=== PATIENT | male | born 1970 ===

== ENCOUNTER 2022-04-30 15:31 | Emergency (ER) | payer BC, SELFPAY ==
[2022-04-30 16:00] VITALS: BP 155/92; PULSE 56; RESP 18; TEMP 36.8; O2SAT 97; BMI 43.5
--- NOTE | 2022-04-30 17:45 | ED_ITS ---
HPI - Back Pain/Injury General Time Seen by Provider: 17:45 Date Seen: 04/30/22 Chief Complaint: Back Injury/Pain Stated Complaint: Muscle spasms lower back Time Seen by Provider: 04/30/22 17:45 Source: patient, RN notes reviewed and old records reviewed Mode of arrival: ambulatory Limitations: no limitations History of Present Illness HPI Narrative: Patient is a very pleasant 51-year-old gentleman with history of back injury who notes worsening low back and left gluteal pain for approximately 1 month. Patient states this seemed to come on approximately month month ago when he was in the gym. This involved lower back tightness that would wrap around the abdomen. He was seen and given cyclobenzaprine but he did not feel that it helped greatly. His never been on steroids. He states that the pain seems to be getting worse. He notes that he has discomfort extending into both gluteal areas left greater than right. He does not have pain into his legs. He feels like his glutes and quads are very tight and does cm for him have improvement when he uses the foam rolling ball and stretches out. He notes that occasionally both of his small toes are numb but not at this time. He has not had fever chills. He denies any other trauma. No loss of bowel or bladder control or numbness in the genital area. Related Data Home Medications Medication Instructions Recorded Confirmed albuterol 04/30/22 Previous Rx's Medication Instructions Recorded methylprednisolone 4 mg tablets in See Rx Instructions PO .COMPLEX 04/30/22 a dose pack (Medrol (Rajat)) #21 ea Allergies Allergy/AdvReac Type Severity Reaction Status Date / Time iodine Allergy Intermediate Verified 04/30/22 16:06 Review of Systems Status of ROS: Reports: 6 or more systems reviewed and unremarkable except as noted in History and below Const: Denies: fever or chills ENMT: Denies: neck pain Cardio: Denies: shortness of breath with exertion Resp: Denies: shortness of breath GI: Reports: abdominal pain (Pain wraps around to the lower abdominal area.) : Denies: painful urination or urinary frequency Musculo: Reports: back pain; Denies: neck pain Neuro: Denies: headache Psych: Denies: anxiety Exam Narrative: Exam Narrative: Patient is alert and oriented. No acute distress. He does stand up from sitting position and does take a moment to stretch. He has no palpable tenderness down lumbar spine. Denies pain with palpation into the buttocks. He is hesitant to do straight forward bend. Lower extremity strength and motor is fully intact. 1+ DTRs at the knees and the ankles. He is able to stand on his toes stand on his ankles. No evidence of weakness in the feet. Hip flexors are intact bilaterally. Sensation is fully intact Const: Vital Signs, click to edit/add: Vital Signs - 24 hr 04/30/22 16:00 Temperature 98.3 F Pulse Rate [Pulse Oximeter] 56 L Respiratory Rate 18 Blood Pressure [Ri ght Upper Arm] 155/92 H Pulse Oximetry 97 Oxygen Delivery Me thod Room Air Documenting provider has reviewed patient's vital signs: yes Course Course Hospital Course: Given the fact that this has been ongoing for a month we did elect to do x-rays which by my read show no evidence of acute findings. Vital Signs Vital signs: Initial Vital Signs Temperature 98.3 F 04/30/22 16:00 Temperature Source Temporal Artery Scan 04/30/22 16:00 Pulse Rate 56 L 04/30/22 16:00 Respiratory Rate 18 04/30/22 16:00 Blood Pressure 155/92 H 04/30/22 16:00 Blood Pressure Mean 113 04/30/22 16:00 Blood Pressure Position Supine 04/30/22 16:00 Pulse Oximetry 97 04/30/22 16:00 Oxygen Delivery Method 04/30/22 16:00 Vital Signs Temperature 98.3 F 04/30/22 16:00 Pulse Rate 56 L 04/30/22 16:00 Respiratory Rate 18 04/30/22 16:00 Blood Pressure 155/92 H 04/30/22 16:00 Pulse Oximetry 97 04/30/22 16:00 Oxygen Delivery Method 04/30/22 16:00 Temperature 98.3 F 04/30/22 16:00 Pulse Rate 56 L 04/30/22 16:00 Respiratory Rate 18 04/30/22 16:00 Blood Pressure 155/92 H 04/30/22 16:00 Pulse Oximetry 97 04/30/22 16:00 Oxygen Delivery Method 04/30/22 16:00 MDM - Back Pain/Injury MDM Narrative Medical decision making narrative: 1. Low back pain-patient is noted to have reassuring x-rays and no red flag symptoms upon exam. At this time I would suggest the use of steroids Medrol Dosepak starting tomorrow morning. Patient is advised of the side effects of this medication. He should take it with food. Would also suggest physical therapy as I think this will definitely help him. If he is not noting improvement he may in need of an MRI. 2. Disposition-patient is discharged home. Return to the ER for worsening symptoms. 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 Imaging Data Lumbar spine: Attestation: I have reviewed the pertinent imaging results. My impression: No acute findings Radiologist's impression: None Findings/Impression: Limited evaluation secondary to body habitus, and large amount of overlying fecal matter and bowel gas in the colon. No acute displaced fracture or evidence of traumatic malalignment identified. Mild multilevel facet arthropathy. Discharge Plan Discharge Clinical Impression: Low back pain Patient Disposition: Home, Self-Care Condition: Unchanged Additional Instructions: Suggest use of steroid over the next 5 days to see if back pain improves. Please take it with food. Gentle stretching. Physical therapy consult as well. Follow-up with Lupis in the clinic. Return to the emergency room for worsening symptoms. Prescriptions: New methylprednisolone [Medrol (Rajat)] 4 mg tablets,dose pack See Rx Instructions .ROUTE .COMPLEX Qty: 21 0RF Rx Instructions: orally per package directions No Action albuterol Follow Up/Referrals: Bryan Mendoza MD [Primary Care Provider] - Stand Alone Forms: [employer] Info Instructions
--- NOTE | 2022-04-30 18:11 | CRLHL7_ITS ---
For Patients: As a result of the Cures Act, medical imaging exams and procedure reports are released immediately into your electronic medical record. You may view this report before your referring provider. If you have questions, please contact your health care provider. Indication: Low-back pain. Technique: Two views of the lumbar spine, AP, lateral. Comparison: None Findings/Impression: Limited evaluation secondary to body habitus, and large amount of overlying fecal matter and bowel gas in the colon. No acute displaced fracture or evidence of traumatic malalignment identified. Mild multilevel facet arthropathy. Dictated by Jie Acuña MD @ 04/30/2022 7:04:33 PM (Electronically Signed)
--- NOTE | 2022-04-30 19:20 | ED.NURSE ---
pt given note for work and PT referral
== END 2022-04-30 19:21 | disposition home or self-care (01) ==
PROVIDERS: Emergency Provider Family Medicine; PCP Family Medicine
DX: M54.50 Low back pain, unspecified (principal)
CPT/HCPCS: 72100; 99283

== ENCOUNTER 2022-09-18 11:15 | Outpatient (RCR) | payer BC, SELFPAY | END 2023-01-16 23:59 | disposition home or self-care (01) | PROVIDERS: PCP Family Medicine; Visit Provider Family Medicine | DX: M54.50 Low back pain, unspecified (principal); M25.60 Stiffness of unspecified joint, not elsewhere classified; R53.1 Weakness; Z51.89 Encounter for other specified aftercare | CPT/HCPCS: 97110; 97161 ==

== ENCOUNTER 2022-10-16 11:15 | Outpatient (RCR) | payer BC, SELFPAY | END 2023-02-13 23:59 | disposition home or self-care (01) | PROVIDERS: PCP Family Medicine; Visit Provider Family Medicine | DX: M25.562 Pain in left knee (principal); Z51.89 Encounter for other specified aftercare | CPT/HCPCS: 97110; 97161 ==

== ENCOUNTER 2023-04-16 15:03 | Emergency (ER) | payer BC, SELFPAY ==
[2023-04-16] VITALS (28 sets, daily range): BP systolic 115–159; BP diastolic 86–121; PULSE 67–88; RESP 16–18; TEMP 35.9; O2SAT 93–97; BMI 45.4
--- NOTE | 2023-04-16 15:14 | ED.GENADULT ---
HPI - General Adult General Time Seen by Provider: 15:14 <Florence Ward - Last Filed: 04/16/23 16:55> Date Seen: 04/16/23 <Florence Ward - Last Filed: 04/16/23 16:55> Chief complaint: Arrhythmia/Palpitations <Florencemarlys Wadr - Last Filed: 04/16/23 16:55> Stated complaint: L side chest pain, sweating intermittently <Florencemarlys Ward Last Filed: 04/16/23 16:55> Time Seen by Provider: 04/16/23 15:09 <Florence Ward - Last Filed: 04/16/23 16:55> Source: patient <Florence Ward Last Filed: 04/16/23 16:55> Mode of arrival: ambulatory <Florencemarlys Ward Filed: 04/16/23 16:55> Limitations: no limitations <Florencemarlys Ward Filed: 04/16/23 16:55> History of Present Illness HPI narrative: Pt presents with 20 minutes of L sided chest pressure and tightness with diaphoresis. He was cooking when the tightness started and he reports no radiation into his arms or nausea. He denies shortness of breath and reports that the pain did not increase on his walk into the building. He reports that he was sick last week with a fever, sore throat, cough, and congestion and has been feeling better the past few days. He denies palpitations, dizziness, vomiting, diarrhea, or abdominal pain but does note a tightness around his lower abdomen along his belt line. He was diagnosed with atrial fibrillation approximately 1 month ago and was started on amiodarone and Xarelto. His dad had a hx of unspecified heart disease at the age of 70. No personal hx of diagnoses heart disease. <Florence Ward Last Filed: 04/16/23 16:55> Related Data Home medications: Home Medications Medication Instructions Recorded Confirmed albuterol 04/30/22 amiodarone 200 mg tablet mg PO 04/16/23 cyclobenzaprine 10 mg tablet 10 mg PO QPM 04/16/23 04/16/23 rivaroxaban 20 mg tablet (Xarelto) 20 mg PO DAILY 04/16/23 04/16/23 <Florence Ward - Last Filed: 04/16/23 16:55> Allergies/adverse reactions: Allergies Allergy/AdvReac Type Severity Reaction Status Date / Time iodine Allergy Intermediate Verified 04/30/22 16:06 < Last Filed: 04/16/23 16:55> Review of Systems Status of ROS: Reports: 10 or more systems reviewed and unremarkable except as noted in History and below < Last Filed: 04/16/23 16:55> PFSH PFSH Social History: Social History Smoking Status: Never smoker Do you use any of these nicotine containing products: None How often do you have a drink containing alcohol: never How often do you have six or more drinks on one occasion: Never AUDIT-C Alcohol total score: 0 Non-prescribed substance use: denies use < Last Filed: 04/16/23 16:55> Exam Narrative: Exam Narrative: General: Pt is seated upright in bed and is A&Ox3 HEENT: Normocephalic, atraumatic, PEERL Cardiac: Irregularly irregular, pain not reproducible to palpation Resp: CTAB Abdomen: Soft, nontender, no rebound or guarding. +BS. MSK: No LE edema or erythema or warmth < Last Filed: 04/16/23 16:55> Const: Vital Signs, click to edit/add: Vital Signs - 24 hr 04/16/23 15:09 04/16/23 15:53 04/16/23 15:54 Temperature 96.7 F L Pulse Rate 88 82 Pulse Rate [Pulse Oximeter] 84 Respiratory Rate 16 Blood Pressure 129/93 H Blood Pressure [Ri ght Forearm] 159/110 H Pulse Oximetry 96 95 93 Oxygen Delivery Me thod Room Air 04/16/23 16:00 04/16/23 16:02 04/16/23 16:15 Temperature Pulse Rate 79 87 Pulse Rate [Pulse Oximeter] Respiratory Rate Blood Pressure 120/91 H Blood Pressure [Ri ght Forearm] Pulse Oximetry 96 97 Oxygen Delivery Me thod 04/16/23 16:30 04/16/23 16:32 04/16/23 16:33 Temperature Pulse Rate 76 75 71 Pulse Rate [Pulse Oximeter] Respiratory Rate Blood Pressure 125/95 H Blood Pressure [Ri ght Forearm] Pulse Oximetry 96 95 93 Oxygen Delivery Me thod 04/16/23 16:45 04/16/23 17:00 04/16/23 17:02 Temperature Pulse Rate 76 82 82 Pulse Rate [Pulse Oximeter] Respiratory Rate Blood Pressure 133/91 H Blood Pressure [Ri ght Forearm] Pulse Oximetry 96 95 94 Oxygen Delivery Me thod 04/16/23 17:15 04/16/23 17:30 04/16/23 17:32 Temperature Pulse Rate 75 76 77 Pulse Rate [Pulse Oximeter] Respiratory Rate Blood Pressure 141/103 H Blood Pressure [Ri ght Forearm] Pulse Oximetry 94 97 96 Oxygen Delivery Me thod 04/16/23 17:45 04/16/23 18:00 04/16/23 18:02 Temperature Pulse Rate 75 79 79 Pulse Rate [Pulse Oximeter] Respiratory Rate Blood Pressure 159/121 H Blood Pressure [Ri ght Forearm] Pulse Oximetry 95 96 96 Oxygen Delivery Me thod 04/16/23 18:15 04/16/23 18:30 04/16/23 18:32 Temperature Pulse Rate 77 69 72 Pulse Rate [Pulse Oximeter] Respiratory Rate Blood Pressure 115/90 H Blood Pressure [Ri ght Forearm] Pulse Oximetry 96 97 97 Oxygen Delivery Me thod 04/16/23 18:45 04/16/23 19:00 04/16/23 19:00 Temperature Pulse Rate 68 67 Pulse Rate [Pulse Oximeter] Respiratory Rate 18 Blood Pressure Blood Pressure [Ri ght Forearm] Pulse Oximetry 95 95 Oxygen Delivery Me thod 04/16/23 19:02 04/16/23 19:15 Temperature Pulse Rate 69 78 Pulse Rate [Pulse Oximeter] Respiratory Rate Blood Pressure 120/86 Blood Pressure [Ri ght Forearm] Pulse Oximetry 95 96 Oxygen Delivery Me thod <Florence Ed - Last Filed: 04/16/23 16:55> Vital Signs, click to edit/add: Vital Signs - 24 hr 04/16/23 15:09 04/16/23 15:53 04/16/23 15:54 Temperature 96.7 F L Pulse Rate 88 82 Pulse Rate [Pulse Oximeter] 84 Respiratory Rate 16 Blood Pressure 129/93 H Blood Pressure [Ri ght Forearm] 159/110 H Pulse Oximetry 96 95 93 Oxygen Delivery Me thod Room Air 04/16/23 16:00 04/16/23 16:02 04/16/23 16:15 Temperature Pulse Rate 79 87 Pulse Rate [Pulse Oximeter] Respiratory Rate Blood Pressure 120/91 H Blood Pressure [Ri ght Forearm] Pulse Oximetry 96 97 Oxygen Delivery Me thod 04/16/23 16:30 04/16/23 16:32 04/16/23 16:33 Temperature Pulse Rate 76 75 71 Pulse Rate [Pulse Oximeter] Respiratory Rate Blood Pressure 125/95 H Blood Pressure [Ri ght Forearm] Pulse Oximetry 96 95 93 Oxygen Delivery Me thod 04/16/23 16:45 04/16/23 17:00 04/16/23 17:02 Temperature Pulse Rate 76 82 82 Pulse Rate [Pulse Oximeter] Respiratory Rate Blood Pressure 133/91 H Blood Pressure [Ri ght Forearm] Pulse Oximetry 96 95 94 Oxygen Delivery Me thod 04/16/23 17:15 04/16/23 17:30 04/16/23 17:32 Temperature Pulse Rate 75 76 77 Pulse Rate [Pulse Oximeter] Respiratory Rate Blood Pressure 141/103 H Blood Pressure [Ri ght Forearm] Pulse Oximetry 94 97 96 Oxygen Delivery Me thod 04/16/23 17:45 04/16/23 18:00 04/16/23 18:02 Temperature Pulse Rate 75 79 79 Pulse Rate [Pulse Oximeter] Respiratory Rate Blood Pressure 159/121 H Blood Pressure [Ri ght Forearm] Pulse Oximetry 95 96 96 Oxygen Delivery Me thod 04/16/23 18:15 04/16/23 18:30 04/16/23 18:32 Temperature Pulse Rate 77 69 72 Pulse Rate [Pulse Oximeter] Respiratory Rate Blood Pressure 115/90 H Blood Pressure [Ri ght Forearm] Pulse Oximetry 96 97 97 Oxygen Delivery Me thod 04/16/23 18:45 04/16/23 19:00 04/16/23 19:00 Temperature Pulse Rate 68 67 Pulse Rate [Pulse Oximeter] Respiratory Rate 18 Blood Pressure Blood Pressure [Ri ght Forearm] Pulse Oximetry 95 95 Oxygen Delivery Me thod 04/16/23 19:02 04/16/23 19:15 Temperature Pulse Rate 69 78 Pulse Rate [Pulse Oximeter] Respiratory Rate Blood Pressure 120/86 Blood Pressure [Ri ght Forearm] Pulse Oximetry 95 96 Oxygen Delivery Me thod <Mikal Louis, DO - Last Filed: 04/16/23 21:04> Course Vital Signs Vital signs: Initial Vital Signs Temperature 96.7 F L 04/16/23 15:09 Temperature Source Temporal Artery Scan 04/16/23 15:09 Pulse Rate 84 04/16/23 15:09 Pulse Rhythm Irregular 04/16/23 15:09 Pulse Strength 3+ Normal 04/16/23 15:09 Respiratory Rate 16 04/16/23 15:09 Blood Pressure 159/110 H 04/16/23 15:09 Blood Pressure Mean 126 H 04/16/23 15:09 Blood Pressure Position Semi-Fowlers 04/16/23 15:09 Pulse Oximetry 96 04/16/23 15:09 Oxygen Delivery Method Room Air 04/16/23 15:09 Vital Signs Temperature 96.7 F L 04/16/23 15:09 Pulse Rate 84 04/16/23 15:09 Respiratory Rate 16 04/16/23 15:09 Blood Pressure 159/110 H 04/16/23 15:09 Pulse Oximetry 96 04/16/23 15:09 Oxygen Delivery Method Room Air 04/16/23 15:09 Temperature 96.7 F L 04/16/23 15:09 Pulse Rate 78 04/16/23 19:15 Respiratory Rate 18 04/16/23 19:00 Blood Pressure 120/86 04/16/23 19:02 Pulse Oximetry 96 04/16/23 19:15 Oxygen Delivery Method Room Air 04/16/23 15:09 <Florence Ward - Last Filed: 04/16/23 16:55> Initial Vital Signs Temperature 96.7 F L 04/16/23 15:09 Temperature Source Temporal Artery Scan 04/16/23 15:09 Pulse Rate 84 04/16/23 15:09 Pulse Rhythm Irregular 04/16/23 15:09 Pulse Strength 3+ Normal 04/16/23 15:09 Respiratory Rate 16 04/16/23 15:09 Blood Pressure 159/110 H 04/16/23 15:09 Blood Pressure Mean 126 H 04/16/23 15:09 Blood Pressure Position Semi-Fowlers 04/16/23 15:09 Pulse Oximetry 96 04/16/23 15:09 Oxygen Delivery Method Room Air 04/16/23 15:09 Vital Signs Temperature 96.7 F L 04/16/23 15:09 Pulse Rate 84 04/16/23 15:09 Respiratory Rate 16 04/16/23 15:09 Blood Pressure 159/110 H 04/16/23 15:09 Pulse Oximetry 96 04/16/23 15:09 Oxygen Delivery Method Room Air 04/16/23 15:09 Temperature 96.7 F L 04/16/23 15:09 Pulse Rate 78 04/16/23 19:15 Respiratory Rate 18 04/16/23 19:00 Blood Pressure 120/86 04/16/23 19:02 Pulse Oximetry 96 04/16/23 19:15 Oxygen Delivery Method Room Air 04/16/23 15:09 <Mikal Louis DO - Last Filed: 04/16/23 21:04> Medications Administered Medications: Discontinued Medications Generic Name Dose Route Start Last Admin Trade Name Freq PRN Reason Stop Dose Admin Aspirin 324 mg 04/16/23 15:34 04/16/23 15:41 Aspirin 81 Mg Tab.Chew PO 04/16/23 15:35 324 mg ONCE ONE Administration Nitroglycerin 0.4 mg 04/16/23 15:34 04/16/23 15:42 Nitroglycerin 0.4 Mg Tab.Subl SUBLINGUAL 04/16/23 15:35 0.4 mg ONCE ONE Administration <Florence Looan - Last Filed: 04/16/23 16:55> Discontinued Medications Generic Name Dose Route Start Last Admin Trade Name Freq PRN Reason Stop Dose Admin Aspirin 324 mg 04/16/23 15:34 04/16/23 15:41 Aspirin 81 Mg Tab.Chew PO 04/16/23 15:35 324 mg ONCE ONE Administration Nitroglycerin 0.4 mg 04/16/23 15:34 04/16/23 15:42 Nitroglycerin 0.4 Mg Tab.Subl SUBLINGUAL 04/16/23 15:35 0.4 mg ONCE ONE Administration <Mikal Louis DO - Last Filed: 04/16/23 21:04> Medical Decision Making MDM Narrative Medical decision making narrative: Pt presented with ~20 minutes of new onset L sided chest tightness and diaphoresis. Pain not reproducible on palpation. BP elevated at 159/110 and EKG showed afib with a HR of 84. We treated him with nitro and aspirin with improvement of sx and proceeded with a cardiac workup. Initial troponin negative. CXR showed . Recommend outpatient follow up with cardiology . Please return to the ED if you experience a return of chest pain or pressure or shortness of breath. <Florence Looan - Last Filed: 04/16/23 16:55> Pt presented with ~20 minutes of new onset L sided chest tightness and diaphoresis. Pain not reproducible on palpation. Patient does have a history of AFib but does states he was cardioverted 1 month ago while in the hospital for it. It was 1st diagnosed 1 month ago. He is currently on amiodarone and Xarelto. Differential includes viral infection, pneumothorax, pneumonia, ACS. Seems unlikely to be a pulmonary embolism at this time. He is not having any shortness of breath, not tachypneic, and not tachycardic. This is troponin came back negative. CBC and CMP showed no concerning abnormalities. His white blood cell count slightly low any did test positive a peer for COVID. The low white blood cell count is likely from the COVID. Did got nitro his pain is gone now but he does state the pain started going away before he ever even got the nitro does not know if it did anything. We did repeat his troponin and went from less than 0.01 to 0.02. This is still within normal body did have a notable increase the chance of that we will do a 3rd troponin. This 3rd troponin was back down to less than 0.01. At this point I believe it is safe to discharge her home I unlikely to be myocarditis or ACS. 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 He is otherwise feeling well at this time. He does states he started with some viral symptoms this past Friday and this likely the start of his symptoms. He is now on day 6 and can be out of quarantine. He will be discharged home. <Mikal Louis DO - Last Filed: 04/16/23 21:04> Lab Data Labs: Lab Results 04/16/23 04/16/23 04/16/23 Range/Units 15:44 15:55 15:56 WBC 3.64 L (4.50-11.00) K/uL RBC 5.09 (4.30-5.90) m/uL Hgb 15.5 (13.5-17.5) gm/dL Hct 47.0 (37.0-53.0) % MCV 92 (80-100) fL MCH 31 (26-34) pg MCHC 33 (32-36) gm/dL RDW Coeff of Daljit 12.9 (11.5-15.5) % Plt Count 229 (140-440) K/uL Neut % (Auto) 44.6 (42.0-72.0) % Lymph % (Auto) 39.8 (20-44) % Faulkner % (Auto) 9.9 (0.0-11.0) % Eos % (Auto) 5.2 (0.0-7.0) % Baso % (Auto) 0.5 (0.0-3.0) % Neut # (Auto) 1.60 L (1.7-7.0) K/uL Lymph # (Auto) 1.40 (0.90-2.90) K/uL Faulkner # (Auto) 0.40 (0.00-0.90) K/UL Eos # (Auto) 0.20 (0.00-0.50) K/uL Baso # (Auto) 0.00 (0.00-0.30) K/uL Abs Immat Gran (auto) 0.00 (0.00-0.30) K/uL Imm/Tot Granulo (auto) 0.0 % Sodium 139 (135-149) mmol/L Potassium 4.1 (3.6-5.1) mmol/L Chloride 104 (96-114) mmol/L Carbon Dioxide 24 (20-32) mmol/L Anion Gap 11 (7-15) mEq/L BUN 16 (7-30) mg/dL Creatinine 1.0 (0.5-1.5) mg/dL Estimated Creat Clear 79.87 Estimated GFR 90 ml/min Glucose 112 (60-115) mg/dL Calcium 8.6 (8.4-10.6) mg/dL Total Bilirubin 0.4 (0.1-1.5) mg/dL AST 38 H (12-35) U/L ALT 46 (4-50) U/L Alkaline Phosphatase 62 (40-150) U/L Troponin I < 0.01 L (0.01-0.04) ng/mL Total Protein 7.3 (6.0-8.3) g/dL Albumin 4.2 (3.3-5.0) g/dL SARS-CoV-2 (PCR) POSITIVE SARS-CoV-2 A (Negative) Influenza Type A (PCR) Negative PCR FLU A (Negative) Influenza Type B (PCR) Negative PCR FLU B (Negative) POC Troponin I 0.00 L (0.01-0.04) ng/ml 04/16/23 04/16/23 Range/Units 18:21 20:26 WBC (4.50-11.00) K/uL RBC (4.30-5.90) m/uL Hgb (13.5-17.5) gm/dL Hct (37.0-53.0) % MCV (80-100) fL MCH (26-34) pg MCHC (32-36) gm/dL RDW Coeff of Daljit (11.5-15.5) % Plt Count (140-440) K/uL Neut % (Auto) (42.0-72.0) % Lymph % (Auto) (20-44) % Faulkner % (Auto) (0.0-11.0) % Eos % (Auto) (0.0-7.0) % Baso % (Auto) (0.0-3.0) % Neut # (Auto) (1.7-7.0) K/uL Lymph # (Auto) (0.90-2.90) K/uL Faulkner # (Auto) (0.00-0.90) K/UL Eos # (Auto) (0.00-0.50) K/uL Baso # (Auto) (0.00-0.30) K/uL Abs Immat Gran (auto) (0.00-0.30) K/uL Imm/Tot Granulo (auto) % Sodium (135-149) mmol/L Potassium (3.6-5.1) mmol/L Chloride (96-114) mmol/L Carbon Dioxide (20-32) mmol/L Anion Gap (7-15) mEq/L BUN (7-30) mg/dL Creatinine (0.5-1.5) mg/dL Estimated Creat Clear Estimated GFR ml/min Glucose (60-115) mg/dL Calcium (8.4-10.6) mg/dL Total Bilirubin (0.1-1.5) mg/dL AST (12-35) U/L ALT (4-50) U/L Alkaline Phosphatase (40-150) U/L Troponin I 0.02 < 0.01 L (0.01-0.04) ng/mL Total Protein (6.0-8.3) g/dL Albumin (3.3-5.0) g/dL SARS-CoV-2 (PCR) (Negative) Influenza Type A (PCR) (Negative) Influenza Type B (PCR) (Negative) POC Troponin I (0.01-0.04) ng/ml <Florence London - Last Filed: 04/16/23 16:55> Lab Results 04/16/23 04/16/23 04/16/23 Range/Units 15:44 15:55 15:56 WBC 3.64 L (4.50-11.00) K/uL RBC 5.09 (4.30-5.90) m/uL Hgb 15.5 (13.5-17.5) gm/dL Hct 47.0 (37.0-53.0) % MCV 92 (80-100) fL MCH 31 (26-34) pg MCHC 33 (32-36) gm/dL RDW Coeff of Daljit 12.9 (11.5-15.5) % Plt Count 229 (140-440) K/uL Neut % (Auto) 44.6 (42.0-72.0) % Lymph % (Auto) 39.8 (20-44) % Faulkner % (Auto) 9.9 (0.0-11.0) % Eos % (Auto) 5.2 (0.0-7.0) % Baso % (Auto) 0.5 (0.0-3.0) % Neut # (Auto) 1.60 L (1.7-7.0) K/uL Lymph # (Auto) 1.40 (0.90-2.90) K/uL Faulkner # (Auto) 0.40 (0.00-0.90) K/UL Eos # (Auto) 0.20 (0.00-0.50) K/uL Baso # (Auto) 0.00 (0.00-0.30) K/uL Abs Immat Gran (auto) 0.00 (0.00-0.30) K/uL Imm/Tot Granulo (auto) 0.0 % Sodium 139 (135-149) mmol/L Potassium 4.1 (3.6-5.1) mmol/L Chloride 104 (96-114) mmol/L Carbon Dioxide 24 (20-32) mmol/L Anion Gap 11 (7-15) mEq/L BUN 16 (7-30) mg/dL Creatinine 1.0 (0.5-1.5) mg/dL Estimated Creat Clear 79.87 Estimated GFR 90 ml/min Glucose 112 (60-115) mg/dL Calcium 8.6 (8.4-10.6) mg/dL Total Bilirubin 0.4 (0.1-1.5) mg/dL AST 38 H (12-35) U/L ALT 46 (4-50) U/L Alkaline Phosphatase 62 (40-150) U/L Troponin I < 0.01 L (0.01-0.04) ng/mL Total Protein 7.3 (6.0-8.3) g/dL Albumin 4.2 (3.3-5.0) g/dL SARS-CoV-2 (PCR) POSITIVE SARS-CoV-2 A (Negative) Influenza Type A (PCR) Negative PCR FLU A (Negative) Influenza Type B (PCR) Negative PCR FLU B (Negative) POC Troponin I 0.00 L (0.01-0.04) ng/ml 04/16/23 04/16/23 Range/Units 18:21 20:26 WBC (4.50-11.00) K/uL RBC (4.30-5.90) m/uL Hgb (13.5-17.5) gm/dL Hct (37.0-53.0) % MCV (80-100) fL MCH (26-34) pg MCHC (32-36) gm/dL RDW Coeff of Daljit (11.5-15.5) % Plt Count (140-440) K/uL Neut % (Auto) (42.0-72.0) % Lymph % (Auto) (20-44) % Faulkner % (Auto) (0.0-11.0) % Eos % (Auto) (0.0-7.0) % Baso % (Auto) (0.0-3.0) % Neut # (Auto) (1.7-7.0) K/uL Lymph # (Auto) (0.90-2.90) K/uL Faulkner # (Auto) (0.00-0.90) K/UL Eos # (Auto) (0.00-0.50) K/uL Baso # (Auto) (0.00-0.30) K/uL Abs Immat Gran (auto) (0.00-0.30) K/uL Imm/Tot Granulo (auto) % Sodium (135-149) mmol/L Potassium (3.6-5.1) mmol/L Chloride (96-114) mmol/L Carbon Dioxide (20-32) mmol/L Anion Gap (7-15) mEq/L BUN (7-30) mg/dL Creatinine (0.5-1.5) mg/dL Estimated Creat Clear Estimated GFR ml/min Glucose (60-115) mg/dL Calcium (8.4-10.6) mg/dL Total Bilirubin (0.1-1.5) mg/dL AST (12-35) U/L ALT (4-50) U/L Alkaline Phosphatase (40-150) U/L Troponin I 0.02 < 0.01 L (0.01-0.04) ng/mL Total Protein (6.0-8.3) g/dL Albumin (3.3-5.0) g/dL SARS-CoV-2 (PCR) (Negative) Influenza Type A (PCR) (Negative) Influenza Type B (PCR) (Negative) POC Troponin I (0.01-0.04) ng/ml <Mikal Louis DO - Last Filed: 04/16/23 21:04> ECG Data Attestation: I personally reviewed and interpreted this ECG as follows: <Mikal Louis DO - Last Filed: 04/16/23 21:04> Interpretation: EKG shows AFib with a rate of 85 beats per minute, left axis deviation, QRS QTC are normal, no ST or T-wave abnormalities <Mikal Louis DO - Last Filed: 04/16/23 21:04> Discharge Plan Discharge Clinical Impression: COVID <Florence Ward - Last Filed: 04/16/23 16:55> Patient Disposition: Home, Self-Care <Florence Ward - Last Filed: 04/16/23 16:55> Condition: Improved <Florence Ward Last Filed: 04/16/23 16:55> Instructions: COVID-19 (Coronavirus Disease 2019) (ED) <Florence Ward Last Filed: 04/16/23 16:55> Additional Instructions: 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 Return to the emergency department for new or worsening symptoms. <Florence Ward Last Filed: 04/16/23 16:55> Prescriptions: No Action cyclobenzaprine 10 mg tablet 10 mg PO QPM amiodarone 200 mg tablet PO Xarelto 20 mg tablet 20 mg PO DAILY albuterol <Florence Ward Last Filed: 04/16/23 16:55> Follow Up/Referrals: Bryan Mendoza MD [Primary Care Provider] - <Florence Ward Last Filed: 04/16/23 16:55> Stand Alone Forms: [facility] Info Instructions <Florence Ward Last Filed: 04/16/23 16:55>
--- NOTE | 2023-04-16 15:34 | CRLHL7_ITS ---
For Patients: As a result of the Century Cures Act, medical imaging exams and procedure reports are released immediately into your electronic medical record. You may view this report before your referring provider. If you have questions, please contact your health care provider. INDICATION: Chest pain. TECHNIQUE: Chest 2 view. Permanently recorded images are archived. COMPARISON: 11/17/2013 FINDINGS: Cardiovascular and mediastinum: Heart size and vasculature are normal in caliber and appearance. Lungs and pleural spaces: Unchanged right apex calcified granuloma. No focal consolidation. No pleural effusion or pneumothorax. Routine slight elevation of the right hemidiaphragm. Bones and soft tissues: Unremarkable for age. IMPRESSION: No evidence of an acute pulmonary process. Dictated by Judson Enriquez MD @ 04/16/2023 6:03:33 PM (Electronically Signed)
[2023-04-16] MEDS: ASPIRIN 81 MG TAB.CHEW 324 MG PO (15:41)
[2023-04-16] MEDS: NITROGLYCERIN 0.4 MG TAB.SUBL SUBLINGUAL (15:42)
--- NOTE | 2023-04-16 15:45 | ED.NURSE ---
Pt reports improved chest pressure after nitro given.
[2023-04-16 16:17] LABS: Basophils Percent Auto 0.5 % (0.0-3.0); Eosinophils Percent Auto 5.2 % (0.0-7.0); Hemoglobin* 15.5 gm/dL (13.5-17.5); Lymphocytes Percent Auto 39.8 % (20-44); Mean Corpuscular HGB Conc 33 gm/dL (32-36); Mean Corpuscular Hemoglobin 31 pg (26-34); Mean Corpuscular Volume 92 fL (80-100); Monocytes Percent Auto 9.9 % (0.0-11.0); Neutrophils Percent Auto 44.6 % (42.0-72.0); Platelet Count* 229 K/uL (140-440); RDW Coefficient of Variation % 12.9 % (11.5-15.5); Red Blood Count 5.09 m/uL (4.30-5.90); Slide Review Reflex No; White Blood Count* 3.64 K/uL (4.50-11.00)
[2023-04-16 16:18] LABS: Albumin* 4.2 g/dL (3.3-5.0); Chloride* 104 mmol/L (96-114); Sodium* 139 mmol/L (135-149)
[2023-04-16 16:19] LABS: Potassium* 4.1 mmol/L (3.6-5.1)
[2023-04-16 16:21] LABS: Alkaline Phosphatase* 62 U/L (40-150); Anion Gap 11 mEq/L (7-15); Aspartate Amino Transferase* 38 U/L (12-35); Bilirubin Total* 0.4 mg/dL (0.1-1.5); Blood Urea Nitrogen* 16 mg/dL (7-30); Carbon Dioxide* 24 mmol/L (20-32); Est. Creatinine Clearance* 79.87; Estimated Glomerular Filt Rate 90 ml/min; Total Protein* 7.3 g/dL (6.0-8.3)
[2023-04-16 16:22] LABS: Alanine Aminotransferase* 46 U/L (4-50); Calcium* 8.6 mg/dL (8.4-10.6); Glucose* 112 mg/dL (60-115)
[2023-04-16 16:36] LABS: Troponin I* < 0.01 ng/mL (0.01-0.04)
[2023-04-16 16:58] LABS: PCR FLU A Negative PCR FLU A (Negative); PCR FLU B Negative PCR FLU B (Negative)
[2023-04-16 17:06] LABS: SARS PCR* POSITIVE SARS-CoV-2 (Negative)
[2023-04-16 18:56] LABS: Troponin I* 0.02 ng/mL (0.01-0.04)
--- NOTE | 2023-04-16 20:12 | ED.NURSE ---
pt report given to oncsilvestre RN
[2023-04-16 21:00] LABS: Troponin I* < 0.01 ng/mL (0.01-0.04)
== END 2023-04-16 21:12 | disposition home or self-care (01) ==
PROVIDERS: Emergency Provider Student in an Organized Health Care Education/Training Program; PCP Family Medicine
DX: R07.9 Chest pain, unspecified (principal); U07.1 COVID-19
CPT/HCPCS: 36415; 71046; 80048; 80053; 84484; 85025; 87631; 93005; 99283; 99284; 99285; A9270

== ENCOUNTER 2023-04-28 08:08 | Emergency (ER) | payer BC, SELFPAY ==
[2023-04-28] VITALS (7 sets, daily range): BP systolic 110–131; BP diastolic 64–87; PULSE 56–73; RESP 16–17; TEMP 36.3; O2SAT 95–98; BMI 45.7
--- NOTE | 2023-04-28 09:00 | CRLHL7_ITS ---
For Patients: As a result of the 21st Century Cures Act, medical imaging exams and procedure reports are released immediately into your electronic medical record. You may view this report before your referring provider. If you have questions, please contact your health care provider. INDICATION: short of breath,left sided chest pain, hx of covid COMPARISON: Chest radiograph 04/16/2023. TECHNIQUE: CT angiogram chest with contrast, pulmonary embolism protocol. Multiplanar axial, coronal, and sagittal reformats are included. MIP images to improve detection of pulmonary emboli are included. Intravenous contrast: 95 mL Isovue 370 FINDINGS: PE: Suboptimal contrast bolus. The pulmonary arteries beyond the segmental level are not well opacified with contrast due to bolus timing. Within that limitation, no pulmonary emboli. Normal main pulmonary artery. Normal sized right heart chambers. No reflux of contrast below the diaphragm. Heart and great vessels: No pericardial effusion. Normal cardiac chamber size. No atherosclerotic plaques. No aortic aneurysm. Lungs: Expiratory phase imaging. Calcified granulomas in the right upper lobe. No worrisome pulmonary nodules or mass. Bibasilar atelectasis.. Normal appearance of the pulmonary interstitium. Pleura: No pleural effusion. No pneumothorax. Airway: Normal tracheobronchial tree. Lymph nodes: No thoracic adenopathy. Mediastinum: No pneumomediastinum. Bones: No fractures. No focal bone lesions. Normal for age. Chest wall: Normal. No masses. Upper abdomen: Normal. IMPRESSION: Suboptimal contrast bolus timing. No pulmonary embolus seen. No secondary findings of right heart failure or pulmonary infarct. Please note that all CT scans at this facility use dose modulation, iterative reconstruction, and/or weight-based dosing when appropriate to reduce radiation dose to as low as reasonably achievable. Dictated by Rachel Ramey MD @ 04/28/2023 10:50:28 AM (Electronically Signed)
[2023-04-28] MEDS: 0.9 % SODIUM CHLORIDE 1000 ml 1,000 ML IV (09:24)
[2023-04-28 09:25] LABS: Basophils Absolute Auto 0.03 K/uL (0.00-0.30); Basophils Percent Auto 0.4 % (0.0-3.0); Eosinophils Absolute Auto 0.24 K/uL (0.00-0.50); Eosinophils Percent Auto 3.5 % (0.0-7.0); Hematocrit 47.7 % (37.0-53.0); Hemoglobin* 15.5 gm/dL (13.5-17.5); Immature Granulocytes Abs Auto 0.01 K/uL (0.00-0.30); Immature Granulocytes Pct Auto 0.1 %; Lymphocytes Absolute Auto 2.21 K/uL (0.90-2.90); Lymphocytes Percent Auto 31.9 % (20-44); Mean Corpuscular HGB Conc 33 gm/dL (32-36); Mean Corpuscular Hemoglobin 30 pg (26-34); Mean Corpuscular Volume 93 fL (80-100); Monocytes Percent Auto 6.6 % (0.0-11.0); Neutrophils Absolute Auto 3.98 K/uL (1.7-7.0); Neutrophils Percent Auto 57.5 % (42.0-72.0); Platelet Count* 278 K/uL (140-440); Red Blood Count 5.14 m/uL (4.30-5.90); White Blood Count* 6.93 K/uL (4.50-11.00)
[2023-04-28 09:27] LABS: Slide Review Reflex No
[2023-04-28 09:40] LABS: Chloride* 107 mmol/L (96-114); Potassium* 3.8 mmol/L (3.6-5.1); Sodium* 138 mmol/L (135-149)
[2023-04-28 09:42] LABS: Creatinine* 0.9 mg/dL (0.5-1.5); Est. Creatinine Clearance* 88.75; Estimated Glomerular Filt Rate 102 ml/min
[2023-04-28 09:43] LABS: Anion Gap 8 mEq/L (7-15); Blood Urea Nitrogen* 18 mg/dL (7-30); Carbon Dioxide* 23 mmol/L (20-32); Glucose* 115 mg/dL (60-115)
[2023-04-28 09:45] LABS: INR 1.03 (0.91-1.10); Prothrombin Time 14.2 Seconds
[2023-04-28 09:46] LABS: Partial Thromboplastin Time* 34 Seconds (23-33)
[2023-04-28 09:49] LABS: D Dimer Quantitative* < 0.27 ug/ml (0.00-0.50)
[2023-04-28 09:55] LABS: NT Pro B Type NatriureticPept* 89 pg/mL
[2023-04-28 10:22] LABS: Amphetamine Screen Urine Negative (Negative); Barbiturate Screen Urine Negative (Negative); Benzodiazepines Screen Urine Negative (Negative); Cannabinoid Screen Urine Negative (Negative); Cocaine Screen Urine Negative (Negative); Methadone Screen Urine Negative (Negative); Methamphetamines Screen Urine Negative (Negative); Opiate Screen Urine Negative (Negative); Oxycodone Screen Urine Negative (Negative); Phencyclidine Screen Urine Negative (Negative); Tricyclic Antidepressant Urine Negative (Negative)
--- NOTE | 2023-04-28 13:05 | ED_ITS ---
HPI - Chest Pain General Date Seen: 04/28/23 Chief Complaint: Chest Pain Stated Complaint: chest tightness,cough Time Seen by Provider: 04/28/23 09:00 Source: patient Mode of arrival: ambulatory Limitations: no limitations History of Present Illness HPI narrative: Patient is a 52-year-old gentleman who presents here with chest pain he has had this on off since he tested COVID positive 2 weeks ago, he describes left upper chest region with no radiation to his arm shoulder, worse when he takes a deep breath in, but there all the time. His not seem to be no associated shortness of breath, he has had no nausea vomiting any diaphoresis associated with this he has no past history of any cardiac or lung issues. Is a nonsmoker, no family history of pulmonary emboli blood clots. No history of premature coronary artery disease either. Does have a history of occasional atrial fibrillation. And is on Xarelto and amiodarone for this. MD complaint: chest pain Onset: during rest Pain location: left chest Pain radiation: none Severity: mild Quality: tightness Relieving factors: nothing Exacerbating factors: nothing Treatment prior to arrival: none Risk Factors Coronary artery disease risk factors: none Thoracic aortic dissection risk factors: none Related Data Home Medications Medication Instructions Recorded Confirmed albuterol 04/30/22 amiodarone 200 mg tablet 200 mg PO 04/16/23 cyclobenzaprine 10 mg tablet 10 mg PO QPM 04/16/23 04/16/23 rivaroxaban 20 mg tablet (Xarelto) 20 mg PO DAILY 04/16/23 04/28/23 Allergies Allergy/AdvReac Type Severity Reaction Status Date / Time iodine Allergy Intermediate Verified 04/28/23 08:37 Review of Systems Status of ROS Reports: 10 or more systems reviewed and unremarkable except as noted in History and below [facility] Social History Smoking Status: Never smoker Do you use any of these nicotine containing products: None How often do you have a drink containing alcohol: never How often do you have six or more drinks on one occasion: Never AUDIT-C Alcohol total score: 0 Non-prescribed substance use: denies use Exam Narrative Exam Narrative: Patient is speaking normally, noproblem with slurring words, oriented x3. Head eyes ears nose and throat exam show equal pupils, no scleral icterus, extraocular muscles are normal, no facial droop, speech is normal, trachea normal and midline. Thyroid normal midline palpable not enlarged. Chest shows symmetrical rise bilaterally, normal auscultation with no wheezes, no increased work of breathing, no overt bruising or lesions seen, no tenderness is noted on auscultation. No palpable chest pain over the left side of the chest . Heart sounds normal with no S3-S4 no murmurs clicks or gallops. Abdomen shows no obvious masses or hepatosplenomegaly, no organomegaly, bowel sounds are normal in all quadrants. No tenderness is noted also in all quadrants. Upper and lower extremities show normal power, normal range of motion, pulses are normal, sensations normal, fine motor movements are normal, pelvis is stable to rocking. Cervical spine shows normal range of motion, and palpably not tender. Thoracic spine shows normal range of motion, and palpably not tender, lumbar spine shows no tenderness to palpation percussion and is otherwise normal range of motion. Skin shows no rashes, petechiae or eccymosis. Const Vital Signs, click to edit/add: Vital Signs - 24 hr 04/28/23 08:30 04/28/23 08:33 04/28/23 09:00 Temperature 97.4 F L Pulse Rate [Left Pulse Oximeter] 73 71 Respiratory Rate 16 16 Blood Pressure [Left Upper Arm] 112/70 125/84 Pulse Oximetry 95 96 95 Oxygen Delivery Method Room Air Room Air 04/28/23 09:00 04/28/23 09:30 04/28/23 10:00 Temperature Pulse Rate [Left Pulse Oximeter] 66 58 L 63 Respiratory Rate 16 16 16 Blood Pressure [Left Upper Arm] 114/65 110/64 131/80 Pulse Oximetry 95 96 97 Oxygen Delivery Method Room Air Room Air Room Air 04/28/23 10:31 04/28/23 11:00 Temperature Pulse Rate [Left Pulse Oximeter] 57 L 56 L Respiratory Rate 17 16 Blood Pressure [Left Upper Arm] 120/87 113/74 Pulse Oximetry 96 98 Oxygen Delivery Method Room Air Room Air Documenting provider has reviewed patient's vital signs: yes Course Vital Signs Vital signs: Initial Vital Signs Pulse Rate 73 04/28/23 08:30 Pulse Rhythm Irregular 04/28/23 08:30 Respiratory Rate 16 04/28/23 08:30 Respiratory Effort Normal, Spontaneous, Non-Labored 04/28/23 08:30 Respiratory Depth Normal 04/28/23 08:30 Respiratory Pattern Normal 04/28/23 08:30 Blood Pressure 112/70 04/28/23 08:30 Blood Pressure Mean 84 04/28/23 08:30 Blood Pressure Position Sitting 04/28/23 08:30 Pulse Oximetry 95 04/28/23 08:30 Oxygen Delivery Method Room Air 04/28/23 08:30 Vital Signs Pulse Rate 73 04/28/23 08:30 Respiratory Rate 16 04/28/23 08:30 Blood Pressure 112/70 04/28/23 08:30 Pulse Oximetry 95 04/28/23 08:30 Oxygen Delivery Method Room Air 04/28/23 08:30 Temperature 97.4 F L 04/28/23 08:33 Pulse Rate 56 L 04/28/23 11:00 Respiratory Rate 16 04/28/23 11:00 Blood Pressure 113/74 04/28/23 11:00 Pulse Oximetry 98 04/28/23 11:00 Oxygen Delivery Method Room Air 04/28/23 11:00 Medications Administered Medications: Discontinued Medications Generic Name Dose Route Start Last Admin Trade Name Freq PRN Reason Stop Dose Admin Sodium Chloride 1,000 mls @ 1,000 mls/hr 04/28/23 09:00 04/28/23 10:19 0.9 % Sodium Chloride 1000 Ml IV 04/28/23 09:59 Infused .Q1H CAM Infusion MDM - Chest Pain MDM Narrative Medical decision making narrative: During the evaluation of this patient I considered multiple differential diagnosis is. The life-threatening differential diagnosis include coronary disease/[place], pulmonary embolism, pneumothorax, pneumonia, and aortic dissection. Other differential diagnosis included but were not limited to pericarditis, myocarditis, chest wall pain, GERD, esophageal rupture, rib fracture contusion, pleurisy, as well as other etiologies. Medical Records Data Attestation: I reviewed the patient's medical records. Lab Data Attestation: I reviewed the patient's lab results. Labs: Lab Results 04/28/23 04/28/23 04/28/23 Range/Units 08:30 08:30 08:30 WBC 6.93 (4.50-11.00) K/uL RBC 5.14 (4.30-5.90) m/uL Hgb 15.5 (13.5-17.5) gm/dL Hct 47.7 (37.0-53.0) % MCV 93 (80-100) fL MCH 30 (26-34) pg MCHC 33 (32-36) gm/dL RDW Coeff of Daljit 13.0 (11.5-15.5) % Plt Count 278 (140-440) K/uL Neut % (Auto) 57.5 (42.0-72.0) % Lymph % (Auto) 31.9 (20-44) % [place] % (Auto) 6.6 (0.0-11.0) % Eos % (Auto) 3.5 (0.0-7.0) % Baso % (Auto) 0.4 (0.0-3.0) % Neut # (Auto) 3.98 (1.7-7.0) K/uL Lymph # (Auto) 2.21 (0.90-2.90) K/uL [place] # (Auto) 0.50 (0.00-0.90) K/UL Eos # (Auto) 0.24 (0.00-0.50) K/uL Baso # (Auto) 0.03 (0.00-0.30) K/uL Abs Immat Gran (auto) 0.01 (0.00-0.30) K/uL Imm/Tot Granulo (auto) 0.1 % INR 1.03 Cancelled (0.91-1.10) APTT 34 H Cancelled (23-33) Seconds D-Dimer Quant (PE/DVT) < 0.27 (0.00-0.50) ug/ml Sodium 138 (135-149) mmol/L Potassium 3.8 (3.6-5.1) mmol/L Chloride 107 (96-114) mmol/L Carbon Dioxide 23 (20-32) mmol/L Anion Gap 8 (7-15) mEq/L BUN 18 (7-30) mg/dL Creatinine 0.9 (0.5-1.5) mg/dL Estimated Creat Clear 88.75 Estimated GFR 102 ml/min Glucose 115 (60-115) mg/dL Calcium 9.0 (8.4-10.6) mg/dL C-Reactive Protein 1.0 (0.5-1.0) mg/dL NT-Pro-B Natriuret Pep 89 pg/mL Urine Opiates Screen (Negative) Ur Oxycodone Screen (Negative) Urine Methadone Screen (Negative) Ur Propoxyphene Screen Ur Barbiturates Screen (Negative) U Tricyclic Antidepress (Negative) Ur Phencyclidine Scrn (Negative) Ur Amphetamines Screen (Negative) U Methamphetamines Scrn (Negative) U Benzodiazepines Scrn (Negative) Urine Cocaine Screen (Negative) U Marijuana (THC) Screen (Negative) Ur Drug Screen Comment POC Troponin I 0.00 L (0.01-0.04) ng/ml 04/28/23 Range/Units 10:00 WBC (4.50-11.00) K/uL RBC (4.30-5.90) m/uL Hgb (13.5-17.5) gm/dL Hct (37.0-53.0) % MCV (80-100) fL MCH (26-34) pg MCHC (32-36) gm/dL RDW Coeff of Daljit (11.5-15.5) % Plt Count (140-440) K/uL Neut % (Auto) (42.0-72.0) % Lymph % (Auto) (20-44) % [place] % (Auto) (0.0-11.0) % Eos % (Auto) (0.0-7.0) % Baso % (Auto) (0.0-3.0) % Neut # (Auto) (1.7-7.0) K/uL Lymph # (Auto) (0.90-2.90) K/uL [place] # (Auto) (0.00-0.90) K/UL Eos # (Auto) (0.00-0.50) K/uL Baso # (Auto) (0.00-0.30) K/uL Abs Immat Gran (auto) (0.00-0.30) K/uL Imm/Tot Granulo (auto) % INR (0.91-1.10) APTT (23-33) Seconds D-Dimer Quant (PE/DVT) (0.00-0.50) ug/ml Sodium (135-149) mmol/L Potassium (3.6-5.1) mmol/L Chloride (96-114) mmol/L Carbon Dioxide (20-32) mmol/L Anion Gap (7-15) mEq/L BUN (7-30) mg/dL Creatinine (0.5-1.5) mg/dL Estimated Creat Clear Estimated GFR ml/min Glucose (60-115) mg/dL Calcium (8.4-10.6) mg/dL C-Reactive Protein (0.5-1.0) mg/dL NT-Pro-B Natriuret Pep pg/mL Urine Opiates Screen Negative (Negative) Ur Oxycodone Screen Negative (Negative) Urine Methadone Screen Negative (Negative) Ur Propoxyphene Screen Not Reportable Ur Barbiturates Screen Negative (Negative) U Tricyclic Antidepress Negative (Negative) Ur Phencyclidine Scrn Negative (Negative) Ur Amphetamines Screen Negative (Negative) U Methamphetamines Scrn Negative (Negative) U Benzodiazepines Scrn Negative (Negative) Urine Cocaine Screen Negative (Negative) U Marijuana (THC) Screen Negative (Negative) Ur Drug Screen Comment See Note POC Troponin I (0.01-0.04) ng/ml ECG Data Attestation: I personally reviewed and interpreted this ECG as follows: ECG interpretation date: 04/28/23 Interpretation: EKG shows normal sinus rhythm normal EKG with no acute change Discharge Plan Discharge Clinical Impression: History of COVID-19, Chest pain Patient Disposition: Home w/ Parent or Adult Condition: Stable Instructions: Chest Pain (DC), COVID-19 and Chronic Health Conditions (ED) Additional Instructions: Home rest use of ibuprofen for chest pain, no evidence of blood clots, or heart issues. Would continue to watch this, return if increasing chest pain shortness of breath or other issues. Activity Level: Light activity Prescriptions: No Action cyclobenzaprine 10 mg tablet 10 mg PO QPM amiodarone 200 mg tablet 200 mg PO Xarelto 20 mg tablet 20 mg PO DAILY albuterol Follow Up/Referrals: Lupis Juan PA-C [Primary Care Provider] - Stand Alone Forms: [employer] Info Instructions
== END 2023-04-28 12:05 | disposition home or self-care (01) ==
PROVIDERS: Emergency Provider Family Medicine; PCP Physician Assistant Medical
DX: Z86.16 Personal history of COVID-19 (principal); R07.9 Chest pain, unspecified
CPT/HCPCS: 36415; 71275; 80048; 80306; 83880; 84484; 85025; 85379; 85610; 85730; 86140; 93005; 94761; 99284; 99285; J7030; Q9967

== ENCOUNTER 2023-05-22 19:59 | Emergency (ER) | payer BC, SELFPAY ==
[2023-05-22 20:06] VITALS: BP 154/92; PULSE 83; RESP 18; TEMP 36.6; O2SAT 96; BMI 45.7
--- NOTE | 2023-05-22 20:15 | CRLHL7_ITS ---
For Patients: As a result of the Cures Act, medical imaging exams and procedure reports are released immediately into your electronic medical record. You may view this report before your referring provider. If you have questions, please contact your health care provider. INDICATION: Chest pain TECHNIQUE: Chest radiograph 2 views COMPARISON: 04/16/2023 FINDINGS: The sensitivity and specificity of the exam are moderately limited by the patient`s body habitus. Mediastinum: The mediastinum is normal in appearance. The heart silhouette is normal in size and morphology. Lung: There is a stable 9 mm calcified granuloma in the right apex. No sign of pleural effusion seen. No pneumothorax is identified. Bone and Soft tissue: Unremarkable for age. IMPRESSION: 1. No acute cardiopulmonary disease is seen. Dictated by Mohan Nelson MD @ 05/22/2023 9:12:27 PM Dictated by: Mohan Nelsno MD @ 05/22/2023 21:12:33 (Electronically Signed)
[2023-05-22 20:27] LABS: Basophils Absolute Auto 0.03 K/uL (0.00-0.30); Basophils Percent Auto 0.4 % (0.0-3.0); Eosinophils Absolute Auto 0.15 K/uL (0.00-0.50); Eosinophils Percent Auto 2.1 % (0.0-7.0); Hematocrit 45.9 % (37.0-53.0); Hemoglobin* 15.3 gm/dL (13.5-17.5); Immature Granulocytes Abs Auto 0.01 K/uL (0.00-0.30); Immature Granulocytes Pct Auto 0.1 %; Lymphocytes Percent Auto 15.7 % (20-44); Mean Corpuscular HGB Conc 33 gm/dL (32-36); Mean Corpuscular Hemoglobin 31 pg (26-34); Mean Corpuscular Volume 93 fL (80-100); Monocytes Percent Auto 4.5 % (0.0-11.0); Neutrophils Percent Auto 77.2 % (42.0-72.0); Platelet Count* 237 K/uL (140-440); RDW Coefficient of Variation % 13.1 % (11.5-15.5); Red Blood Count 4.96 m/uL (4.30-5.90); White Blood Count* 7.12 K/uL (4.50-11.00)
[2023-05-22 20:49] LABS: Slide Review Reflex No
[2023-05-22 20:51] LABS: Albumin* 4.6 g/dL (3.3-5.0); Chloride* 106 mmol/L (96-114)
[2023-05-22 20:52] LABS: Potassium* 4.3 mmol/L (3.6-5.1); Sodium* 140 mmol/L (135-149)
[2023-05-22 20:54] LABS: Anion Gap 10 mEq/L (7-15); Aspartate Amino Transferase* 47 U/L (12-35); Bilirubin Total* 0.3 mg/dL (0.1-1.5); Carbon Dioxide* 24 mmol/L (20-32); Creatinine* 0.9 mg/dL (0.5-1.5); Est. Creatinine Clearance* 88.75; Estimated Glomerular Filt Rate 102 ml/min; Total Protein* 7.7 g/dL (6.0-8.3)
[2023-05-22 20:55] LABS: Alanine Aminotransferase* 86 U/L (4-50); Alkaline Phosphatase* 74 U/L (40-150); Blood Urea Nitrogen* 21 mg/dL (7-30); Glucose* 125 mg/dL (60-115)
[2023-05-22 21:06] LABS: NT Pro B Type NatriureticPept* 34 pg/mL
[2023-05-22 21:08] LABS: Troponin I* < 0.01 ng/mL (0.01-0.04)
[2023-05-22 21:10] LABS: D Dimer Quantitative* < 0.27 ug/ml (0.00-0.50)
--- NOTE | 2023-05-22 22:03 | ED_ITS ---
HPI - Chest Pain General Date Seen: 05/22/23 Chief Complaint: Chest Pain Stated Complaint: tightness in chest, sweating Time Seen by Provider: 05/22/23 20:08 Source: patient Mode of arrival: ambulatory Limitations: no limitations History of Present Illness HPI narrative: Patient is a 52-year-old male who is diagnosed with COVID 1 month ago presenting to the emergency department for chest pain and diaphoresis. States the symptoms started about an hour prior to arrival. The diaphoresis has since. They still having the chest tightness on the left side of chest. States he has had these exact same symptoms a couple weeks ago and they resolved after a few days. He was seen in the emergency department at that time. States they came on suddenly any is not sure what what caused it. He does state he does not know if he took an extra dose of his amiodarone or Xarelto by accident today. Denies fevers, chills, shortness of breath, weakness, numbness, lightheadedness, dizziness, abdominal pain. No other concerns noted at this time Related Data Home Medications Medication Instructions Recorded Confirmed albuterol 04/30/22 amiodarone 200 mg tablet 200 mg PO 04/16/23 cyclobenzaprine 10 mg tablet 10 mg PO QPM 04/16/23 04/16/23 rivaroxaban 20 mg tablet (Xarelto) 20 mg PO DAILY 04/16/23 04/28/23 Allergies Allergy/AdvReac Type Severity Reaction Status Date / Time iodine Allergy Intermediate Verified 04/28/23 08:37 Review of Systems Status of ROS Reports: 10 or more systems reviewed and unremarkable except as noted in History and below [facility] Social History Smoking Status: Never smoker Do you use any of these nicotine containing products: None How often do you have a drink containing alcohol: never How often do you have six or more drinks on one occasion: Never AUDIT-C Alcohol total score: 0 Non-prescribed substance use: denies use Exam Narrative Exam Narrative: Const: Well-nourished, Well-developed, in mild distress Eyes: PERRL, no conjunctival injection, and symmetrical lids HENT: Atraumatic external nose and ears. Moist mucous membranes. Neck: Symmetric, trachea midline, No thyromegaly. CVS: RRR, No murmurs or gallops. Peripheral pulses 2+ and equal in all extremities RESP: Unlabored respiratory effort. Clear to auscultation bilaterally. GI: Nontender/Nondistended, No rebound or guarding. MSK:Extremities w/o deformity, Normal Active ROM Skin: Warm, Dry. No rashes or lesions. Neuro: Normal Muscle tone, No focal neurological deficits. Psych: Awake, Alert, & Oriented x3. Appropriate mood and affect. Const Vital Signs, click to edit/add: Vital Signs - 24 hr 05/22/23 20:06 Temperature 97.9 F Pulse Rate [Pulse Oximeter] 83 Respiratory Rate 18 Blood Pressure [Right Upper Arm] 154/92 H Pulse Oximetry 96 Oxygen Delivery Method Room Air Course Vital Signs Vital signs: Initial Vital Signs Temperature 97.9 F 05/22/23 20:06 Temperature Source Temporal Artery Scan 05/22/23 20:06 Pulse Rate 83 05/22/23 20:06 Respiratory Rate 18 05/22/23 20:06 Blood Pressure 154/92 H 05/22/23 20:06 Blood Pressure Mean 112 H 05/22/23 20:06 Blood Pressure Position Sitting 05/22/23 20:06 Pulse Oximetry 96 05/22/23 20:06 Oxygen Delivery Method Room Air 05/22/23 20:06 Vital Signs Temperature 97.9 F 05/22/23 20:06 Pulse Rate 83 05/22/23 20:06 Respiratory Rate 18 05/22/23 20:06 Blood Pressure 154/92 H 05/22/23 20:06 Pulse Oximetry 96 05/22/23 20:06 Oxygen Delivery Method Room Air 05/22/23 20:06 Temperature 97.9 F 05/22/23 20:06 Pulse Rate 83 05/22/23 20:06 Respiratory Rate 18 05/22/23 20:06 Blood Pressure 154/92 H 05/22/23 20:06 Pulse Oximetry 96 05/22/23 20:06 Oxygen Delivery Method Room Air 05/22/23 20:06 MDM - Chest Pain MDM Narrative Medical decision making narrative: Patient is a 52-year-old male presenting to the emergency department for chest pain. At this time differential includes ACS, PE, pneumonia, pneumothorax. Seems very unlikely to be aortic dissection. Will order a CBC, CMP, D-dimer, BNP, chest x-ray, EKG. Chest x-ray showed no acute abnormalities. Lab work returned showing no acute abnormalities. Will repeat troponin. D-dimer is less than 0.27 and PE is unlikely. Repeat troponin was within normal limits. At this time I am unsure what is causing his chest pain but is not appear to be cardiac or pulmonary in nature. At speaking to him again he does states he has recently started lifting and working out and wonders if he is over working himself. This could be causing some soreness in the area of his chest that he described but unable to say for certain. Patient be discharged home informed to follow-up with his primary care provider. Lab Data Labs: Lab Results 05/22/23 05/22/23 Range/Units 20:12 22:02 WBC 7.12 (4.50-11.00) K/uL RBC 4.96 (4.30-5.90) m/uL Hgb 15.3 (13.5-17.5) gm/dL Hct 45.9 (37.0-53.0) % MCV 93 (80-100) fL MCH 31 (26-34) pg MCHC 33 (32-36) gm/dL RDW Coeff of Daljit 13.1 (11.5-15.5) % Plt Count 237 (140-440) K/uL Neut % (Auto) 77.2 H (42.0-72.0) % Lymph % (Auto) 15.7 L (20-44) % [place] % (Auto) 4.5 (0.0-11.0) % Eos % (Auto) 2.1 (0.0-7.0) % Baso % (Auto) 0.4 (0.0-3.0) % Neut # (Auto) 5.50 (1.7-7.0) K/uL Lymph # (Auto) 1.10 (0.90-2.90) K/uL [place] # (Auto) 0.30 (0.00-0.90) K/UL Eos # (Auto) 0.15 (0.00-0.50) K/uL Baso # (Auto) 0.03 (0.00-0.30) K/uL Abs Immat Gran (auto) 0.01 (0.00-0.30) K/uL Imm/Tot Granulo (auto) 0.1 % D-Dimer Quant (PE/DVT) < 0.27 (0.00-0.50) ug/ml Sodium 140 (135-149) mmol/L Potassium 4.3 (3.6-5.1) mmol/L Chloride 106 (96-114) mmol/L Carbon Dioxide 24 (20-32) mmol/L Anion Gap 10 (7-15) mEq/L BUN 21 (7-30) mg/dL Creatinine 0.9 (0.5-1.5) mg/dL Estimated Creat Clear 88.75 Estimated GFR 102 ml/min Glucose 125 H (60-115) mg/dL Calcium 9.0 (8.4-10.6) mg/dL Total Bilirubin 0.3 (0.1-1.5) mg/dL AST 47 H (12-35) U/L ALT 86 H (4-50) U/L Alkaline Phosphatase 74 (40-150) U/L Troponin I < 0.01 L (0.01-0.04) ng/mL NT-Pro-B Natriuret Pep 34 pg/mL Total Protein 7.7 (6.0-8.3) g/dL Albumin 4.6 (3.3-5.0) g/dL POC Troponin I 0.00 L (0.01-0.04) ng/ml Imaging Data Chest x-ray: Radiologist's impression: 1. No acute cardiopulmonary disease is seen. Dictated by Mohan Nelson MD @ 05/22/2023 9:12:27 PM ECG Data Prior ECG tracings: available for review Interpretation: Normal sinus rhythm with a rate of 78 beats per minute, normal intervals, left axis, no ST or T-wave abnormalities. Appears similar to previous EKG on file Discharge Plan Discharge Clinical Impression: Atypical chest pain Patient Disposition: Home, Self-Care Condition: Stable Instructions: Noncardiac Chest Pain (ED) Additional Instructions: While your chest pain is not appear to be heart or lung related at this time it is not unreasonable to follow up with the primary care provider about possibly being set up with a stress test outpatient to better evaluate this. Return to the emergency department for new worsening symptoms Prescriptions: No Action cyclobenzaprine 10 mg tablet 10 mg PO QPM amiodarone 200 mg tablet 200 mg PO Xarelto 20 mg tablet 20 mg PO DAILY albuterol Follow Up/Referrals: Lupis Juan PA-C [Primary Care Provider] - Stand Alone Forms: [email or web address] Info Instructions
[2023-05-22 22:36] LABS: Troponin, Point-of-Care* 0.01 ng/ml (0.01-0.04)
[2023-05-23 00:12] LABS: NT Pro B Type NatriureticPept* 34 pg/mL; Troponin I* < 0.01 ng/mL (0.01-0.04)
== END 2023-05-22 22:46 | disposition home or self-care (01) ==
PROVIDERS: Emergency Provider Student in an Organized Health Care Education/Training Program; PCP Physician Assistant Medical
DX: R07.89 Other chest pain (principal)
CPT/HCPCS: 36415; 71046; 80053; 83880; 84484; 85025; 85379; 93005; 99283; 99284; 99285

== ENCOUNTER 2023-07-28 19:17 | Emergency (ER) | payer BC, SELFPAY ==
[2023-07-28] VITALS (19 sets, daily range): BP systolic 111–143; BP diastolic 72–84; PULSE 67–95; RESP 22; TEMP 36.7; O2SAT 90–97; BMI 45.4
--- NOTE | 2023-07-28 19:40 | XR_ITS ---
Patient: RUBY ALEMAN JR Facility:?[facility] Patient ID:?[id number] Site Patient ID:?[id number]. Site :?[id number] Study:?XRay-Chest 2 view-07/28/2023 7:52:54 PM Ordering Physician:Gigi Louis Final Report: INDICATION: Chest pain. TECHNIQUE: Two view chest. COMPARISON: May 22, 2023. FINDINGS: Clear lungs. Normal heart size and pulmonary vascularity. Normal included skeleton. IMPRESSION: Negative chest. No change. Dictated by Glenn Cai MD @ 07/28/2023 8:09:37 PM Signed by:?Glenn Cai MD @07/28/2023 8:09:37 PM (Electronic Signature)
--- NOTE | 2023-07-28 19:44 | ED.ARRPALP ---
HPI - Arrhythmia/Palpitations General Date Seen: 07/28/23 Chief Complaint: Arrhythmia/Palpitations Stated Complaint: Thinks afib again Time Seen by Provider: 07/28/23 19:20 Source: patient Mode of arrival: ambulatory Limitations: no limitations History of Present Illness HPI narrative: Patient is a 52-year-old male with a history of AFib currently on Xarelto and amiodarone presenting to emergency department for palpitations. He states he feels like his AFib is acting up again. States he has been feeling more tired in short of breath today. Last time he was in AFib he states was in March. He was cardioverted at that time. Denies having the shortness of breath associated with it before. Is not aware of any sick contacts. Also states he has been having chest pain with this is the same chest pain he has been having now for 2 months. Denies fevers, chills, abdominal pain, diarrhea, constipation, headache, vision changes, lightheadedness, dizziness. States he was at work when he noticed the symptoms started. Eight shortly prior to arrival and has had no issues with p.o. intake. No history of blood clots her tetanus any recent surgeries. Related Data Home Medications Medication Instructions Recorded Confirmed albuterol 04/30/22 amiodarone 200 mg tablet 200 mg PO 04/16/23 cyclobenzaprine 10 mg tablet 10 mg PO QPM 04/16/23 04/16/23 rivaroxaban 20 mg tablet (Xarelto) 20 mg PO DAILY 04/16/23 04/28/23 Allergies Allergy/AdvReac Type Severity Reaction Status Date / Time iodine Allergy Intermediate Verified 04/28/23 08:37 Review of Systems Status of ROS: Reports: 10 or more systems reviewed and unremarkable except as noted in History and below [facility] Social History Smoking Status: Never smoker Do you use any of these nicotine containing products: None How often do you have a drink containing alcohol: never How often do you have six or more drinks on one occasion: Never AUDIT-C Alcohol total score: 0 Non-prescribed substance use: denies use Exam Narrative: Exam Narrative: Const: Well-nourished, Well-developed, in mild distress Eyes: PERRL, no conjunctival injection, and symmetrical lids HENT: Atraumatic external nose and ears. Moist mucous membranes. Neck: Symmetric, trachea midline, No thyromegaly. CVS: Irregular rhythm with a normal rate, No murmurs or gallops. Peripheral pulses 2+ and equal in all extremities RESP: Unlabored respiratory effort. Clear to auscultation bilaterally. GI: Nontender/Nondistended, No rebound or guarding. MSK:Extremities w/o deformity, Normal Active ROM Skin: Warm, Dry. No rashes or lesions. Neuro: Normal Muscle tone, No focal neurological deficits. Psych: Awake, Alert, & Oriented x3. Appropriate mood and affect. Const: Vital Signs, click to edit/add: Vital Signs - 24 hr 07/28/23 19:25 Temperature 98.1 F Pulse Rate [Pulse Oximeter] 95 Respiratory Rate 22 Blood Pressure [Ri ght Upper Arm] 143/84 H Pulse Oximetry 97 Oxygen Delivery Me thod Room Air Course Vital Signs Vital signs: Initial Vital Signs Temperature 98.1 F 07/28/23 19:25 Temperature Source Temporal Artery Scan 07/28/23 19:25 Pulse Rate 95 07/28/23 19:25 Respiratory Rate 22 07/28/23 19:25 Blood Pressure 143/84 H 07/28/23 19:25 Blood Pressure Mean 103 07/28/23 19:25 Blood Pressure Position Sitting 07/28/23 19:25 Pulse Oximetry 97 07/28/23 19:25 Oxygen Delivery Method Room Air 07/28/23 19:25 Vital Signs Temperature 98.1 F 07/28/23 19:25 Pulse Rate 95 07/28/23 19:25 Respiratory Rate 22 07/28/23 19:25 Blood Pressure 143/84 H 07/28/23 19:25 Pulse Oximetry 97 07/28/23 19:25 Oxygen Delivery Method Room Air 07/28/23 19:25 Temperature 98.1 F 07/28/23 19:25 Pulse Rate 95 07/28/23 19:25 Respiratory Rate 22 07/28/23 19:25 Blood Pressure 143/84 H 07/28/23 19:25 Pulse Oximetry 97 07/28/23 19:25 Oxygen Delivery Method Room Air 07/28/23 19:25 MDM - Arrhythmia/Palpitations MDM Narrative Medical decision making narrative: Patient is a 52-year-old male presenting for chest pain and shortness of breath. He is concerned he is back in AFib. Chest pain has been consistent now for a month he says it is not any new. The shortness of breath is new though. He is on a blood thinner but I will check a D-dimer to make sure there is not a PE. Will also order chest x-ray, CBC, COVID/flu/RSV, BMP and troponin. EKG shows he is now in AFib again. Lab work all returned showing no concerning. Since pain has last several months I do not believe it is necessary to repeat the troponin. COVID/flu/RSV is negative. He is now asymptomatic and chest x-ray showed no concerning abnormalities as reviewed by myself and the radiologist. I spoke to Dr. Land of [facility]. He recommends sting on his current medication following up with Cardiology as previously they talked about doing an ablation on him. He continues to be asymptomatic and his heart rate has been below 100 almost his entire time here. Is now in the 60s. Patient will be discharged home to follow-up with cardiology. He is agreeable to this plan. Lab Data Labs: Lab Results 07/28/23 Range/Units 19:38 WBC 7.24 (4.50-11.00) K/uL RBC 5.06 (4.30-5.90) m/uL Hgb 15.6 (13.5-17.5) gm/dL Hct 47.5 (37.0-53.0) % MCV 94 (80-100) fL MCH 31 (26-34) pg MCHC 33 (32-36) gm/dL RDW Coeff of Daljit 13.3 (11.5-15.5) % Plt Count 233 (140-440) K/uL Neut % (Auto) 66.7 (42.0-72.0) % Lymph % (Auto) 25.3 (20-44) % Wharton % (Auto) 5.7 (0.0-11.0) % Eos % (Auto) 1.9 (0.0-7.0) % Baso % (Auto) 0.3 (0.0-3.0) % Neut # (Auto) 4.83 (1.7-7.0) K/uL Lymph # (Auto) 1.83 (0.90-2.90) K/uL Wharton # (Auto) 0.40 (0.00-0.90) K/UL Eos # (Auto) 0.14 (0.00-0.50) K/uL Baso # (Auto) 0.02 (0.00-0.30) K/uL Abs Immat Gran (auto) 0.01 (0.00-0.30) K/uL Imm/Tot Granulo (auto) 0.1 % D-Dimer Quant (PE/DVT) < 0.27 (0.00-0.50) ug/ml Sodium 138 (135-149) mmol/L Potassium 3.7 (3.6-5.1) mmol/L Chloride 105 (96-114) mmol/L Carbon Dioxide 27 (20-32) mmol/L Anion Gap 6 L (7-15) mEq/L BUN 21 (7-30) mg/dL Creatinine 1.1 (0.5-1.5) mg/dL Estimated Creat Clear 72.61 Estimated GFR 80 ml/min Glucose 143 H (60-115) mg/dL Calcium 9.0 (8.4-10.6) mg/dL SARS-CoV-2 (PCR) Negative SARS-CoV-2 (Negative) Influenza Type A (PCR) Negative PCR FLU A (Negative) Influenza Type B (PCR) Negative PCR FLU B (Negative) RSV (PCR) Negative PCR RSV (Negative) POC Troponin I 0.00 L (0.01-0.04) ng/ml Imaging Data Chest x-ray: Radiologist's impression: Negative chest. No change. Dictated by Glenn Cai MD @ 07/28/2023 8:09:37 PM ECG Data Attestation: I personally reviewed and interpreted this ECG as follows: Prior ECG tracings: available for review Interpretation: AFib with a rate of 103 beats per minute, left axis deviation, left fascicular block, now ST T wave abnormalities. Appears similar previous EKG on file other than the new AFib Discharge Plan Discharge Clinical Impression: Atrial fibrillation Qualifiers: Atrial fibrillation type: paroxysmal Qualified Code(s): I48.0 - Paroxysmal atrial fibrillation Patient Disposition: Home, Self-Care Condition: Improved Instructions: A-fib (Atrial Fibrillation) (ED) Additional Instructions: Follow-up with the patrol conductor about a possible ablation. Make sure to continue taking medication. Return for new or worsening symptoms. Prescriptions: No Action cyclobenzaprine 10 mg tablet 10 mg PO QPM amiodarone 200 mg tablet 200 mg PO Xarelto 20 mg tablet 20 mg PO DAILY albuterol Follow Up/Referrals: Lupis Juan PA-C [Primary Care Provider] - Stand Alone Forms: [employer] Info Instructions
[2023-07-28 20:02] LABS: Basophils Absolute Auto 0.02 K/uL (0.00-0.30); Basophils Percent Auto 0.3 % (0.0-3.0); Eosinophils Absolute Auto 0.14 K/uL (0.00-0.50); Eosinophils Percent Auto 1.9 % (0.0-7.0); Hematocrit 47.5 % (37.0-53.0); Hemoglobin* 15.6 gm/dL (13.5-17.5); Immature Granulocytes Abs Auto 0.01 K/uL (0.00-0.30); Immature Granulocytes Pct Auto 0.1 %; Lymphocytes Absolute Auto 1.83 K/uL (0.90-2.90); Lymphocytes Percent Auto 25.3 % (20-44); Mean Corpuscular HGB Conc 33 gm/dL (32-36); Mean Corpuscular Hemoglobin 31 pg (26-34); Mean Corpuscular Volume 94 fL (80-100); Monocytes Percent Auto 5.7 % (0.0-11.0); Neutrophils Absolute Auto 4.83 K/uL (1.7-7.0); Neutrophils Percent Auto 66.7 % (42.0-72.0); Platelet Count* 233 K/uL (140-440); RDW Coefficient of Variation % 13.3 % (11.5-15.5); Red Blood Count 5.06 m/uL (4.30-5.90); White Blood Count* 7.24 K/uL (4.50-11.00)
[2023-07-28 20:05] LABS: Slide Review Reflex No
[2023-07-28 20:26] LABS: Chloride* 105 mmol/L (96-114); Sodium* 138 mmol/L (135-149)
[2023-07-28 20:27] LABS: Potassium* 3.7 mmol/L (3.6-5.1)
[2023-07-28 20:29] LABS: Anion Gap 6 mEq/L (7-15); Carbon Dioxide* 27 mmol/L (20-32); Creatinine* 1.1 mg/dL (0.5-1.5); Est. Creatinine Clearance* 72.61; Estimated Glomerular Filt Rate 80 ml/min
[2023-07-28 20:30] LABS: Blood Urea Nitrogen* 21 mg/dL (7-30); Glucose* 143 mg/dL (60-115)
[2023-07-28 20:38] LABS: PCR FLU A Negative PCR FLU A (Negative); PCR FLU B Negative PCR FLU B (Negative); PCR RSV Negative PCR RSV (Negative); SARS PCR* Negative SARS-CoV-2 (Negative)
[2023-07-28 21:23] LABS: D Dimer Quantitative* < 0.27 ug/ml (0.00-0.50)
== END 2023-07-28 22:00 | disposition home or self-care (01) ==
PROVIDERS: Emergency Provider Student in an Organized Health Care Education/Training Program; PCP Physician Assistant Medical
DX: I48.0 Paroxysmal atrial fibrillation (principal)
CPT/HCPCS: 36415; 71046; 80048; 84484; 85025; 85379; 87631; 93005; 99283; 99284

== ENCOUNTER 2024-07-12 16:01 | Emergency (ER) | payer BC, SELFPAY ==
--- OUTSIDE RECORDS SUMMARY | 2024-07-12 16:02 | XMS_ITS | Encounter Summary ---
Author Organization [place] Address [address] [place] [address] Care Team Providers Care Audit Lead Name Role Phone Jaycee Patino APRN TUTORING ASSISTANT Primary Care Provide r Jaycee Patino APRN, CNP Unavailable [phone] Modesta Guillen MD Unavailable [phone] Reji Max MD Unavailable saharaJaycee vides MD Unavailable [phone] [facility] Unavailable [phone] Modesta Guillen MD Unavailable [phone] Julissa Alvarenga MD Primary Care Provider [phone] Julissa Alvarenga MD Unavailable [phone] Encounter Details Date Type Department Care Team (Late st Contact Info) Description 07/25/2022 [facility] [place] [address] [facility] [address] [place] [address] Modesta Guillen MD ORTHOPAEDIC SURGERY [address] [address] Social History Tobacco Use Types Packs/Day Years Used Date Smoking Tobacco: Never Smokeless Tobacco: Never Alcohol Use Standard Drinks/Week Comments Yes 0 (1 standard drink = 0.6 oz pur e alcohol) maybe 1 a month PHQ-2 Answer Date Recorded PHQ-2 Score 2 06/03/2022 Sex and Gender Information Value Date Recorded Sex Assigned at Not on file Legal Sex Male 11:54 AM CDT Gender Identity Not on file Sexual Orientation Not on file COVID-19 Exposure Response Date Recorded In the last 10 days, have yo u been in contact with someone who was confirmed or suspected to have Coronavirus/COVID-19? No / Unsure 07/08/2022 1:12 PM POST CLOSER documented as of this encounter Plan of Treatment Not on file documented as of this encounter Visit Diagnoses Not on filedocumented in this encounter Additional Health Concerns Assessment Noted Time PHQ-9 Depression Total Score: 5 06/04/19 8:18 AM POST CLOSER documented as of this encounter Care Teams Audit Lead Relationship Specialty Start Date End Date Jaycee Patino APRN TUTORING ASSISTANT [address] [place] [address] PCP - General Family Medicine 05/31/22 12/08/23 Julissa Alvarenga MD [address] [place] [address] PCP - General Family Medicine 12/09/23 Jaycee Patino APRN TUTORING ASSISTANT [address] [place] [address] Assigned PCP 06/15/22 09/20/22 Modesta Guillen MD ORTHOPAEDIC SURGERY [facility][note 3][address] [address] Assigned Musculoskeletal Provider 07/13/22 06/11/23 Reji Max MD [address] [place] [address] Assigned Surgical Provider 07/13/22 Jaycee Ken MD [address] [place] [address] Assigned PCP 09/21/22 06/11/23 [facility] [address] [place] [address] Assigned PCP 06/12/23 01/08/24 Modesta Guillen MD ORTHOPAEDIC SURGERY [facility][note 3][address] [address] Assigned Musculoskeletal Provider 06/20/23 01/08/24 Julissa Alvarenga MD [address] [place] [address] Assigned PCP 01/09/24 documented as of this encounter
--- OUTSIDE RECORDS SUMMARY | 2024-07-12 16:02 | XMS_ITS | Encounter Summary ---
Author Organization [place] Address [address] [place] [address] Care Team Providers Care Word Processing Specialist Name Role Phone Jaycee Patino APRN [facility] Primary Care Provide r Modesta Guillen MD Unavailable [phone] Reji Max MD Unavailable [facility] Unavailable [phone] [facility] Unavailable [phone] Modesta Guillen MD Unavailable [phone] Julissa Alvarenga MD Primary Care Provider [phone] Julissa Alvarenga MD Unavailable [phone] Encounter Details Date Type Department Care Team (Late st Contact Info) Description 02/25/2023 [facility] [place] [facility] [facility] [address] [place] [address] Dayami Calloway, NIKOLAS Social History Tobacco Use Types Packs/Day Years Used Date Smoking Tobacco: Never Smokeless Tobacco: Never Alcohol Use Standard Drinks/Week Comments Yes 0 (1 standard drink = 0.6 oz pur e alcohol) maybe 1 a month PHQ-2 Answer Date Recorded PHQ-2 Score 2 06/03/2022 Adolescent Education Answer Date Record ed Getting School Help Needed Not on file 02/08 Sex and Gender Information Value Date Recorded Sex Assigned at Not on file Legal Sex Male 11:54 AM CDT Gender Identity Not on file Sexual Orientation Not on file documented as of this encounter Plan of Treatment Not on file documented as of this encounter Visit Diagnoses Not on filedocumented in this encounter Additional Health Concerns Assessment Noted Time PHQ-9 Depression Total Score: 5 06/04/19 23 8:18 AM BENCH INSPECTOR documented as of this encounter Care Teams Word Processing Specialist Relationship Specialty Start Date End Date Jaycee Patino APRN CNP [address] [place] [address] PCP - General Family Medicine 05/31/22 12/08/23 Julissa Alvarenga MD [address] [place] [address] PCP - General Family Medicine 12/09/23 Modesta Guillen MD ORTHOPAEDIC SURGERY [address] [place] [address] Assigned Musculoskeletal Provider 07/13/22 06/11/23 [place] [address] [place] [address] Assigned Surgical Provider 07/13/22 Jaycee Ken MD [address] [place] [address] Assigned PCP 09/21/22 06/11/23 [facility] [address] [place] [address] Assigned PCP 06/12/23 01/08/24 Modesta Guillen MD ORTHOPAEDIC SURGERY [address] [place] [address] Assigned Musculoskeletal Provider 06/20/23 01/08/24 Julissa Alvarenga MD [address] [address] Assigned PCP 01/09/24 documented as of this encounter
--- OUTSIDE RECORDS SUMMARY | 2024-07-12 16:02 | XMS_ITS | Encounter Summary ---
Author Organization [place] Address [address] [place] [address] Care Team Providers Care Edge Bander Operator Name Role Phone Jaycee Patino APRN CREDIT SUPPORT COUNSELOR Primary Care Provide r Jaycee Patino APRN, CNP Unavailable [phone] Modesta Guillen MD Unavailable [phone] Reji Max MD Unavailable Jaycee Ken MD Unavailable [phone] [facility] Unavailable [phone] Modesta Guillen MD Unavailable [phone] Julissa Alvarenga MD Primary Care Provider [phone] Julissa Alvarenga MD Unavailable [phone] Encounter Details Date Type Department Care Team (Late st Contact Info) Description 07/25/2022 [facility] [place] [facility] [address] [place] [address] Jaycee Ken MD [address] [place] [address] Social History Tobacco Use Types Packs/Day Years [...] Coronavirus/COVID-19? No / Unsure 07/08/2022 1:12 PM SECURITIES TELLER documented as of this encounter Plan of Treatment Not on file documented as of this encounter Visit Diagnoses Not on filedocumented in this encounter Additional Health Concerns Assessment Noted Time PHQ-9 Depression Total Score: 5 06/04/19 8:18 AM SECURITIES TELLER documented as of this encounter Care Teams Edge Bander Operator Relationship Specialty Start Date End Date Jaycee Patino APRN CREDIT SUPPORT COUNSELOR [address] [place] [address] PCP - General Family Medicine 05/31/22 12/08/23 Julissa Alvarenga MD [address] [place] [address] PCP - General Family Medicine 12/09/23 Jaycee Patino APRN CREDIT SUPPORT COUNSELOR [address] [place] [address] Assigned PCP 06/15/22 09/20/22 Modesta Guillen MD ORTHOPAEDIC SURGERY [facility] [address] Assigned Musculoskeletal Provider 07/13/22 06/11/23 Reji Max MD [address] [address] Assigned Surgical Provider 07/13/22 Jaycee Ken MD [address] [place] [address] Assigned PCP 09/21/22 06/11/23 [facility] [address] [place] [address] Assigned PCP 06/12/23 01/08/24 Modesta Guillen MD ORTHOPAEDIC SURGERY [facility] [address] Assigned Musculoskeletal Provider 06/20/23 01/08/24 Julissa Alvarenga MD [address] [place] [address] Assigned PCP 01/09/24 documented as of this encounter
--- OUTSIDE RECORDS SUMMARY | 2024-07-12 16:02 | XMS_ITS | Encounter Summary ---
Author Organization [place] Address [address] [place] [address] Care Team Providers Care Ship Captain Name Role Phone Jaycee Patino APRN HOUSE NURSE Primary Care Provide r Jaycee Patino APRN, CNP Unavailable [phone] Modesta Guillen MD Unavailable [phone] Reji Max MD Unavailable [facility] Unavailable [phone] [facility] Unavailable [phone] Modesta Guillen MD Unavailable [phone] Julissa Alvarenga MD Primary Care Provider [phone] Julissa Alvarenga MD Unavailable [phone] Encounter Details Date Type Department Care Team (Late st Contact Info) Description 07/04/2022 [facility] [place] [facility] [place] [address] [place] [address] Flor Verma Social History Tobacco Use Types Packs/Day Years [...] suspected to have Coronavirus/COVID-19? No / Unsure 07/04/2022 10:58 AM HVAC SERVICE TECHNICIAN documented as of this encounter Plan of Treatment Not on file documented as of this encounter Visit Diagnoses Not on filedocumented in this encounter Additional Health Concerns Assessment Noted Time PHQ-9 Depression Total Score: 5 06/04/19 8:18 AM HVAC SERVICE TECHNICIAN documented as of this encounter Care Teams Ship Captain Relationship Specialty Start Date End Date Jaycee Patino APRN HOUSE NURSE [address] [place] [address] PCP - General Family Medicine 05/31/22 12/08/23 Julissa Alvarenga MD [address] [place] [address] PCP - General Family Medicine 12/09/23 Jaycee Patino APRN HOUSE NURSE [address] [facility] [address] Assigned PCP 06/15/22 09/20/22 Modesta Guillen MD ORTHOPAEDIC SURGERY Formerly named [facility] [address] [address] Assigned Musculoskeletal Provider 07/13/22 06/11/23 Reji Max MD [address] [place], [place] [address] Assigned Surgical Provider 07/13/22 Jaycee Ken MD [address] [place] [address] Assigned PCP 09/21/22 06/11/23 [facility] [address] [id number] Assigned PCP 06/12/23 01/08/24 Modesta Guillen MD ORTHOPAEDIC SURGERY [address] [place] [address] Assigned Musculoskeletal Provider 06/20/23 01/08/24 Julissa Alvarenga MD [address] [address] Assigned PCP 01/09/24 documented as of this encounter
--- OUTSIDE RECORDS SUMMARY | 2024-07-12 16:03 | XMS_ITS | Clinical Summary ---
Author Organization [facility] Address [address] [place] [address] Care Team Providers Care Librarian Specialist Name Role Phone Julissa Alvarenga MD Primary Care Provider Julissa Alvarenga MD Unavailable [phone] Allergies Active Allergy Reactions Criticality Noted Date Comments Iodine Hives High 06/30/2007 while in surgery as a child got hives from this doesn't remember the exact name for IODINE Medications albuterol (PROAIR HFA/PROVENTIL HFA/VENTOLIN HFA) 108 (90 Base) MCG/ACT inhalerIndications :SOB (shortness of breath) Inhale 2 puffs into the lungs as needed for shortness of breath or wheezing 18 g 3 Active amiodarone (PACERONE) 200 MG tablet Take 200 mg by mouth daily Active XARELTO ANTICOAGULANT 20 MG TABS tablet take 1 tablet by mouth every day with evening meal Active Active Problems Problem Noted Date Diagnosed Date Prediabetes 03/12/2024 Paroxysmal atrial fibrillation 05/22/2023 Bilateral lower abdominal pain 06/06/2022 Chronic bilateral low back pain without sciatica 06/06/2022 Sleep difficulties 06/06/2022 Morbid obesity 06/03/2022 Resolved Problems Problem Noted Date Diagnosed Date Resolved Date Benign prostatic hyperplasia 03/22/2013 06/03/2022 Degenerative arthritis of left knee 08/12/2008 06/03/2022 Encounters Date Type Department Care Team Description 06/16/2024 MyC Refill [address] [address] Julissa Alvarenga MD Refill Request (REFILLS THRU CARDIOLOGY - ... from Last 3 Months Immunizations Name Administration Dates Next Due COVID-19 MONOVALENT 12+ (Pfizer) 05/17/2021 Flu, Unspecified 06/03/2022 Influenza Vaccine, 6+MO IM ( QUADRIVALENT W/PRESERVATIVES) 02/29/2020 Influenza,INJ,MDCK,PF,Quad >6mo(Flucelvax) 06/03 MMR 01/02/2016 TD,PF 7+ (Tenivac) 12/19/2004 TDAP Vaccine (Adacel) 01/02/2016 Family History Medical History Relation Comments No Known Problems Brother Cerebrovascular Disease Father Diabetes Father Heart Disease Father Morbid Obesity Father No Known Problems Maternal Grandfather No Known Problems Maternal Grandmother Heart Disease Mother Hypertension Mother Diabetes Paternal Grandfather Heart Disease Sister Relation Status Comments Brother Alive Father Maternal Grandfather Maternal Grandmother Mother Alive Paternal Grandfather Paternal Grandmother Sister Alive Social History Tobacco Use Types Packs/Day Years Used Date Smoking Tobacco: Never Smokeless Tobacco: Never Tobacco Cessation:Counseling Given: Yes Alcohol Use Standard Drinks/Week Comments Yes 0 (1 standard drink = 0.6 oz pur e alcohol) maybe 1 a month Social Connection and Isolation Panel [NHANES] A nswer Date Recorded Frequency of Communication with Friends and Fami ly Not on file 03/11/2024 How often do you get together with friends or re latives? Once a week 03/11/2024 Attends Gnosticism Services Not on file 03/11 Active Member of Clubs or Organizations Not on f ile 03/11/2024 Attends Club or Organization Meetings Not on andrew e 03/11/2024 Marital Status Not on file 03/11/2024 PHQ-2 Answer Date Recorded PHQ-2 Score 0 03/11/2024 [facility] [place] of Occupat ional Health - Occupational Stress Questionnaire Answer Date Recorded Do you feel stress - tense, restless, nervous, or anxious, or unable to sleep at night because your mind is troubled all the time - these days? Not at all 03/11/2024 Exercise Vital Sign Answer Date Recorde d On average, how many days pe r week do you engage in moderate to strenuous exercise (like a brisk walk)? 3 days 03/11/2024 On average, how many minutes do you engage in exercise at this level? 30 min 03/11/2024 Adolescent Education Answer Date Record ed Getting School Help Needed Not on file 02/08 Food Insecurity Answer Date Recorded Within the past 12 months, d id you worry that your food would run out before you got money to buy more? No 03/11/2024 Within the past 12 months, d id the food you bought just not last and you didn t have money to get more? No 03/11/2024 Housing Stability Answer Date Recorded Do you have housing? (Tj waller is defined as stable permanent housing and does not include staying ouside in a car, in a tent, in an abandoned building, in an overnight group home, or couch-surfing.) Yes 03/11/2024 Are you worried about losing your housing? No 03/11/2024 Financial Resource Strain Answer Date R ecorded Within the past 12 months, h ave you or your family members you live with been unable to get utilities (heat, electricity) when it was really needed? No 03/11/2024 Transportation Needs Answer Date Record ed Within the past 12 months, h as lack of transportation kept you from medical appointments, getting your medicines, non-medical meetings or appointments, work, or from getting things that you need? No 03/11/2024 Sex and Gender Information Value Date Recorded Sex Assigned at Not on file Legal Sex Male 11:54 AM CDT Gender Identity Not on file Sexual Orientation Not on file Last Filed Vital Signs Vital Sign Reading Time Taken Comments Blood Pressure 142/80 03/11/2024 11:33 AM CDT Pulse 65 03/11/2024 11:15 AM CDT Temperature 36.4 C (97.5 F) 05/09/2022 11:43 AM HEALTH ANALYST Respiratory Rate 16 07/09/2022 12:20 PM HEALTH ANALYST Oxygen Saturation 96% 03/11/2024 11:15 AM CDT Inhaled Oxygen Concentration - - Weight 133.8 kg (295 lb) 03/11/2024 11:15 AM CDT Height 173 cm (5' 8.11) 03/11/2024 11:15 AM CDT Body Mass Index 44.71 03/11/2024 11:15 AM CDT Plan of Treatment Health Maintenance Due Date Last Done Comments ADVANCE CARE PLANNING 1969 ANNUAL REVIEW OF HM ORDERS 1969 CT COLONOGRAPHY 1969 FIT 1969 FLEX SIG 1969 HIV SCREENING 1984 HEPATITIS B IMMUNIZATION (1 of 3 - 19+ 3-dose series) 1988 Pneumococcal Vaccine: 50+ Years (1 of 2 - PCV) 1988 ZOSTER IMMUNIZATION (1 of 2) 08/15/2019 COVID-19 Vaccine ( - season) 2024 02/15/2022, 05/17/2021, 10/20/2020, Additional history exists INFLUENZA VACCINE (#1) 2024 , 06/03/2022, 02/29/2020 PHQ-2 (once per calendar year) 2024 03/11/2024, 06/03/2022, 06/03/2022, Additional history exists YEARLY PREVENTIVE VISIT 03/11/2025 03/11/2024 sDNA (Cologuard) 06/17/2025 06/17/2022, 06/17/2022 DTAP/TDAP/TD IMMUNIZATION (2 - Td or Tdap) 01/01/2026 01/02/2016, 12/19/2004 GLUCOSE 03/11/2027 03/11/2024, 05/20, 03/07/2020 LIPID 03/11/2029 03/11/2024, 09/26/2020 COLONOSCOPY 08/31/2033 09/01/2023 COLORECTAL CANCER SCREENING 08/31/2033 HEPATITIS C SCREENING Completed 02/15/2022, 022 HPV IMMUNIZATION Aged Out No longer e ligible based on patient's age to complete this topic MENINGITIS IMMUNIZATION Aged Out No l onger eligible based on patient's age to complete this topic Procedures Procedure Name Priority Date/Time Associated Diagnosis Comments LIPID PROFILE (RMG) Routine 03/11/2024 1 1:45 AM CDT Routine general medical examination at a health care facility BASIC METABOLIC PANEL Routine 03/11/2024 11:41 AM CDT Routine general medical examination at a health care facility COLOGUARD(EXACT SCIENCES) Routine 06/17/2022 12:00 PM HEALTH ANALYST Special screening for malignant neoplasms, colon HEPATITIS C (HIM EXTERNAL RESULT) Routine 02/15/2022 2:40 PM CDT from Last 3 Months or Most Recently Relevant to Health Maintenance Results * (ABNORMAL) Lipid Profile (RMG) (03/11/2024 11:45 AM CDT) Pathologist [facility] [place] Cholesterol 229(A) 100 - 199 mg/dL [facility] HDL 42 >=40 mg/dL [facility] Triglycerides 121 0 - 149 mg/dL [facility] LDL CALCULATED (RMG) 163(A) 0 - 130 mg/dL [facility] Patient Fasting? Yes [facility] Blood 03/11/2024 11:4 5 AM CDT Julissa Alvarenga MD LAB - NON-[facility] BLOOD LABS F inal Result [facility] [address] [id number] * (ABNORMAL) Basic metabolic panel (03/11/2024 11:41 AM CDT) Pathologist [facility] [place] Sodium 141 135 - 145 mmol/L 03/11/2024 1:58 PM CDT LABORATORY Potassium 4.1 3.4 - 5.3 mmol/L 03/11/2024 1:58 PM CDT LABORATORY Chloride 104 98 - 107 mmol/L 03/11/2024 1:58 PM CDT LABORATORY Carbon Dioxide (CO2) 27 22 - 29 mmol/L 03/11/2024 1:58 PM CDT LABORATORY Anion Gap 10 7 - 15 mmol/L 03/11/2024 1:58 PM CDT LABORATORY Urea Nitrogen 14.5 6.0 - 20.0 mg/dL 03/11/2024 1:58 PM CDT LABORATORY Creatinine 1.10 0.67 - 1.17 mg/dL 03/11/2024 1:58 PM CDT LABORATORY GFR Estimate 80 >60 mL/min/1.7 3m2 03/11/2024 1:58 PM CDT LABORATORY Comment:eGFR calculated usin 2020 CKD-EPI equation. Calcium 9.1 8.8 - 10.4 mg/dL 03/11/2024 1:58 PM CDT LABORATORY Comment:Reference intervals for this test were updated on 12/02/2023 to reflect our healthy population more accurately. There may be differences in the flagging of prior results with similar values performed with this method. Those prior results can be interpreted in the context of the updated reference intervals. Glucose 109(H) 70 - 99 mg/dL 03/11/2024 1:58 PM CDT LABORATORY Patient Fasting > 8hrs? Yes 03/11/2024 1:58 PM CDT LABORATORY Blood BLOOD SPECIMEN / Unknown Venipuncture / Unknown 03/11/2024 11:41 AM CDT 03/11/2024 11:41 AM CDT Julissa Alvarenga MD LAB - BLOOD ORDERABLES Final Result LABORATORY [facility] [address], [address] [place] [address], [facility] [phone] * COLOGUARD([employer]) (06/17/2022 12:00 PM HEALTH ANALYST) COLOGUARD-ABSTRACT Negative Negative 2022 3:03 AM HEALTH ANALYST [facility] (CLIA #:[id number]) Comment: NEGATIVE TEST RESULT. A negative Cologuard result indicates a low likelihood that a colorectal cancer (CRC) or advanced adenoma (adenomatous polyps with more advanced pre-malignant features) is present. The chance that a person with a negative Cologuard test has a colorectal cancer is less than 1 in 1500 (negative predictive value >99.9%) or has an advanced adenoma is less than 5.3% (negative predictive value 94.7%). These data are based on a prospective cross-sectional study of 10,000 individuals at average risk for colorectal cancer who were screened with both Cologuard and colonoscopy. (Beka Moreno, N Engl J Med 2014;370(14):8669-7648) The normal value (reference range) for this assay is negative. COLOGUARD RE-SCREENING RECOMMENDATION: Periodic colorectal cancer screening is an important part of preventive healthcare for asymptomatic individuals at average risk for colorectal cancer. Following a negative Cologuard result, the [place] [employer] Society and U.S. Multi-Society Task Force screening guidelines recommend a Cologuard re-screening interval of 3 years. References: [place] [employer] Guideline for Colorectal Cancer Screening: https://www.cancer.org/cancer/wiarj-oxjdeq-jsbgjr/augtfjqgf-eyksmilis-fvreftt/ac s-rec ommendations.html.; Bert DK, Yasmine CR, Marley RuizK, Colorectal Cancer Screening: Recommendations for Physicians and Patients from the U.S. Multi-Society Task Force on Colorectal Cancer Screening , Am J Gastroenterology 2017; 112:6687-8549. TEST DESCRIPTION: Composite algorithmic analysis of stool DNA-biomarkers with hemoglobin immunoassay. Quantitative values of individual biomarkers are not reportable and are not associated with individual biomarker result reference ranges. Cologuard is intended for colorectal cancer screening of adults of either sex, 45 years or older, who are at average-risk for colorectal cancer (CRC). Cologuard has been approved for use by the U.S. FDA. The performance of Cologuard was established in a cross sectional study of average-risk adults aged 50-84. Cologuard performance in patients ages 45 to 49 years was estimated by sub-group analysis of near-age groups. Colonoscopies performed for a positive result may find as the most clinically significant lesion: colorectal cancer [4.0%], advanced adenoma (including sessile serrated polyps greater than or equal to 1cm diameter) [20%] or non- advanced adenoma [31%]; or no colorectal neoplasia [45%]. These estimates are derived from a prospective cross-sectional screening study of 10,000 individuals at average risk for colorectal cancer who were screened with both Cologuard and colonoscopy. (Beka Moreno, N Engl J Med 2014;370(14):5194-5600.) Cologuard may produce a false negative or false positive result (no colorectal cancer or precancerous polyp present at colonoscopy follow up). A negative Cologuard test result does not guarantee the absence of CRC or advanced adenoma (pre-cancer). The current Cologuard screening interval is every 3 years. ([place] [employer] Society and U.S. Multi-Society Task Force). Cologuard performance data in a 10,000 patient pivotal study using colonoscopy as the reference method can be accessed at the following location: www.[employer]Couple/results. Additional description of the Cologuard test process, warnings and precautions can be found at www.cologuard.com. Stool specimen (specimen) 06/17/2022 12:00 PM HEALTH ANALYST 06/19/2022 10:25 AM HEALTH ANALYST Jaycee Patino APRN CATHETERIZATION LABORATORY TECHNICIAN LABORATORY Final Result Performing Organization Address [facility] Co de Phone Number [facility] [address] [phone] [facility] (CLIA #:[id number]) [address] [place] [address] * Hepatitis C (HIM External Result) (02/15/2022 2:40 PM CDT) Hep C HIM See Scanned Document [facility] Comment:non reactive 02/15/2022 2:40 PM CDT Patient Reported LAB - HIM EXTERNAL RESULT Final Result Performing Organization Address [facility] Co de Phone Number [facility] [address] [address], [facility] [phone] from Last 3 Months or Most Recently Relevant to Health Maintenance Insurance BCBS OUT OF STATE BC OUT OF STATE Care Teams Librarian Specialist Relationship Specialty Start Date End Date Julissa Alvarenga MD [address] [place] [address] PCP - General Family Medicine 12/09/23 Julissa Alvarenga MD [address] [place] [address] Assigned PCP 01/09/24
--- OUTSIDE RECORDS SUMMARY | 2024-07-12 16:03 | XMS_ITS | Encounter Summary ---
Author Organization [facility] Address [address] [place] [address] Care Team Providers Care Change House Attendant Name Role Phone Jaycee Patino APRN, CNP Primary Care Provide r Jaycee Patino APRN, CNP Unavailable [phone] Modesta Guillen MD Unavailable [phone] Reji Max MD Unavailable Jaycee Ken MD Unavailable [phone] [facility] Unavailable Modesta Guillen MD Unavailable [phone] Julissa Alvarenga MD Primary Care Provider [phone] Julissa Alvarenga MD Unavailable [phone] Reason for Visit * Reason Onset Date Comments Refill Request 07/01/2022 Encounter Details Date Type Department Care Team (Late st Contact Info) Description 07/01/2022 MyC Refill [facility] [address] [place] [phone] Jaycee Patino APRN SENIOR INTEGRATION DEVELOPER [address] [place] [address] Refill Request Social History Tobacco Use Types Packs/Day Years [...] Coronavirus/COVID-19? No / Unsure 07/04/2022 10:58 AM SHUTTLE BUS DRIVER documented as of this encounter Plan of Treatment Not on file documented as of this encounter Visit Diagnoses Diagnosis Muscle spasm- Primary Spasm of muscle SOB (shortness of breath) Shortness of breath documented in this encounter Additional Health Concerns Assessment Noted Time PHQ-9 Depression Total Score: 5 06/04/19 8:18 AM SHUTTLE BUS DRIVER documented as of this encounter Care Teams Change House Attendant Relationship Specialty Start Date End Date Jaycee Patino APRN SENIOR INTEGRATION DEVELOPER [address] [place] [address] PCP - General Family Medicine 05/31/22 12/08/23 Julissa Alvarenga MD [address] [facility] [place] [address] PCP - General Family Medicine 12/09/23 Jaycee Patino APRN SENIOR INTEGRATION DEVELOPER [address] [place] [address] Assigned PCP 06/15/22 09/20/22 Modesta Guillen MD ORTHOPAEDIC SURGERY [facility] [address] Assigned Musculoskeletal Provider 07/13/22 06/11/23 Reji Max MD [address] [place] [address] Assigned Surgical Provider 07/13/22 Jaycee Ken MD [address] [place] [address] Assigned PCP 09/21/22 06/11/23 [facility] [address] [place] [address] Assigned PCP 06/12/23 01/08/24 Modesta Guillen MD ORTHOPAEDIC SURGERY [facility] [address] [address] Assigned Musculoskeletal Provider 06/20/23 01/08/24 Julissa Alvarenga MD [address] [place] [address] Assigned PCP 01/09/24 documented as of this encounter
--- OUTSIDE RECORDS SUMMARY | 2024-07-12 16:03 | XMS_ITS | Encounter Summary ---
Author Organization [facility] Address [address] [place] [address] Care Team Providers Care Director Of Patient Safety Name Role Phone Jaycee Patino APRN COMPUTER PROGRAMMING PROFESSOR Primary Care Provide r Jaycee Patino APRN, CNP Unavailable [phone] Modesta Guillen MD Unavailable [phone] Reji Max MD Unavailable saharaJaycee vides MD Unavailable [phone] [facility] Unavailable [phone] Modesta Guillen MD Unavailable [phone] Julissa Alvarenga MD Primary Care Provider [phone] Julissa Alvarenga MD Unavailable [phone] Encounter Details Date Type Department Care Team (Late st Contact Info) Description 07/22/2022 [facility] [place] [facility] [place] [address] [facility] [address]th [place] [address] Modesta Guillen MD ORTHOPAEDIC SURGERY [address] [address] Social History Tobacco Use Types [...] Coronavirus/COVID-19? No / Unsure 07/08/2022 1:12 PM HOME OFFICE CLAIMS EXAMINER documented as of this encounter Miscellaneous Notes * Telephone Encounter - Minoo Taylor ATC - 07/26/2022 7:35 AM HOME OFFICE CLAIMS EXAMINER Patient sent additional telephone encounter regarding this information on 07/25/22. Please see most recent encounter for most up to date information. Minoo Taylor MBA, ATC OFFICE CLAIMS EXAMINER documented in this encounter Plan of Treatment Not on file documented as of this encounter Visit Diagnoses Not on filedocumented in this encounter Additional Health Concerns Assessment Noted Time PHQ-9 Depression Total Score: 5 06/04/19 8:18 AM HOME OFFICE CLAIMS EXAMINER documented as of this encounter Care Teams Director Of Patient Safety Relationship Specialty Start Date End Date Jaycee Patino APRN COMPUTER PROGRAMMING PROFESSOR [address] [place] [address] PCP - General Family Medicine 05/31/22 12/08/23 Julissa Alvarenga MD [address] [place] [address] PCP - General Family Medicine 12/09/23 Jaycee Patino APRN COMPUTER PROGRAMMING PROFESSOR [address] [place] [address] Assigned PCP 06/15/22 09/20/22 Modesta Guillen MD ORTHOPAEDIC SURGERY [address] [place] [address] Assigned Musculoskeletal Provider 07/13/22 06/11/23 Reji Max MD [address] [place] [address] Assigned Surgical Provider 07/13/22 Jaycee Ken MD [address] [place] [address] Assigned PCP 09/21/22 06/11/23 [facility] [address] [place] [address] Assigned PCP 06/12/23 01/08/24 Modesta Guillen MD ORTHOPAEDIC SURGERY [address] [place] [address] Assigned Musculoskeletal Provider 06/20/23 01/08/24 Julissa Alvarenga MD [address] [place] [address] Assigned PCP 01/09/24 documented as of this encounter
--- OUTSIDE RECORDS SUMMARY | 2024-07-12 16:03 | XMS_ITS | Encounter Summary ---
Author Organization [facility] Address [address] [place] [address] Care Team Providers Care Business Resiliency Manager Name Role Phone No Ref-Primary, Physician Primary Care Provider Dionne Mayorga MD Unavailable [phone] [facility] Primary Care Provider Jaycee Patino APRN SUPERVISOR OF RESEARCH Primary Care Provide r Jaycee Patino APRN SUPERVISOR OF RESEARCH Unavailable [phone] Modesta Guillen MD Unavailable Reji Max MD Unavailable Jaycee Ken MD Unavailable [phone] [facility] Unavailable [phone] Modesta Guillen MD Unavailable [phone] Julissa Alvarenga MD Primary Care Provider [phone] Julissa Alvarenga MD Unavailable [phone] Encounter Details Date Type Department Care Team (Late st Contact Info) Description 10/05/2020 MyC Medical Advice [address], [address] [place] [address] Orville Toth CMA Social History Tobacco Use Types Packs/Day Years Used Date Smoking Tobacco: Never Smokeless Tobacco: Never Alcohol Use Standard Drinks/Week Comments Yes 0 (1 standard drink = 0.6 oz pur e alcohol) maybe 1 a month PHQ-2 Answer Date Recorded PHQ-2 Score 0 03/07/2020 Sex and Gender Information Value Date Recorded Sex Assigned at Not on file Legal Sex Male 11:54 AM CDT Gender Identity Not on file Sexual Orientation Not on file documented as of this encounter Plan of Treatment Not on file documented as of this encounter Visit Diagnoses Not on filedocumented in this encounter Care Teams Business Resiliency Manager Relationship Specialty Start Date End Date No Ref-Primary, Physician PCP - General 03/07/20 05/08/[address] [address] PCP - General 05/09/22 05/30/22 Jaycee Patino APRN SUPERVISOR OF RESEARCH [address] [place] [address] PCP - General Family Medicine 05/31/22 12/08/23 Julissa Alvarenga MD [address] [place] [address] PCP - General Family Medicine 12/09/23 Dionne Mayorga MD [address] [address] Assigned PCP 02/11/20 05/03/22 Jaycee Patino APRN SUPERVISOR OF RESEARCH [address] [place] [address] Assigned PCP 06/15/22 09/20/22 Modesta Guillen MD ORTHOPAEDIC SURGERY [address] [place] [address] Assigned Musculoskeletal Provider 07/13/22 06/11/23 Reji Max MD [address] [place] [address] Assigned Surgical Provider 07/13/22 Jaycee Ken MD [address] [place] [address] Assigned PCP 09/21/22 06/11/23 [facility] [address] [place] [phone] Assigned PCP 06/12/23 01/08/24 Modesta Guillen MD ORTHOPAEDIC SURGERY [facility] [address] [address] Assigned Musculoskeletal Provider 06/20/23 01/08/24 Julissa Alvarenga MD [address] [place] [address] Assigned PCP 01/09/24 documented as of this encounter
--- OUTSIDE RECORDS SUMMARY | 2024-07-12 16:03 | XMS_ITS | Encounter Summary ---
Author Organization [facility] Address [address] [place] [address] Care Team Providers Care Tool And Die Maker/Designer Name Role Phone Jaycee Patino APRN GARAGE DOOR HANGER Primary Care Provide r Jaycee Patino APRN, CNP Unavailable [phone] Modesta Guillen MD Unavailable [phone] Reji Max MD Unavailable Jaycee Ken MD Unavailable [phone] [facility] Unavailable [phone] Modesta Guillen MD Unavailable [phone] Julissa Alvarenga MD Primary Care Provider [phone] Julissa Alvarenga MD Unavailable [phone] Reason for Visit * Reason Onset Date Comments Patient Request 07/12/2022 request Call Back 07/12/2022 Encounter Details Date Type Department Care Team (Late st Contact Info) Description 07/12/2022 Telephone [facility] [place] [address] [facility] [address] [place] [address] Modesta Guillen MD ORTHOPAEDIC SURGERY [address] [address] Patient Request (request); Call Back Social History Tobacco Use Types Packs/Day Years [...] Coronavirus/COVID-19? No / Unsure 07/08/2022 1:12 PM MECHANICAL DRAFTER documented as of this encounter Miscellaneous Notes * Telephone Encounter - Minoo Taylor - 07/15/2022 5:40 PM CST Patient also sent bead Button message regarding this information. Responded to patient via bead Button to clarify the requested information. Minoo Taylor MBA, ATC ANICAL DRAFTER * Telephone Encounter - Lucinda Carpenter - 07/15/2022 4:14 PM CST [facility] Phone Message May a detailed message be left on voicemail: yes Reason for Call: Other: Pt Ordered the hinged brace for knee, had to go back on crutches because ofsome pain, also employer needs to know how long he will be out, please call patient regarding this Action Taken: Other: [employer] Travel Screening: Not Applicable ANICAL DRAFTER * Telephone Encounter - Lili Leonardo - 07/12/2022 1:56 PM CST [facility] Phone Message May a detailed message be left on voicemail: no Reason for Call: Patient was requesting RTW paperwork, but called later in the same day to disregard this message. He will be doing PT and will let us know if he needs anything from the care team. ANICAL DRAFTER ANICAL DRAFTER documented in this encounter Plan of Treatment Not on file documented as of this encounter Visit Diagnoses Not on filedocumented in this encounter Additional Health Concerns Assessment Noted Time PHQ-9 Depression Total Score: 5 06/04/19 8:18 AM MECHANICAL DRAFTER documented as of this encounter Care Teams Tool And Die Maker/Designer Relationship Specialty Start Date End Date Jaycee Patino APRN GARAGE DOOR HANGER [address] [place] [address] PCP - General Family Medicine 05/31/22 12/08/23 Julissa Alvarenga MD [address] [place] [address] PCP - General Family [facility] 12/09/23 Jaycee Patino APRN GARAGE DOOR HANGER [address] [place] [address] Assigned PCP 06/15/22 09/20/22 Modesta Guillen MD ORTHOPAEDIC SURGERY [facility] [address] [address] Assigned Musculoskeletal Provider 07/13/22 06/11/23 [place] [address] [place] [address] Assigned Surgical Provider 07/13/22 Jaycee Ken MD [address] [place] [address] Assigned PCP 09/21/22 06/11/23 [facility] [address] [place] [id number] Assigned PCP 06/12/23 01/08/24 Modesta Guillen MD ORTHOPAEDIC SURGERY [address] [place] [address] Assigned Musculoskeletal Provider 06/20/23 01/08/24 Julissa Alvarenga MD [address] [place] [address] Assigned PCP 01/09/24 documented as of this encounter
--- OUTSIDE RECORDS SUMMARY | 2024-07-12 16:03 | XMS_ITS | Encounter Summary ---
Author Organization [facility] Address [address] [place] [address] Care Team Providers Care Tour Leader Name Role Phone Julissa Alvarenga MD Primary Care Provider [phone] Julissa Alvarenga MD Unavailable [phone] Reason for Visit * Reason Onset Date Comments Refill Request 06/16/2024 REFILLS THRU CAR DIOLOGY - NOT PCP Encounter Details Date Type Department Care Team (Late st Contact Info) Description 06/16/2024 MyC Refill [facility] [address] [place] [address] Julissa Alvarenga MD [address] [place] [address] Refill Request (REFILLS THRU CARDIOLOGY - ... Social History Tobacco Use Types Packs/Day Years [...] re latives? Once a week 03/11/2024 Attends [employer] Services Not on file 03/11 Active Member of Clubs or Organizations Not on f ile 03/11/2024 Attends Club or Organization Meetings Not on andrew e 03/11/2024 Marital Status Not on file 03/11/2024 PHQ-2 Answer Date Recorded PHQ-2 Score 0 03/11/2024 [facility] of Occupat ional Health - Occupational Stress [...] Answer Date Recorded Do you have housing? (Housin g is defined as stable permanent housing and does not include staying ouside in a car, in a tent, in an abandoned building, in an overnight fdc, or couch-surfing.) Yes 03/11/2024 Are you worried [...] Total Score: 5 06/04/19 23 8:18 AM STOVE BOTTOM WORKER documented as of this encounter Care Teams Tour Leader Relationship Specialty Start Date End Date Julissa Alvarenga MD [address] [address] PCP - General Family Medicine 12/09/23 Julissa Alvarenga MD [address] [address] Assigned PCP 01/09/24 documented as of this encounter
--- OUTSIDE RECORDS SUMMARY | 2024-07-12 16:03 | XMS_ITS | Encounter Summary ---
Author Organization [facility] Address [address] [place] [address] Care Team Providers Care Chair Post Machine Operator Name Role Phone [facility] Primary Care Provider aJycee Patino APRN MARKETING COMMUNICATIONS MANAGER Primary Care Provide r Jaycee Patino APRN, CNP Unavailable [phone] Modesta Guillen MD Unavailable [phone] Reji Max MD Unavailable Jaycee hernandez MD Unavailable [phone] [facility] Unavailable [phone] Modesta Guillen MD Unavailable [phone] Julissa Alvarenga MD Primary Care Provider [phone] Julissa Alvarenga MD Unavailable [phone] Encounter Details Date Type Department Care Team (Late st Contact Info) Description 05/28/2022 Telephone [facility] [address] [facility] 4th [place] [address] [facility] [address] [place] [address] Social History Tobacco Use Types Packs/Day Years [...] suspected to have Coronavirus/COVID-19? No / Unsure 05/09/2022 11:31 AM AUTOMOBILE LOCATOR documented as of this encounter Miscellaneous Notes * Telephone Encounter - Natalia Winters ATC - 05/30/2022 4:45 PM CST Orthopedic/Sports Medicine Fracture Triage Incoming call/or message from call center member. Fracture type: Femur. The patient is in a n/a. Date of injury 05/27/22. Triaged by: DESTINEE Amor . Determined to be managed: should see someone who sees osteoporosis Needs to be seen within 1 week. Additional Comments/information: Encounter forwarded to clinical data analyst to schedule with Dr. Cano or [facility]. Michele Winters ATC MOBILE LOCATOR * Telephone Encounter - Natalia Winters ATC - 05/28/2022 4:42 PM CST Note sent to systems specialist to request imaging for triaging. -NIKOLAS Bautista- Orthopedics MOBILE LOCATOR * Telephone Encounter - Young August - 05/28/2022 2:02 PM CST Patient Returning Call Reason for call: Patient went to [facility] for Left femur fracture needing to be seen this week Information relayed to patient: TE sent to clinic Patient has additional questions: Yes What are your questions/concerns: Requesting callback Could we send this information to you in [facility] or would you prefer to receive a phone call?: Patient would prefer a phone call Okay to leave a detailed message?: Yes at Other phone number: [phone] MOBILE LOCATOR documented in this encounter Plan of Treatment Not on file documented as of this encounter Visit Diagnoses Not on filedocumented in this encounter Care Teams Chair Post Machine Operator Relationship Specialty Start Date End Date [facility], [address] [address] PCP - General 05/09/22 05/30/22 Jaycee Patino APRN MARKETING COMMUNICATIONS MANAGER [address] [place] [address] PCP - General Family Medicine 05/31/22 12/08/23 Julissa Alvarenga MD [address] [place] [address] PCP - General Family Medicine 12/09/23 Jaycee Patino APRN MARKETING COMMUNICATIONS MANAGER [address] [place] [address] Assigned PCP 06/15/22 09/20/22 Modesta Guillen MD ORTHOPAEDIC SURGERY [facility] [address] Assigned Musculoskeletal Provider 07/13/22 06/11/23 [place] [address] [place] [address] Assigned Surgical Provider 07/13/22 Jaycee Ken MD [address] [place] [address] Assigned PCP 09/21/22 06/11/23 [facility] [address] [address] Assigned PCP 06/12/23 01/08/24 Modesta Guillen MD ORTHOPAEDIC SURGERY [address] [place] [address] Assigned Musculoskeletal Provider 06/20/23 01/08/24 Julissa Alvarenga MD [address] [address] Assigned PCP 01/09/24 documented as of this encounter
--- OUTSIDE RECORDS SUMMARY | 2024-07-12 16:03 | XMS_ITS | Encounter Summary ---
Author Organization [facility] Address [address] [place] [address] Care Team Providers Care Services Executive Name Role Phone Jaycee Patino APRN JUNIOR WEB DESIGNER Primary Care Provide r Jaycee Patino APRN, CNP Unavailable [phone] Modesta Guillen MD Unavailable [phone] Reji Max MD Unavailable saharaJaycee vides MD Unavailable [phone] [facility] Unavailable [phone] Modesta Guillen MD Unavailable [phone] Julissa Alvarenga MD Primary Care Provider [phone] Julissa Alvarenga MD Unavailable [phone] Encounter Details Date Type Department Care Team (Late st Contact Info) Description 07/15/2022 [facility] [place] [facility] [place] [address] [facility] [address] 4th [place] [address] Modesta Guillen MD ORTHOPAEDIC SURGERY [address] [address] Social History Tobacco Use Types [...] Coronavirus/COVID-19? No / Unsure 07/08/2022 1:12 PM SEMIAUTOMATIC STITCHER OPERATOR documented as of this encounter Miscellaneous Notes * Telephone Encounter - Modesta Guillen MD - 07/17/2022 10:58 AM SEMIAUTOMATIC STITCHER OPERATOR Work letter printed and signed. Ready to be faxed to [place]. Modesta Jefferson MD, [facility] AUTOMATIC STITCHER OPERATOR * Telephone Encounter - Minoo Taylor - 07/16/2022 8:29 AM CST Please see patient's request for work letter for employer allowing him to return to work on 07/24/22 without restrictions and advise. Minoo Taylor MBA, ATC AUTOMATIC STITCHER OPERATOR documented in this encounter Plan of Treatment Not on file documented as of this encounter Visit Diagnoses Not on filedocumented in this encounter Additional Health Concerns Assessment Noted Time PHQ-9 Depression Total Score: 5 06/04/19 8:18 AM SEMIAUTOMATIC STITCHER OPERATOR documented as of this encounter Care Teams Services Executive Relationship Specialty Start Date End Date Jaycee Patino APRN JUNIOR WEB DESIGNER [address] [address] PCP - General Family Medicine 05/31/22 12/08/23 Julissa Alvarenga MD [address] [address] PCP - General Family Medicine 12/09/23 Jaycee Patino APRN [employer] [address] [place] [address] Assigned PCP 06/15/22 09/20/22 Modesta Guillen MD ORTHOPAEDIC SURGERY [address] [place] [address] Assigned Musculoskeletal Provider 07/13/22 06/11/23 Reji Max MD [address] [place] [address] Assigned Surgical Provider 07/13/22 Jaycee Ken MD [address] [place] [address] Assigned PCP 09/21/22 06/11/23 [facility] [address] [place] [address] Assigned PCP 06/12/23 01/08/24 Modesta Guillen MD ORTHOPAEDIC SURGERY [address] [place] [address] Assigned Musculoskeletal Provider 06/20/23 01/08/24 Julissa Alvarenga MD [address] [place] [address] Assigned PCP 01/09/24 documented as of this encounter
--- OUTSIDE RECORDS SUMMARY | 2024-07-12 16:03 | XMS_ITS | Encounter Summary ---
Author Organization [facility] Address [address] [place] [address] Care Team Providers Care Master Scheduler Name Role Phone Jaycee Patino APRN HARNESS BUILDER Primary Care Provide r Jaycee Patino APRN, CNP Unavailable [phone] Modesta Guillen MD Unavailable Reji Max MD Unavailable saharaJaycee vides MD Unavailable [phone] [facility] Unavailable [phone] Modesta Guillen MD Unavailable [phone] Julissa Alvarenga MD Primary Care Provider [phone] Julissa Alvarenga MD Unavailable [phone] Encounter Details Date Type Department Care Team (Late st Contact Info) Description 07/30/2022 [facility] [place] [facility] Adv[facility] [place] [address] [facility] [address] 4th [place] [address] Modesta Guillen MD ORTHOPAEDIC SURGERY [address] [address] Acute pain of left knee (Primary Dx); Insufficiency fracture of left femur with routine healing, subsequent encounter Social History Tobacco Use Types Packs/Day Years [...] Coronavirus/COVID-19? No / Unsure 07/08/2022 1:12 PM ASSET AVAILABILITY LEADER documented as of this encounter Miscellaneous Notes * Telephone Encounter - Minoo Taylor ATC - 08/05/2022 2:20 PM CDT Re-faxed forms to [employer] @ [phone]. Responded to patient via [employer]. Minoo Taylor MBA ATC * Telephone Encounter - Kianna Jackson - 07/31/2022 12:43 PM CDT Faxed forms to [employer] at [phone] Forms left in out box while awaiting response from patient Diann Jackson ATC * Telephone Encounter - Modesta Guillen MD - 07/31/2022 11:49 AM CDT Form completed and in provider inbox. Ready to be faxed or emailed per patient request. Modesta Jefferson MD, [facility] * Telephone Encounter - Minoo Taylor ATC - 07/30/2022 8:45 AM CDT Reason for Call: Form, our goal is to have forms completed with 7 days, however, some forms may require a visit or additional information. Type of letter, form or note: Attending Physician Statement Who is the form from?: [employer] Where did the form come from: Patient or family brought in Desired completion date of form: nii How will form be returned?: Waiting for patient reply Has the patient signed a consent form for release of information (may be included with form)? NO Form was started and place in Provider Basket for provider review/ completion at [facility]. Minoo Taylor MBA, ATC documented in this encounter Plan of Treatment Not on file documented as of this encounter Visit Diagnoses Diagnosis Acute pain of left knee- Primary Insufficiency fracture of left femur with routine healing, subsequent encounter documented in this encounter Additional Health Concerns Assessment Noted Time PHQ-9 Depression Total Score: 5 06/04/19 8:18 AM ASSET AVAILABILITY LEADER documented as of this encounter Care Teams Master Scheduler Relationship Specialty Start Date End Date Jaycee Patino APRN HARNESS BUILDER [address] [facility] [place] [address] PCP - General Family Medicine 05/31/22 12/08/23 Julissa Alvarenga MD [address] [place] [address] PCP - General Family Medicine 12/09/23 Jaycee Patino APRN HARNESS BUILDER [address] [facility] [place] [address] Assigned PCP 06/15/22 09/20/22 Modesta Guillen MD ORTHOPAEDIC SURGERY [address] [place] [address] Assigned Musculoskeletal Provider 07/13/22 06/11/23 Reji Max MD [address] [place] [address] Assigned Surgical Provider 07/13/22 Jaycee Ken MD [address] [place] [address] Assigned PCP 09/21/22 06/11/23 [facility] [address] [place] [address] Assigned PCP 06/12/23 01/08/24 Modesta Guillen MD ORTHOPAEDIC SURGERY [facility] [address] [address] Assigned Musculoskeletal Provider 06/20/23 01/08/24 Julissa Alvarenga MD [address] [place] [address] Assigned PCP 01/09/24 documented as of this encounter
[2024-07-12 16:06] VITALS: BP 157/97; PULSE 72; RESP 20; TEMP 36.3; O2SAT 96; BMI 46.2
[2024-07-12 16:54] LABS: Basophils Absolute Auto 0.02 K/uL (0.00-0.30); Basophils Percent Auto 0.4 % (0.0-3.0); Eosinophils Absolute Auto 0.15 K/uL (0.00-0.50); Hemoglobin* 15.2 gm/dL (13.5-17.5); Immature Granulocytes Abs Auto 0.01 K/uL (0.00-0.30); Immature Granulocytes Pct Auto 0.2 %; Lymphocytes Absolute Auto 1.27 K/uL (0.90-2.90); Lymphocytes Percent Auto 25.6 % (20-44); Mean Corpuscular HGB Conc 32 gm/dL (32-36); Mean Corpuscular Hemoglobin 31 pg (26-34); Mean Corpuscular Volume 96 fL (80-100); Monocytes Percent Auto 6.4 % (0.0-11.0); Neutrophils Percent Auto 64.4 % (42.0-72.0); Platelet Count* 208 K/uL (140-440); Red Blood Count 4.92 m/uL (4.30-5.90); White Blood Count* 4.97 K/uL (4.50-11.00)
[2024-07-12 16:58] LABS: Slide Review Reflex No
--- NOTE | 2024-07-12 17:03 | CRLHL7_ITS ---
For Patients: As a result of the Cures Act, medical imaging exams and procedure reports are released immediately into your electronic medical record. You may view this report before your referring provider. If you have questions, please contact your health care provider. Indication: CHEST PAIN Technique: PA and lateral views of the chest. Comparison: Report 07/28/2023. Findings: Low lung volumes. Normal cardiomediastinal silhouette. No focal consolidation, pleural effusions, or visualized pneumothorax. Mild degenerative changes of the visualized spine. Right upper lobe calcified granuloma. Impression: No acute cardiopulmonary disease. Dictated by Prasad Diaz MD @ 07/12/2024 6:12:59 PM (Electronically Signed)
[2024-07-12 17:06] LABS: Albumin* 4.5 g/dL (3.3-5.0); Chloride* 103 mmol/L (96-114)
[2024-07-12 17:07] LABS: Potassium* 4.2 mmol/L (3.6-5.1); Sodium* 138 mmol/L (135-149)
[2024-07-12 17:09] LABS: Alkaline Phosphatase* 74 U/L (40-150); Anion Gap 9 mEq/L (7-15); Aspartate Amino Transferase* 34 U/L (12-35); Bilirubin Total* 0.4 mg/dL (0.1-1.5); Blood Urea Nitrogen* 18 mg/dL (7-30); Carbon Dioxide* 26 mmol/L (20-32); Est. Creatinine Clearance* 78.95; Estimated Glomerular Filt Rate 89 ml/min; Lipase* 118 U/L (23-300); Total Protein* 7.1 g/dL (6.0-8.3)
[2024-07-12 17:10] LABS: Alanine Aminotransferase* 50 U/L (4-50); Calcium* 8.8 mg/dL (8.4-10.6); Glucose* 105 mg/dL (60-115)
[2024-07-12 17:12] LABS: C Reactive Protein* 1.2 mg/dL (0.5-1.0)
[2024-07-12 17:25] LABS: Troponin I* < 0.01 ng/mL (0.01-0.04)
[2024-07-12 18:00] VITALS: BP 130/82; PULSE 60; RESP 16; O2SAT 95
--- NOTE | 2024-07-12 18:15 | ED_ITS ---
HPI - Chest Pain General Date Seen: 07/12/24 Chief Complaint: Chest Pain Stated Complaint: Tightness in chest Time Seen by Provider: 07/12/24 17:49 Source: patient Mode of arrival: ambulatory Limitations: no limitations History of Present Illness HPI narrative: Patient is a 53-year-old male presenting to the emergency department for chest pain. He has a history of AFib about a blood thinner. Chest pain started 3 weeks ago he states roughly about the same time he started working out again. Has not noticed any tenderness to palpation of his chest location will have some worsening pain if he moves his arm does admit he has history of shoulder injury. Denies having chest pain like this before describes it as a dull sensation that radiates from his left upper chest to his shoulder. Has not had any associated shortness of breath. Nothing seems to make the pain better or worse. He does see cardiology infrequently but does have an appointment in August. Has been taking his medication as directed. No history of smoking. No history of lung disease or other heart disease other than the AFib. Denies lightheadedness, dizziness, weakness, numbness, abdominal pain, diarrhea, constipation. He is also wanted this could be related to anxiety as he has been feeling more anxious about it recently. Related Data Home Medications ?Medication ?Instructions ?Recorded ?Confirmed albuterol 04/30/22 amiodarone 200 mg tablet 200 mg PO 04/16/23 rivaroxaban 20 mg tablet (Xarelto) 20 mg PO DAILY 04/16/23 07/12/24 Allergies Allergy/AdvReac Type Severity Reaction Status Date / Time iodine Allergy Intermediate Verified 04/28/23 08:37 Review of Systems Status of ROS Reports: 10 or more systems reviewed and unremarkable except as noted in History and below [facility] Social History Smoking Status: Never smoker Do you use any of these nicotine containing products: None How often do you have a drink containing alcohol: never How often do you have six or more drinks on one occasion: Never AUDIT-C Alcohol total score: 0 Non-prescribed substance use: denies use Exam Narrative Exam Narrative: Const: Well-nourished, Well-developed, in no distress Eyes: PERRL, no conjunctival injection, and symmetrical lids HENT: Atraumatic external nose and ears. Moist mucous membranes. Neck: Symmetric, trachea midline, No thyromegaly. CVS: RRR, No murmurs or gallops. Peripheral pulses 2+ and equal in all extremities RESP: Unlabored respiratory effort. Clear to auscultation bilaterally. GI: Nontender/Nondistended, No rebound or guarding. MSK:Extremities w/o deformity, Normal Active ROM, no tenderness to palpation of chest Skin: Warm, Dry. No rashes or lesions. Neuro: Normal Muscle tone, No focal neurological deficits. Psych: Awake, Alert, & Oriented x3. Appropriate mood and affect. Const Vital Signs, click to edit/add: Vital Signs - 24 hr 07/12/24 16:06 07/12/24 18:00 Temperature 97.3 F L Pulse Rate [Pulse Oximeter] 72 60 Respiratory Rate 20 16 Blood Pressure [Right Upper Arm] 157/97 H 130/82 Pulse Oximetry 96 95 Oxygen Delivery Method Room Air Room Air Course Vital Signs Vital signs: Initial Vital Signs Temperature 97.3 F L 07/12/24 16:06 Temperature Source Temporal Artery Scan 07/12/24 16:06 Pulse Rate 72 07/12/24 16:06 Respiratory Rate 20 07/12/24 16:06 Blood Pressure 157/97 H 07/12/24 16:06 Blood Pressure Mean 117 H 07/12/24 16:06 Blood Pressure Position Sitting 07/12/24 16:06 Pulse Oximetry 96 07/12/24 16:06 Oxygen Delivery Method Room Air 07/12/24 16:06 Vital Signs Temperature 97.3 F L 07/12/24 16:06 Pulse Rate 72 07/12/24 16:06 Respiratory Rate 20 07/12/24 16:06 Blood Pressure 157/97 H 07/12/24 16:06 Pulse Oximetry 96 07/12/24 16:06 Oxygen Delivery Method Room Air 07/12/24 16:06 Temperature 97.3 F L 07/12/24 16:06 Pulse Rate 60 07/12/24 18:00 Respiratory Rate 16 07/12/24 18:00 Blood Pressure 130/82 07/12/24 18:00 Pulse Oximetry 95 07/12/24 18:00 Oxygen Delivery Method Room Air 07/12/24 18:00 MDM - Chest Pain MDM Narrative Medical decision making narrative: Patient is a 53-year-old male presenting for chest pain. The differential diagnosis of chest pain is broad and includes common etiologies such as musculoskeletal strain, GERD, pneumonia, etc. More serious etiologies considered include PE, coronary artery disease, pneumothorax, aortic dissection, aortic aneurysm. Will do an EKG and troponin to look for signs of ACS. Will also order CBC, BMP. CRP and lipase were order in triage by nursing staff due to the backup of patient we are currently having. Chest x-ray ordered this will help look for signs of pneumonia or pneumothorax. I am very low concern for PE, aortic dissection, aortic aneurysm at this time. Lab work all returned showing no concerning abnormalities. CRP is very slightly elevated but is a very nonspecific and I do not believe needs to be further evaluated. EKG shows AFib which is known. EKG looks otherwise unremarkable. Chest x-ray reviewed myself the radiologist shows no concerning findings. Since pain has been going on consistently for 3 weeks I do not believe repeat troponin is necessary. This time patient is doing well and is safe for discharge. He is agreeable to this plan. Lab Data Labs: Lab Results 07/12/24 Range/Units 16:47 WBC 4.97 (4.50-11.00) K/uL RBC 4.92 (4.30-5.90) m/uL Hgb 15.2 (13.5-17.5) gm/dL Hct 47.0 (37.0-53.0) % MCV 96 (80-100) fL MCH 31 (26-34) pg MCHC 32 (32-36) gm/dL RDW Coeff of Daljit 13.0 (11.5-15.5) % Plt Count 208 (140-440) K/uL Neut % (Auto) 64.4 (42.0-72.0) % Lymph % (Auto) 25.6 (20-44) % Harnett % (Auto) 6.4 (0.0-11.0) % Eos % (Auto) 3.0 (0.0-7.0) % Baso % (Auto) 0.4 (0.0-3.0) % Neut # (Auto) 3.20 (1.7-7.0) K/uL Lymph # (Auto) 1.27 (0.90-2.90) K/uL Harnett # (Auto) 0.30 (0.00-0.90) K/UL Eos # (Auto) 0.15 (0.00-0.50) K/uL Baso # (Auto) 0.02 (0.00-0.30) K/uL Abs Immat Gran (auto) 0.01 (0.00-0.30) K/uL Imm/Tot Granulo (auto) 0.2 % Sodium 138 (135-149) mmol/L Potassium 4.2 (3.6-5.1) mmol/L Chloride 103 (96-114) mmol/L Carbon Dioxide 26 (20-32) mmol/L Anion Gap 9 (7-15) mEq/L BUN 18 (7-30) mg/dL Creatinine 1.0 (0.5-1.5) mg/dL Estimated Creat Clear 78.95 Estimated GFR 89 ml/min Glucose 105 (60-115) mg/dL Calcium 8.8 (8.4-10.6) mg/dL Total Bilirubin 0.4 (0.1-1.5) mg/dL AST 34 (12-35) U/L ALT 50 (4-50) U/L Alkaline Phosphatase 74 (40-150) U/L Troponin I < 0.01 L (0.01-0.04) ng/mL C-Reactive Protein 1.2 H (0.5-1.0) mg/dL Total Protein 7.1 (6.0-8.3) g/dL Albumin 4.5 (3.3-5.0) g/dL Lipase 118 (23-300) U/L Imaging Data Chest x-ray: Attestation: I have reviewed the pertinent imaging results. Radiologist's impression: No acute cardiopulmonary disease. Dictated by Prasad Diaz MD @ 07/12/2024 6:12:59 PM ECG Data Attestation: I personally reviewed and interpreted this ECG as follows: Prior ECG tracings: available for review Interpretation: AFib with a rate of 93 beats per minute, left axis deviation,, normal QTC, normal QRS, no ST or T-wave abnormalities, appears similar previous EKGs on file. Discharge Plan Discharge Clinical Impression: Atypical chest pain Patient Disposition: Home, Self-Care Condition: Stable Instructions: Noncardiac Chest Pain (ED) Additional Instructions: Take Tylenol and ibuprofen for pain. Return for any other new or worsening symptoms. Follow-up with your primary care provider and/or casing runner. Prescriptions: No Action amiodarone 200 mg tablet 200 mg PO Xarelto 20 mg tablet 20 mg PO DAILY albuterol Follow Up/Referrals: Lupis Juan PA-C [Primary Care Provider] - Stand Alone Forms: [employer] Info Instructions
--- OUTSIDE RECORDS SUMMARY | 2024-07-12 18:23 | XMS_ITS | Encounter Summary ---
Author Organization [facility] Address [address] [place] [address] Care Team Providers Care Roto Gravure Press Operator Name Role Phone Jaycee Patino APRN CLINICAL ASSOCIATE Primary Care Provide r Jaycee Patino APRN, CNP Unavailable [phone] Modesta Guillen MD Unavailable [phone] Reji Max MD Unavailable [facility] vides MD Unavailable [phone] [facility] Unavailable [phone] Modesta Guillen MD Unavailable [phone] Julissa Alvarenga MD Primary Care Provider [phone] Julissa Alvarenga MD Unavailable [phone] Encounter Details Date Type Department Care Team (Late st Contact Info) Description 07/04/2022 [facility] Medical Advice [facility] [place] [address] [place] [address] lFor Verma Social History Tobacco Use Types Packs/Day [...] Coronavirus/COVID-19? No / Unsure 07/04/2022 10:58 AM RISK CONSULTANT documented as of this encounter Plan of Treatment Not on file documented as of this encounter Visit Diagnoses Not on filedocumented in this encounter Additional Health Concerns Assessment Noted Time PHQ-9 Depression Total Score: 5 06/04/19 8:18 AM RISK CONSULTANT documented as of this encounter Care Teams Roto Gravure Press Operator Relationship Specialty Start Date End Date Jaycee Patino APRN CLINICAL ASSOCIATE [address] [place] [address] PCP - General Family Medicine 05/31/22 12/08/23 Julissa Alvarenga MD [address] [place] [address] PCP - General Family Medicine 12/09/23 Jaycee Patino APRN CLINICAL ASSOCIATE [address] [place] [address] Assigned PCP 06/15/22 09/20/22 Modesta Guillen MD ORTHOPAEDIC SURGERY [facility] [address] Assigned Musculoskeletal Provider 07/13/22 06/11/23 Reji Max MD [address] [place], [place] [address] Assigned Surgical Provider 07/13/22 Jaycee Ken MD [address] [place] [address] [id number] Assigned PCP 09/21/22 06/11/23 [facility] [address] [id number] Assigned PCP 06/12/23 01/08/24 Modesta Guillen MD ORTHOPAEDIC SURGERY [address] [place] [address] Assigned Musculoskeletal Provider 06/20/23 01/08/24 Julissa Alvarenga MD [address] [address] Assigned PCP 01/09/24 documented as of this encounter
--- OUTSIDE RECORDS SUMMARY | 2024-07-12 18:23 | XMS_ITS | Encounter Summary ---
Author Organization [place] Address [address] [place] [address] Care Team Providers Care Rocket Engine Mechanic Name Role Phone Jaycee Patino APRN DINING ROOM MANAGER Primary Care Provide r Jaycee Patino APRN, CNP Unavailable [phone] Modesta Guillen MD Unavailable [phone] Reji Max MD Unavailable Jaycee Ken MD Unavailable [phone] [facility] Unavailable [phone] Modesta Guillen MD Unavailable [phone] Julissa Alvarenga MD Primary Care Provider [phone] Julissa Alvarenga MD Unavailable [phone] Encounter Details Date Type Department Care Team (Late st Contact Info) Description 07/25/2022 [facility] Medical Advice [facility] [address] [place] [address] Jaycee Ken MD [address] [place] [address] Social History Tobacco Use Types Packs/Day [...] Coronavirus/COVID-19? No / Unsure 07/08/2022 1:12 PM ACCOUNTING SUPERVISOR documented as of this encounter Plan of Treatment Not on file documented as of this encounter Visit Diagnoses Not on filedocumented in this encounter Additional Health Concerns Assessment Noted Time PHQ-9 Depression Total Score: 5 06/04/19 8:18 AM ACCOUNTING SUPERVISOR documented as of this encounter Care Teams Rocket Engine Mechanic Relationship Specialty Start Date End Date Jaycee Patino APRN DINING ROOM MANAGER [address] [place] [address] PCP - General Family Medicine 05/31/22 12/08/23 Julissa Alvarenga MD [address] [place] [address] PCP - General Family Medicine 12/09/23 Jaycee Patino APRN DINING ROOM MANAGER [address] [place] [address] Assigned PCP 06/15/22 09/20/22 Modesta Guillen MD ORTHOPAEDIC SURGERY [facility] [address] Assigned Musculoskeletal Provider 07/13/22 06/11/23 Reji Max MD [address] [place] [address] Assigned Surgical Provider 07/13/22 Jaycee Ken MD [address] [place] [address] Assigned PCP 09/21/22 06/11/23 [facility] [address] [place] [address] Assigned PCP 06/12/23 01/08/24 Modesta Guillen MD ORTHOPAEDIC SURGERY [facility] [address] Assigned Musculoskeletal Provider 06/20/23 01/08/24 Julissa Alvarenga MD [address] [place] [address] Assigned PCP 01/09/24 documented as of this encounter
--- OUTSIDE RECORDS SUMMARY | 2024-07-12 18:23 | XMS_ITS | Encounter Summary ---
Author Organization [facility] Address [address] [place] [address] Care Team Providers Care Loan And Credit Manager Name Role Phone Jaycee Patino APRN BUSINESS PRACTICES SUPERVISOR Primary Care Provide r Jaycee Patino APRN, CNP Unavailable [phone] Modesta Guillen MD Unavailable [phone] Reji Max MD Unavailable saharaJaycee vides MD Unavailable [phone] [facility] Unavailable [phone] Modesta Guillen MD Unavailable [phone] Julissa Alvarenga MD Primary Care Provider [phone] Julissa Alvarenga MD Unavailable [phone] Encounter Details Date Type Department Care Team (Late st Contact Info) Description 07/25/2022 [facility] [place] [address] [facility] [address] [place] [address] Modesta Guillen MD ORTHOPAEDIC SURGERY [address] [address] Social History Tobacco Use Types [...] Coronavirus/COVID-19? No / Unsure 07/08/2022 1:12 PM FISH AND WILDLIFE TECHNICIAN documented as of this encounter Plan of Treatment Not on file documented as of this encounter Visit Diagnoses Not on filedocumented in this encounter Additional Health Concerns Assessment Noted Time PHQ-9 Depression Total Score: 5 06/04/19 8:18 AM FISH AND WILDLIFE TECHNICIAN documented as of this encounter Care Teams Loan And Credit Manager Relationship Specialty Start Date End Date Jaycee Patino APRN BUSINESS PRACTICES SUPERVISOR [address] [place] [address] PCP - General Family Medicine 05/31/22 12/08/23 Julissa Alvarenga MD [address] [place] [address] PCP - General Family Medicine 12/09/23 Jaycee Patino APRN BUSINESS PRACTICES SUPERVISOR [address] [place] [address] Assigned PCP 06/15/22 09/20/22 Modesta Guillen MD ORTHOPAEDIC SURGERY [facility] [address] [address] Assigned Musculoskeletal Provider 07/13/22 06/11/23 Reji Max MD [address] [place] [address] Assigned Surgical Provider 07/13/22 Jaycee Ken MD [address] [place] [address] Assigned PCP 09/21/22 06/11/23 [facility] [address] [place] [address] Assigned PCP 06/12/23 01/08/24 Modesta Guillen MD ORTHOPAEDIC SURGERY [facility] [address] [address] Assigned Musculoskeletal Provider 06/20/23 01/08/24 Julissa Alvarenga MD [address] [place] [address] Assigned PCP 01/09/24 documented as of this encounter
--- OUTSIDE RECORDS SUMMARY | 2024-07-12 18:23 | XMS_ITS | Encounter Summary ---
Author Organization [facility] Address [address] [place] [address] Care Team Providers Care Professor Of Special Education Name Role Phone Jaycee Patino APRN [facility] Primary Care Provide r Modesta Guillen MD Unavailable Reji Max MD Unavailable [facility] Unavailable [phone] [facility] Unavailable [phone] Modesta Guillen MD Unavailable Julissa Alvarenga MD Primary Care Provider [phone] Julissa Alvarenga MD Unavailable [phone] Encounter Details Date Type Department Care Team (Late st Contact Info) Description 02/25/2023 [facility] Medical Advice [facility] [address] [place] [address] Dayami Calloway, NIKOLAS Social History [...] Total Score: 5 06/04/19 23 8:18 AM DIPLOMA DENTAL ASSISTANT documented as of this encounter Care Teams Professor Of Special Education Relationship Specialty Start Date End Date Jaycee Patino APRN CNP [address] [place] [address] PCP - General Family Medicine 05/31/22 12/08/23 Julissa Alvarenga MD [address] [place] [address] PCP - General Family Medicine 12/09/23 Modesta Guillen MD ORTHOPAEDIC SURGERY [address] [place] [address] Assigned Musculoskeletal Provider 07/13/22 06/11/23 [place] [address] [place] [address] Assigned Surgical Provider 07/13/22 Jaycee Ken MD [address] [place] [address] Assigned PCP 09/21/22 06/11/23 [facility] [address] [place] [address] Assigned PCP 06/12/23 01/08/24 Modesta Guillen MD ORTHOPAEDIC SURGERY [address] [place] [address] Assigned Musculoskeletal Provider 06/20/23 01/08/24 Julissa Alvarenga MD [address] [address] Assigned PCP 01/09/24 documented as of this encounter
--- OUTSIDE RECORDS SUMMARY | 2024-07-12 18:24 | XMS_ITS | Encounter Summary ---
Author Organization [place] Address [address] [place] [address] Care Team Providers Care Legal Practice Manager Name Role Phone Julissa Alvarenga MD Primary Care Provider [phone] Julissa Alvarenga MD Unavailable [phone] Reason for Visit * Reason Onset Date Comments Refill Request 06/16/2024 REFILLS THRU CAR DIOLOGY - NOT PCP Encounter Details Date Type Department Care Team (Late st Contact Info) Description 06/16/2024 MyC Refill [facility] [address] [place] [address] Julissa Alvarenga MD [address] [place] [address] Refill Request (REFILLS THRU CARDIOLOGY - [...] re latives? Once a week 03/11/2024 Attends Hinduism Services Not on file 03/11 Active Member of Clubs or Organizations Not on f ile 03/11/2024 Attends Club or Organization Meetings Not on andrew e 03/11/2024 Marital Status Not on file 03/11/2024 PHQ-2 Answer Date Recorded PHQ-2 Score 0 03/11/2024 [facility] - Occupational Stress [...] in an abandoned building, in an overnight care home, or couch-surfing.) Yes 03/11/2024 Are you [...] Total Score: 5 06/04/19 23 8:18 AM DIRECTOR OF LABORATORY OPERATIONS documented as of this encounter Care Teams Legal Practice Manager Relationship Specialty Start Date End Date Julissa Alvarenga MD [address] [address] PCP - General Family Medicine 12/09/23 Julissa Alvarenga MD [address] [address] Assigned PCP 01/09/24 documented as of this encounter
--- OUTSIDE RECORDS SUMMARY | 2024-07-12 18:24 | XMS_ITS | Encounter Summary ---
Author Organization [place] Address [address] [place] [address] Care Team Providers Care Biodiesel Engine Specialist Name Role Phone Jaycee Patino APRN CREW LEADER GLUING Primary Care Provide r Jaycee Patino APRN, CNP Unavailable [phone] Modesta Guillen MD Unavailable [phone] Reji Max MD Unavailable saharaJaycee vides MD Unavailable [phone] [facility] Unavailable [phone] Modesta Guillen MD Unavailable [phone] Julissa Alvarenga MD Primary Care Provider [phone] Julissa Alvarenga MD Unavailable [phone] Encounter Details Date Type Department Care Team (Late st Contact Info) Description 07/15/2022 [facility] Medical Advice [facility] [place] [address] [facility] [address] 4th [place] [address] Modesta Guillen MD ORTHOPAEDIC SURGERY [address] [address] Social History Tobacco Use Types [...] Coronavirus/COVID-19? No / Unsure 07/08/2022 1:12 PM SPRINKLER DRIVER documented as of this encounter Miscellaneous Notes * Telephone Encounter - Modesta Guillen MD - 07/17/2022 10:58 AM SPRINKLER DRIVER Work letter printed and signed. Ready to be faxed to [place]. Modesta Jefferson MD, [facility] NKLER DRIVER * Telephone Encounter - Minoo Taylor - 07/16/2022 8:29 AM CST Please see patient's request for work letter for employer allowing him to return to work on 07/24/22 without restrictions and advise. Minoo Taylor MBA, ATC NKLER DRIVER documented in this encounter Plan of Treatment Not on file documented as of this encounter Visit Diagnoses Not on filedocumented in this encounter Additional Health Concerns Assessment Noted Time PHQ-9 Depression Total Score: 5 06/04/19 8:18 AM SPRINKLER DRIVER documented as of this encounter Care Teams Biodiesel Engine Specialist Relationship Specialty Start Date End Date Jaycee Patino APRN CREW LEADER GLUING [address] [address] PCP - General Family Medicine 05/31/22 12/08/23 Julissa Alvarenga MD [address] [address] PCP - General Family Medicine 12/09/23 Jaycee Patino APRN [facility] [address] [place] [address] Assigned PCP 06/15/22 09/20/22 Modesta Guillen MD ORTHOPAEDIC SURGERY [address] [place] [address] Assigned Musculoskeletal Provider 07/13/22 06/11/23 Reji Max MD [address] [place] [address] Assigned Surgical Provider 07/13/22 Jaycee Ken MD [address] [place] [address] Assigned PCP 09/21/22 06/11/23 [facility] [address] [place] [address] Assigned PCP 06/12/23 01/08/24 Modesta Guillen MD ORTHOPAEDIC SURGERY [address] [place] [address] Assigned Musculoskeletal Provider 06/20/23 01/08/24 Julissa Alvarenga MD [address] [place] [address] Assigned PCP 01/09/24 documented as of this encounter
--- OUTSIDE RECORDS SUMMARY | 2024-07-12 18:24 | XMS_ITS | Clinical Summary ---
Author Organization [place] Address [address] [place] [address] Care Team Providers Care Surveying Crew Stake Runner Name Role Phone Julissa Alvaregna MD Primary Care Provider [phone] Julissa Alvarenga MD Unavailable [phone] Allergies Active Allergy Reactions Criticality Noted Date [...] Department Care Team Description 06/16/2024 MyC Refill [address] [address] Julissa Alvarenga MD Refill Request [...] re latives? Once a week 03/11/2024 Attends Je[employer] Witness Services Not on file 03/11 Active Member of Clubs or Organizations Not on f ile 03/11/2024 Attends Club or Organization Meetings Not on andrew e 03/11/2024 Marital Status Not on file 03/11/2024 PHQ-2 Answer Date Recorded PHQ-2 Score 0 03/11/2024 [facility] [place] of Occupat ional Health - Occupational Stress [...] in an abandoned building, in an overnight intermediate, or couch-surfing.) Yes 03/11/2024 Are you worried [...] 36.4 C (97.5 F) 05/09/2022 11:43 AM AUTOMOTIVE SERVICE PROFESSIONAL Respiratory Rate 16 07/09/2022 12:20 PM AUTOMOTIVE SERVICE PROFESSIONAL Oxygen Saturation 96% 03/11/2024 11:15 AM CDT [...] facility COLOGUARD(EXACT SCIENCES) Routine 06/17/2022 12:00 PM AUTOMOTIVE SERVICE PROFESSIONAL Special screening for malignant neoplasms, colon HEPATITIS C (HIM EXTERNAL RESULT) Routine 02/15/2022 2:40 PM CDT from Last 3 Months or Most Recently Relevant to Health Maintenance Results * (ABNORMAL) Lipid Profile (RMG) (03/11/2024 11:45 AM CDT) Pathologist [facility] Cholesterol 229(A) 100 - 199 mg/dL [facility] HDL 42 >=40 mg/dL [facility] Triglycerides 121 0 - 149 mg/dL [facility] LDL CALCULATED (RMG) 163(A) 0 - 130 mg/dL [facility] Patient Fasting? Yes [facility] Blood 03/11/2024 11:4 5 AM CDT Julissa Alvarenga MD LAB - NON-[facility] BLOOD LABS F inal Result [facility] [address] [id number] * (ABNORMAL) Basic metabolic panel (03/11/2024 11:41 AM CDT) Pathologist [facility] Sodium 141 135 - 145 mmol/L 03/11/2024 [...] LAB - BLOOD ORDERABLES Final Result LABORATORY [facility] [address], [address] [place] [address], [place] [phone] * COLOGUARD(AGELON ?) (06/17/2022 12:00 PM AUTOMOTIVE SERVICE PROFESSIONAL) COLOGUARD-ABSTRACT Negative Negative 2022 3:03 AM AUTOMOTIVE SERVICE PROFESSIONAL B-Obvious (CLIA #:[id number]) Comment: NEGATIVE TEST RESULT. A negative Cologuard [...] colonoscopy. (Beka Moreno, N Engl J Med 2014;370(14):8136-1810) The normal value (reference range) for this assay is negative. COLOGUARD RE-SCREENING RECOMMENDATION: Periodic colorectal cancer screening is an important part of preventive healthcare for asymptomatic individuals at average risk for colorectal cancer. Following a negative Cologuard result, the [place] Cancer Society and U.S. Multi-Society Task Force screening guidelines recommend a Cologuard re-screening interval of 3 years. References: [place] [employer] Guideline for Colorectal Cancer Screening: https://www.cancer.org/cancer/itdgq-gqnyaf-amyuhw/nzvpfdetw-qyfkvtwdj-wizxbhg/ac s-rec ommendations.html.; Bert DK, Yasmine CR, Marley RuizK, Colorectal Cancer Screening: Recommendations for Physicians and Patients from the U.S. Multi-Society Task Force on Colorectal Cancer Screening , Am J Gastroenterology 2017; 112:8999-2737. TEST DESCRIPTION: Composite algorithmic analysis of stool [...] colonoscopy. (Beka Moreno, N Engl J Med 2014;370(14):4184-4426.) Cologuard may produce a false negative or false positive result (no colorectal cancer or precancerous polyp present at colonoscopy follow up). A negative Cologuard test result does not guarantee the absence of CRC or advanced adenoma (pre-cancer). The current Cologuard screening interval is every 3 years. ([place] Cancer Society and U.S. Multi-Society Task Force). Cologuard performance data in a 10,000 patient pivotal study using colonoscopy as the reference method can be accessed at the following location: www.[employer]/results. Additional description of the Cologuard test process, warnings and precautions can be found at www.cologuard.com. Stool specimen (specimen) 06/17/2022 12:00 PM AUTOMOTIVE SERVICE PROFESSIONAL 06/19/2022 10:25 AM AUTOMOTIVE SERVICE PROFESSIONAL Jaycee Patino APRN CAMERA OPERATOR LABORATORY Final Result Performing Organization Address [facility] Co de Phone Number B-Obvious [address] [phone] B-Obvious (CLIA #:[id number]) [address] [place] [address] * Hepatitis C (HIM External Result) (02/15/2022 2:40 PM CDT) Hep C HIM See Scanned Document Compositence Comment:non reactive 02/15/2022 2:40 PM CDT Patient Reported LAB - HIM EXTERNAL RESULT Final Result Performing Organization Address [facility] Co de Phone Number Compositence [address] [address], [place] [phone] from Last 3 Months or Most Recently Relevant to Health Maintenance Insurance BCBS OUT OF STATE BC OUT OF STATE Care Teams Surveying Crew Stake Runner Relationship Specialty Start Date End Date Julissa Alvarenga MD [address] [place] [address] PCP - General Family Medicine 12/09/23 Julissa Alvarenga MD [address] [place] [address] Assigned PCP 01/09/24
--- OUTSIDE RECORDS SUMMARY | 2024-07-12 18:24 | XMS_ITS | Encounter Summary ---
Author Organization [place] Address [address] [place] [address] Care Team Providers Care Senior Energy Trader Name Role Phone No Ref-Primary, Physician Primary Care Provider Dionne Mayorga MD Unavailable [phone] [facility], [facility] Primary Care Provider Jaycee Patino APRN GIG TENDER Primary Care Provide r Jaycee Patino APRN GIG TENDER Unavailable [phone] Modesta Guillen MD Unavailable Reji Max MD Unavailable Jaycee Ken MD Unavailable [phone] [facility] Unavailable [phone] Modesta Guillen MD Unavailable [phone] Julissa Alvarenga MD Primary Care Provider [phone] Julissa Alvarenga MD Unavailable [phone] Encounter Details Date Type Department Care Team (Late st Contact Info) Description 10/05/2020 MyC Medical Advice [address], [address] [place] [address] Orville Toth CMA Social History [...] on filedocumented in this encounter Care Teams Senior Energy Trader Relationship Specialty Start Date End Date No Ref-Primary, Physician PCP - General 03/07/20 05/08/[address] [address] PCP - General 05/09/22 05/30/22 Jaycee Patino APRN GIG TENDER [address] [place] [address] PCP - General Family Medicine 05/31/22 12/08/23 Julissa Alvarenga MD [address] [place] [address] PCP - General Family Medicine 12/09/23 Dionne Mayorga MD [address] [address] Assigned PCP 02/11/20 05/03/22 Jaycee Patino APRN GIG TENDER [address] [place] [address] Assigned PCP 06/15/22 09/20/22 Modesta Guillen MD ORTHOPAEDIC SURGERY [address] [place] [address] Assigned Musculoskeletal Provider 07/13/22 06/11/23 Reji Max MD [address] [place] [address] Assigned Surgical Provider 07/13/22 Jaycee Ken MD [address] [place] [address] Assigned PCP 09/21/22 06/11/23 [facility] [address] [place] [address] Assigned PCP 06/12/23 01/08/24 Modesta Guillen MD ORTHOPAEDIC SURGERY [facility] [address] [address] Assigned Musculoskeletal Provider 06/20/23 01/08/24 Julissa Alvarenga MD [address] [place] [address] Assigned PCP 01/09/24 documented as of this encounter
--- OUTSIDE RECORDS SUMMARY | 2024-07-12 18:24 | XMS_ITS | Encounter Summary ---
Author Organization [place] Address [address] [place] [address] Care Team Providers Care Financial Coordinator Name Role Phone Jaycee Patino APRN METALLURGICAL ENGINEERING TEACHER Primary Care Provide r Jaycee Patino APRN, CNP Unavailable [phone] Modesta Guillen MD Unavailable [phone] Reji Max MD Unavailable saharaJaycee vides MD Unavailable [phone] [facility] Unavailable [phone] Modesta Guillen MD Unavailable [phone] Julissa Alvarenga MD Primary Care Provider [phone] Julissa Alvarenga MD Unavailable [phone] Encounter Details Date Type Department Care Team (Late st Contact Info) Description 07/22/2022 [facility] [place] [address] [facility] [address] [place] [address] Modesta Guillen MD ORTHOPAEDIC SURGERY [address] [address] Social History Tobacco Use Types [...] Coronavirus/COVID-19? No / Unsure 07/08/2022 1:12 PM CRAFT CENTER DIRECTOR documented as of this encounter Miscellaneous Notes * Telephone Encounter - Minoo Taylor ATC - 07/26/2022 7:35 AM CRAFT CENTER DIRECTOR Patient sent additional telephone encounter regarding this information on 07/25/22. Please see most recent encounter for most up to date information. Minoo Taylor MBA, ATC T CENTER DIRECTOR documented in this encounter Plan of Treatment Not on file documented as of this encounter Visit Diagnoses Not on filedocumented in this encounter Additional Health Concerns Assessment Noted Time PHQ-9 Depression Total Score: 5 06/04/19 8:18 AM CRAFT CENTER DIRECTOR documented as of this encounter Care Teams Financial Coordinator Relationship Specialty Start Date End Date Jaycee Patino APRN METALLURGICAL ENGINEERING TEACHER [address] [facility] [place] [address] PCP - General Family Medicine 05/31/22 12/08/23 Julissa Alvarenga MD [address] [place] [address] PCP - General Family Medicine 12/09/23 Jaycee Patino APRN METALLURGICAL ENGINEERING TEACHER [address] [place] [address] Assigned PCP 06/15/22 09/20/22 Modesta Guillen MD ORTHOPAEDIC SURGERY [address] [place] [address] Assigned Musculoskeletal Provider 07/13/22 06/11/23 Reji Max MD [address] [place] [address] Assigned Surgical Provider 07/13/22 Jaycee Ken MD [address] [place] [address] Assigned PCP 09/21/22 06/11/23 [facility] [address] [place] [address] Assigned PCP 06/12/23 01/08/24 Modesta Guillen MD ORTHOPAEDIC SURGERY [address] [place] [address] Assigned Musculoskeletal Provider 06/20/23 01/08/24 Julissa Alvarenga MD [address] [place] [address] Assigned PCP 01/09/24 documented as of this encounter
--- OUTSIDE RECORDS SUMMARY | 2024-07-12 18:24 | XMS_ITS | Encounter Summary ---
Author Organization [place] Address [address] [place] [address] Care Team Providers Care Parer Name Role Phone [facility] Primary Care Provider Jaycee Patino APRN GEAR HOBBER Primary Care Provide r Jaycee Patino APRN, CNP Unavailable [phone] Modesta Guillen MD Unavailable [phone] Reji Max MD Unavailable Jaycee hernandez MD Unavailable [phone] [facility] Unavailable [phone] Modesta Guillen MD Unavailable [phone] Julissa Alvarenga MD Primary Care Provider [phone] Julissa Alvarenga MD Unavailable [phone] Encounter Details Date Type Department Care Team (Late st Contact Info) Description 05/28/2022 Telephone [facility] [address] [facility] 4th [place] [address] [facility] [address] [place] [address] Social History Tobacco Use Types Packs/Day Years [...] Coronavirus/COVID-19? No / Unsure 05/09/2022 11:31 AM PEDIGREE RESEARCHER documented as of this encounter Miscellaneous Notes [...] week. Additional Comments/information: Encounter forwarded to clinical interviewer to schedule with Dr. Cano or [facility]. Michele Winters ATC GREE RESEARCHER * Telephone Encounter - Natalia Winters ATC - 05/28/2022 4:42 PM CST Note sent to order entry specialist to request imaging for triaging. -NIKOLAS Bautista- Orthopedics GREE RESEARCHER * Telephone Encounter - Young August - 05/28/2022 2:02 PM CST Patient Returning Call Reason for call: Patient went to [facility] for Left femur fracture needing to be seen this week Information relayed to patient: TE sent to clinic Patient has additional questions: Yes What are your questions/concerns: Requesting callback Could we [facility] this [facility] or would you prefer to receive a phone call?: Patient would prefer a phone call Okay to leave a detailed message?: Yes at Other phone number: [phone] GREE RESEARCHER documented in this encounter Plan of Treatment Not on file documented as of this encounter Visit Diagnoses Not on filedocumented in this encounter Care Teams Parer Relationship Specialty Start Date End Date [facility], [address] [address] PCP - General 05/09/22 05/30/22 Jaycee Patino APRN GEAR HOBBER [address] [place] [id number] PCP - General Family Medicine 05/31/22 12/08/23 Julissa Alvarenga MD [address] [place] [id number] PCP - General Family Medicine 12/09/23 Jaycee Patino APRN GEAR HOBBER [address] [place] [id number] Assigned PCP 06/15/22 09/20/22 Modesta Guillen MD ORTHOPAEDIC SURGERY [facility] [address] [address] Assigned Musculoskeletal Provider 07/13/22 06/11/23 [place] [address] [place] [address] Assigned Surgical Provider 07/13/22 Jaycee Ken MD [address] [place] [address] Assigned PCP 09/21/22 06/11/23 [facility] [address] [address] Assigned PCP 06/12/23 01/08/24 Modesta Guillen MD ORTHOPAEDIC SURGERY [address] [place] [address] Assigned Musculoskeletal Provider 06/20/23 01/08/24 Julissa Alvarenga MD [address] [address] Assigned PCP 01/09/24 documented as of this encounter
--- OUTSIDE RECORDS SUMMARY | 2024-07-12 18:24 | XMS_ITS | Encounter Summary ---
Author Organization [place] Address [address] [place] [address] Care Team Providers Care Explosive Operator Supervisor Name Role Phone Jaycee Patino APRN, CNP Primary Care Provide r Jaycee Patino APRN, CNP Unavailable [phone] Modesta Guillen MD Unavailable [phone] Reji Max MD Unavailable Jaycee Ken MD Unavailable [phone] [facility] Unavailable [phone] Modesta Guillen MD Unavailable [phone] Julissa Alvarenga MD Primary Care Provider [phone] Julissa Alvarenga MD Unavailable [phone] Reason for Visit * Reason Onset Date Comments Refill Request 07/01/2022 Encounter Details Date Type Department Care Team (Late st Contact Info) Description 07/01/2022 MyC Refill [facility] [address] [place] [address] Jaycee Patino APRN SELENIUM PLANT OPERATOR [address] [place] [address] Refill Request Social History Tobacco Use Types [...] Coronavirus/COVID-19? No / Unsure 07/04/2022 10:58 AM ASBESTOS ABATEMENT TECHNICIAN documented as of this encounter Plan of Treatment Not on file documented as of this encounter Visit Diagnoses Diagnosis Muscle spasm- Primary Spasm of muscle SOB (shortness of breath) Shortness of breath documented in this encounter Additional Health Concerns Assessment Noted Time PHQ-9 Depression Total Score: 5 06/04/19 8:18 AM ASBESTOS ABATEMENT TECHNICIAN documented as of this encounter Care Teams Explosive Operator Supervisor Relationship Specialty Start Date End Date Jaycee Patino APRN SELENIUM PLANT OPERATOR [address] [place] [address] PCP - General Family Medicine 05/31/22 12/08/23 Julissa Alvarenga MD [address] [place] [address] PCP - General Family Medicine 12/09/23 Jaycee Patino APRN SELENIUM PLANT OPERATOR [address] [place] [address] Assigned PCP 06/15/22 09/20/22 Modesta Guillen MD ORTHOPAEDIC [facility] [address] [address] Assigned Musculoskeletal Provider 07/13/22 06/11/23 Reji Max MD [address] [place] [address] Assigned Surgical Provider 07/13/22 Jaycee Ken MD [address] [place] [address] Assigned PCP 09/21/22 06/11/23 [facility] [address] [place] [address] Assigned PCP 06/12/23 01/08/24 Modesta Guillen MD ORTHOPAEDIC SURGERY [facility] [address] [address] Assigned Musculoskeletal Provider 06/20/23 01/08/24 Julissa Alvarenga MD [address] [place] [address] Assigned PCP 01/09/24 documented as of this encounter
--- OUTSIDE RECORDS SUMMARY | 2024-07-12 18:24 | XMS_ITS | Encounter Summary ---
Author Organization [place] Address [address] [place] [address] Care Team Providers Care Recycler Forklift Driver Truck Driver Name Role Phone Jaycee Patino APRN DRESS FITTER Primary Care Provide r Jaycee Patino APRN, CNP Unavailable [phone] Modesta Guillen MD Unavailable [phone] Reji Max MD Unavailable Jaycee Ken MD Unavailable [phone] [facility] Unavailable [phone] Modesta Guillen MD Unavailable [phone] Julissa Alvarenga MD Primary Care Provider [phone] Julissa Alvarenga MD Unavailable [phone] Reason for Visit * Reason Onset Date Comments Patient Request 07/12/2022 request Call Back 07/12/2022 Encounter Details Date Type Department Care Team (Late st Contact Info) Description 07/12/[address] [facility] [place] [address] [facility] [address] [place] [address] Modesta Guillen MD ORTHOPAEDIC SURGERY [address] [address] Patient Request (request); Call Back Social History [...] Coronavirus/COVID-19? No / Unsure 07/08/2022 1:12 PM CONTINUOUS PICKLING LINE PICKLER documented as of this encounter Miscellaneous Notes * Telephone Encounter - Minoo Taylor - 07/15/2022 5:40 PM CST Patient also sent Cogito message regarding this information. Responded to patient via Cogito to clarify the requested information. Minoo Taylor MBA, ATC INUOUS PICKLING LINE PICKLER * Telephone Encounter - Lucinda Carpenter - [...] [facility] SPORTS MED Travel Screening: Not Applicable INUOUS PICKLING LINE PICKLER * Telephone Encounter - Lili Leonardo - 07/12/2022 1:56 PM CST [facility] Phone Message May a detailed message be left on voicemail: no Reason for Call: Patient was requesting RTW paperwork, but called later in the same day to disregard this message. He will be doing PT and will let us know if he needs anything from the care team. INUOUS PICKLING LINE PICKLER INUOUS PICKLING LINE PICKLER documented in this encounter Plan of Treatment Not on file documented as of this encounter Visit Diagnoses Not on filedocumented in this encounter Additional Health Concerns Assessment Noted Time PHQ-9 Depression Total Score: 5 06/04/19 8:18 AM CONTINUOUS PICKLING LINE PICKLER documented as of this encounter Care Teams Recycler Forklift Driver Truck Driver Relationship Specialty Start Date End Date Jaycee Patino APRN DRESS FITTER [address] [place] [address] PCP - General Family Medicine 05/31/22 12/08/23 Julissa Alvarenga MD [address] [place] [address] PCP - General Family [facility] 12/09/23 Jaycee Patino APRN DRESS FITTER [address] [place] [address] Assigned PCP 06/15/22 09/20/22 Modesta Guillen MD ORTHOPAEDIC SURGERY [facility] [address] [address] Assigned Musculoskeletal Provider 07/13/22 06/11/23 [place] [address] [place] [address] Assigned Surgical Provider 07/13/22 Jaycee Ken MD [address] [place] [address] Assigned PCP 09/21/22 06/11/23 [facility] [address] [place] [address] Assigned PCP 06/12/23 01/08/24 Modesta Guillen MD ORTHOPAEDIC SURGERY [address] [place] [address] Assigned Musculoskeletal Provider 06/20/23 01/08/24 Julissa Alvarenga MD [address] [place] [address] Assigned PCP 01/09/24 documented as of this encounter
--- OUTSIDE RECORDS SUMMARY | 2024-07-12 18:24 | XMS_ITS | Encounter Summary ---
Author Organization [facility] Address [address] [place] [address] Care Team Providers Care Certified Composites Technician Name Role Phone Jaycee Patino APRN GRAVITY PROSPECTING OBSERVER Primary Care Provide r Jaycee Patino APRN, CNP Unavailable [phone] Modesta Guillen MD Unavailable Reji Max MD Unavailable saharaJaycee vides MD Unavailable [phone] [facility] Unavailable [phone] Modesta Guillen MD Unavailable [phone] Julissa Alvarenga MD Primary Care Provider [phone] Julissa Alvarenga MD Unavailable [phone] Encounter Details Date Type Department Care Team (Late st Contact Info) Description 07/30/2022 [facility] Medical Advice [facility] [place] [address] 4th [place] [address] Modesta Guillen MD ORTHOPAEDIC SURGERY [address] [address] Acute pain of left knee [...] Coronavirus/COVID-19? No / Unsure 07/08/2022 1:12 PM PROPERTY MANAGEMENT ASSISTANT documented as of this encounter Miscellaneous Notes * Telephone Encounter - Minoo Taylor ATC - 08/05/2022 2:20 PM CDT Re-faxed forms to [employer] @ [phone]. Responded to patient via [employer]. Minoo Taylor MBA ATC * Telephone Encounter - Kianna Jackson - 07/31/2022 12:43 PM CDT Faxed forms to [employer] at [phone] Forms left in out box while awaiting response from patient Diann Jackson ATC * Telephone Encounter - Modesta Guillen MD - 07/31/2022 11:49 AM CDT Form completed and in provider inbox. Ready to be faxed or emailed per patient request. Modesta Jefferson MD, CAM [facility] * Telephone Encounter - Minoo Taylor ATC - 07/30/2022 8:45 AM CDT Reason for Call: Form, our goal is to have forms completed with 7 days, however, some forms may require a visit or additional information. Type of letter, form or note: Attending Physician Statement Who is the form from?: [employer] [facility] Where did the form come from: Patient or family brought in Desired completion date of form: nii How will form be returned?: Waiting for patient reply Has the patient signed a consent form for release of information (may be included with form)? NO Form was started and place in Provider Basket for provider review/ completion at [facility]. Minoo Taylor MBA, ATC documented in this encounter Plan of Treatment Not on file documented as of this encounter Visit Diagnoses Diagnosis Acute pain of left knee- Primary Insufficiency fracture of left femur with routine healing, subsequent encounter documented in this encounter Additional Health Concerns Assessment Noted Time PHQ-9 Depression Total Score: 5 06/04/19 8:18 AM PROPERTY MANAGEMENT ASSISTANT documented as of this encounter Care Teams Certified Composites Technician Relationship Specialty Start Date End Date Jaycee Patino APRN GRAVITY PROSPECTING OBSERVER [address] [facility] [place] [address] PCP - General Family Medicine 05/31/22 12/08/23 Julissa Alvarenga MD [address] [place] [address] PCP - General Family Medicine 12/09/23 Jaycee Patino APRN GRAVITY PROSPECTING OBSERVER [address] [facility] [place] [address] Assigned PCP 06/15/22 09/20/22 Modesta Guillen MD ORTHOPAEDIC SURGERY [address] [place] [address] Assigned Musculoskeletal Provider 07/13/22 06/11/23 Reji Max MD [address] [place] [address] Assigned Surgical Provider 07/13/22 Jaycee Ken MD [address] [place] [address] Assigned PCP 09/21/22 06/11/23 [facility] [address] [place] [address] Assigned PCP 06/12/23 01/08/24 Modesta Guillen MD ORTHOPAEDIC SURGERY [facility] [address] Assigned Musculoskeletal Provider 06/20/23 01/08/24 Julissa Alvarenga MD [address] [place] [address] Assigned PCP 01/09/24 documented as of this encounter
== END 2024-07-12 18:26 | disposition home or self-care (01) ==
LOC: ED 18:21
PROVIDERS: Emergency Provider Student in an Organized Health Care Education/Training Program
DX: R07.89 Other chest pain (principal)
CPT/HCPCS: 36415; 71046; 80053; 83690; 84484; 85025; 86140; 93005; 99284; 99285

== ENCOUNTER 2024-10-16 00:28 | Emergency (ER) | payer BC, SELFPAY ==
--- OUTSIDE RECORDS SUMMARY | 2024-05-05 11:19 | XMS_ITS | Continuity of Care Document ---
Author Organization [facility] Address [address] [address] [place] [address] Phone Care Team Providers Care Sample Taker Operator Name Role Phone Lg MCGUIRE, Stacie Unavailable Unavailable Advance Directives Directive Yes / No Effective Date File Name No Information Encounters Encounter Description Practice Location Reason(s) For Visit Diagnoses Date Provider Providers Copied on Encounter [facility], [address] [address], [place], [place], [id number], [place] tel:[phone] [facility] No Information 4 Lg Quinones. [address] [facility] [address], [place], [place], [id number] , [place]. tel:[phone] Family History Family Member Type Diagnosis Age At Onset No Information Payers Payer name Insurance type Covered constitution party ID Authoriza tion(s) No Information Social History Type Description Quantity Date Captured Comments Sex Male Smoking Status No Information Chief Complaint And Reason For Visit No Information Reason For Referral Reason For Referral No Information History Of Present Illness Encounter Date Complaint History Of Prese nt Illness No Information Functional Status Date Functional Assessmen t No Information Instructions Date Instruction Additional Infor mation No Information Assessments Type Assessment Date No Information Patient Care Teams Name Effective Dates (start - stop) Status Members No Information
--- OUTSIDE RECORDS SUMMARY | 2024-05-05 11:19 | XMS_ITS | Continuity of Care Document ---
Author Organization [facility] Address [address] [address] [place] [address] Phone Care Team Providers Care Systems Integration Analyst Name Role Phone Lg MCGUIRE, Stacie Unavailable Unavailable Advance Directives Directive Yes / No Effective Date File Name No Information Encounters Encounter Description Practice Location Reason(s) For Visit Diagnoses Date Provider Providers Copied on Encounter [facility], [address] [address], [place], [place], [id number], [place] tel:[phone] [facility] No Information [address] [facility] [address], [place], [place], [id number] , [place]. tel:[phone] Family History Family Member Type Diagnosis Age At Onset No Information Payers Payer name Insurance type Covered democrat ID Authoriza tion(s) No Information Social History [...]
--- OUTSIDE RECORDS SUMMARY | 2024-09-30 12:30 | XMS_ITS | Encounter Summary ---
Author Organization [facility] Address [address] [place] [address] Care Team Providers Care Utility Pipe Layer Name Role Phone Julisas Alvarenga MD Primary Care Provider [phone] Julissa Alvarenga MD Unavailable [phone] Reason for Referral * Diagnostic Imaging Ultrasound (Routine) - Pending Review Specialty Diagnoses / Procedures Referred By Adalgisa clay Referred To Contact Radiology. Diagnoses Umbilical hernia without obstruction and without gangrene Abdominal pain, generalized Procedures US Abdomen Complete Sheree Mccoy DO [address] [place] [address] Phone: tel: fax: Referral ID Status Reason Start Date Expiration Date V isits Requested Visits Authorized [id number] Pending Review 09/30/2024 09/30/2025 1 1 * Consultation (Routine: Next available opening) - Pending Review Specialty Diagnoses / Procedures [facility] Referred To Contact Surgery Diagnoses Umbilical hernia without obstruction and without gangrene Sheree Mccoy DO [address] [place] [address] Phone: tel: fax: Referral ID Status Reason Start Date Expiration Date V isits Requested Visits Authorized [id number] Pending Review 09/30/2024 09/30/2025 1 1 Question Answer Reason for Referral: Hernia Preferred Location: [place] [facility] Surgical Consultants Scheduling Instructions: [facility] will call you to coordinate your care as prescribed by your provider. If you don't hear from a training representative within 2 business days, please call . Comments Please be aware that coverage of these services is subject to the terms and limitations of your health insurance plan. Call member services at your health plan with any benefit or coverage questions. [facility] will call you to coordinate your care as prescribed by your provider. If you don't hear from a training representative within 2 business days, please call . Reason for Visit * Reason Comments Consult Patient has an umbil ical hernia, has had for a few months. Area around belly button is sore after eating; tightness present all day long but is exacerbated by eating / digestion.When patient has bumped that area, her felt a sharp pain. Encounter Details Date Type Department Care Team (Late st Contact Info) Description 09/30/2024 12:30 PM CDT Office Visit [address] [address] Sheree Mccoy DO [address] [place], [place] [address] Umbilical hernia without obstruction and without gangrene (Primary Dx); Abdominal pain, generalized Social History Tobacco Use Types Packs/Day Years Used Date Smoking Tobacco: Never Smokeless Tobacco: Never Tobacco Cessation:Counseling Given: Not Answered Alcohol Use Standard Drinks/Week Comments Yes 0 (1 standard drink = 0.6 oz pur e alcohol) maybe 1 a month Social Connection and Isolation Panel [NHANES] A nswer Date Recorded Frequency of Communication with Friends and Fami ly Not on file 03/11/2024 How often do you get together with friends or re latives? Once a week 03/11/2024 Attends Christian Services Not on file 03/11 Active Member of Clubs or Organizations Not on f ile 03/11/2024 Attends Club or Organization Meetings Not on andrew e 03/11/2024 Marital Status Not on file 03/11/2024 PHQ-2 Answer Date Recorded PHQ-2 Score 0 09/30/2024 [facility] - Occupational Stress [...] before you got money to buy more? Patient declined 0 09/30/2024 Within the past 12 months, d id the food you bought just not last and you didn t have money to get more? Patient declined 09/30/2024 Housing Stability Answer Date Recorded Do you have housing? (Housin g is defined as stable permanent housing and does not include staying outside in a car, in a tent, in an abandoned building, in an overnight chcf, or couch-surfing.) Patient declined 09/30/2024 Are you worried about losing your housing? Patie nt declined 09/30/2024 Financial Resource Strain Answer Date R ecorded Within the past 12 months, h ave you or your family members you live with been unable to get utilities (heat, electricity) when it was really needed? Patient declined 025 Transportation Needs Answer Date Record ed Within the past 12 months, h as lack of transportation kept you from medical appointments, getting your medicines, non-medical meetings or appointments, work, or from getting things that you need? Patient declined 09/30/2024 Sex and Gender Information Value Date Recorded Sex Assigned at Not on file Legal Sex Male 11:54 AM CDT Gender Identity Not on file Sexual Orientation Not on file documented as of this encounter Last Filed Vital Signs Vital Sign Reading Time Taken Comments Blood Pressure 137/87 09/30/2024 12:18 PM CDT Pulse 78 09/30/2024 12:18 PM CDT Temperature - - Respiratory Rate - - Oxygen Saturation 96% 09/30/2024 12: 18 PM CDT Inhaled Oxygen Concentration - - Weight 136.2 kg (300 lb 3.2 oz) 025 12:18 PM CDT Height 171.5 cm (5' 7.5) 09/30/2024 12 :18 PM CDT Body Mass Index 46.32 09/30/2024 12:18 PM CDT documented in this encounter Patient Instructions * Patient Instructions* Sheree Mccoy DO - 09/30/2024 12:30 PM CDT Lactaid documented in this encounter Progress Notes * Sheree Mccoy DO - 09/30/2024 12:30 PM CDT Assessment & Plan Assessment & Plan Umbilical hernia without obstruction and without gangrene -noted on exam today, obstruction or incarceration at this time, though very tender to the touch -patient is feeling a soreness and aching around the area -will refer to Surgery Orders: Adult Gen Surg Supervisor Pipe Manufacture Referral; Future US Abdomen Complete; Future Abdominal pain, generalized -patient is worried that all his symptoms may not be related to his hernia -discussed bloating -hx of veganism, discussed that he may now have dairy intolerance, patient to try lactaid and/or lactose free dairy to see if this helps with his bloating -will order US to ensure there are not other abnormalities on exam -patient aware that this will be uncomfortable due to his tenderness Orders: US Abdomen Complete; Future BMI Estimated body mass index is 46.32 kg/m?? as calculated from the following: Height as of this encounter: 1.715 m (5' 7.5). Weight as of this encounter: 136.2 kg (300 lb 3.2 oz). Patient is trying to change his diet to work on weight loss. Follow-up Return if symptoms worsen or fail to improve. Renetta Banks is a 54 year old, presenting for the following health issues: Consult (Patient has an umbilical hernia, has had for a few months. Area around belly button is sore after eating; tightness present all day long but is exacerbated by eating / digestion.//When patient has bumped that area, her felt a sharp pain. ) History of Present Illness Reason for visit: After a meal, uncomfortable intense bloat and sensitive ( naval area) Symptom onset: More than a month Symptoms include: Tightness in abdominal area, pain around naval after meal Symptom intensity: Severe Symptom progression: Worsening Had these symptoms before: Yes Has tried/received treatment for these symptoms: No What makes it worse: After consuming sweet and or anything with flour What makes it better: Fasting, or eating small amounts of animal protein He is taking medications regularly. Patient that he has a history of umbilical hernia for the last few months. States that the area around the belly button is sore after eating. He states that there is a tightness there all day long that is worsened with digestion. Patient states that when that area is palpated/bumped, he has felt a sharp pain. Patient states that he also feels bloating around the area after eating. Patient is wondering if something he's eating could be a contributing factor. Review of Systems Gastrointestinal: Positive for abdominal pain. Objective BP 137/87 Pulse 78 Ht 1.715 m (5' 7.5) Wt (!) 136.2 kg (300 lb 3.2 oz) SpO2 96% BMI 46.32 kg/m?? Body mass index is 46.32 kg/m??. Physical Exam Constitutional: Appearance: Normal appearance. HENT: Head: Normocephalic and atraumatic. Eyes: Conjunctiva/sclera: Conjunctivae normal. Cardiovascular: Rate and Rhythm: Normal rate and regular rhythm. Heart sounds: Normal heart sounds. No murmur heard. Pulmonary: Effort: Pulmonary effort is normal. No respiratory distress. Breath sounds: Normal breath sounds. Abdominal: Tenderness: There is abdominal tenderness in the right upper quadrant, periumbilical area, left upper quadrant and left lower quadrant. Hernia: A hernia is present. Hernia is present in the umbilical area. Neurological: Mental Status: He is alert. Psychiatric: Thought Content: Thought content normal. Signed Electronically by: Sheree Mccoy DO documented in this encounter Miscellaneous Notes * Addendum Note - Sheree Mccoy DO - 09/30/2024 12:30 PM CDTAddended by: SHEREE MCCOY on: 09/30/2024 12:57 PM Modules accepted: Orders documented in this encounter Plan of Treatment Scheduled Orders Name Type Priority Associated Diagnoses Orde r Schedule US Abdomen Complete Imaging Routine Umbilical hernia without obstruction and without gangrene Abdominal pain, generalized Expected: 09/30/2024 (Approximate), Expires: 09/30/2025 Scheduled Referrals Name Type Priority Associated Diagnoses Orde r Schedule Adult Gen Surg Supervisor Pipe Manufacture Referral Referral Routine: Next available opening Umbilical hernia without obstruction and without gangrene Expected: 09/30/2024 (Approximate), Expires: 09/30/2025 documented as of this encounter Visit Diagnoses Diagnosis Umbilical hernia without obstruction and without gangrene- Primary Abdominal pain, generalized documented in this encounter Additional Health Concerns Assessment Noted Time PHQ-9 Depression Total Score: 5 06/04/19 23 8:18 AM CHISEL TRIMMER documented as of this encounter Care Teams Utility Pipe Layer Relationship Specialty Start Date End Date Julissa Alvarenga MD [address] [address] PCP - General Family Medicine 12/09/23 Julissa Alvarenga MD [address] [address] Assigned PCP 01/09/24 documented as of this encounter
--- OUTSIDE RECORDS SUMMARY | 2024-10-16 00:30 | XMS_ITS | Encounter Summary ---
Author Organization [facility] Address [address] [place] [address] Care Team Providers Care Men'S Furnishings Salesperson Name Role Phone Jaycee Patino APRN SULFURIC ACID PLANT SUPERVISOR Primary Care Provide r Jaycee Patino APRN, CNP Unavailable [phone] Modesta Guillen MD Unavailable [phone] Reji Max MD Unavailable [facility] Unavailable [phone] [facility] Unavailable [phone] Modesta Guillen MD Unavailable [phone] Julissa Alvarenga MD Primary Care Provider [phone] Julissa Alvarenga MD Unavailable [phone] Encounter Details Date Type Department Care Team (Late st Contact Info) Description 07/04/2022 [facility] [place] Medical Advice [facility] [place] [address] [place] [address] Flor Verma Social History Tobacco [...] Coronavirus/COVID-19? No / Unsure 07/04/2022 10:58 AM TECHNOLOGY MANAGER documented as of this encounter Plan of Treatment Not on file documented as of this encounter Visit Diagnoses Not on filedocumented in this encounter Additional Health Concerns Assessment Noted Time PHQ-9 Depression Total Score: 5 06/04/19 8:18 AM TECHNOLOGY MANAGER documented as of this encounter Care Teams Men'S Furnishings Salesperson Relationship Specialty Start Date End Date Jaycee Patino APRN SULFURIC ACID PLANT SUPERVISOR [address] [place] [address] PCP - General Family Medicine 05/31/22 12/08/23 Julissa Alvarenga MD [address] [place] [address] PCP - General Family Medicine 12/09/23 Jaycee Patino APRN SULFURIC ACID PLANT SUPERVISOR [address] [place] [address] Assigned PCP 06/15/22 09/20/22 Modesta Guillen MD ORTHOPAEDIC SURGERY [facility] [address] Assigned Musculoskeletal Provider 07/13/22 06/11/23 Reji Max MD [address] [place], [place] [address] Assigned Surgical Provider 07/13/22 Jaycee Ken MD [address] [place] [address] Assigned PCP 09/21/22 06/11/23 [facility] [address] [address] Assigned PCP 06/12/23 01/08/24 Modesta Guillen MD ORTHOPAEDIC SURGERY [address] [place] [address] Assigned Musculoskeletal Provider 06/20/23 01/08/24 Julissa Alvarenga MD [address] [address] Assigned PCP 01/09/24 documented as of this encounter
--- OUTSIDE RECORDS SUMMARY | 2024-10-16 00:30 | XMS_ITS | Encounter Summary ---
Author Organization [place] Address [address] [place] [address] Care Team Providers Care Marketing Account Executive Name Role Phone Jaycee Patino APRN [facility] Primary Care Provide r Modesta Guillen MD Unavailable Reji Max MD Unavailable [facility] Unavailable [phone] [facility] Unavailable [phone] Modesta Guillen MD Unavailable Julissa Alvarenga MD Primary Care Provider [phone] Julissa Alvarenga MD Unavailable [phone] Encounter Details Date Type Department Care Team (Late st Contact Info) Description 02/25/2023 [facility] Medical Advice [facility] [address] 4th [place] [address] Dayami Calloway, NIKOLAS Social History [...] Total Score: 5 06/04/19 23 8:18 AM TIRE CORD WEAVER documented as of this encounter Care Teams Marketing Account Executive Relationship Specialty Start Date End Date Jaycee Patino APRN CNP [address] [place] [address] PCP - General Family Medicine 05/31/22 12/08/23 Julissa Alvarenga MD [address] [place] [address] PCP - General Family Medicine 12/09/23 Modesta Guillen MD ORTHOPAEDIC SURGERY [address] [place] [address] Assigned Musculoskeletal Provider 07/13/22 06/11/23 [place] [address] [place] [address] Assigned Surgical Provider 07/13/22 Jaycee Ken MD [address] [place] [address] Assigned PCP 09/21/22 06/11/23 [facility] [address] [place] [address] Assigned PCP 06/12/23 01/08/24 Modesta Guillen MD ORTHOPAEDIC SURGERY [address] [place] [address] Assigned Musculoskeletal Provider 06/20/23 01/08/24 Julissa Alvarenga MD [address] [address] Assigned PCP 01/09/24 documented as of this encounter
--- OUTSIDE RECORDS SUMMARY | 2024-10-16 00:30 | XMS_ITS | Encounter Summary ---
Author Organization [place] Address [address] [place] [address] Care Team Providers Care Hadoop Analyst Name Role Phone Jaycee Patino APRN CHAIR MAKER Primary Care Provide r Jaycee Patino APRN, CNP Unavailable [phone] Modesta Guillen MD Unavailable [phone] Reji Max MD Unavailable saharaJaycee vides MD Unavailable [phone] [facility] Unavailable [phone] Modesta Guillen MD Unavailable [phone] Julissa Alvarenga MD Primary Care Provider [phone] Julissa Alvarenga MD Unavailable [phone] Encounter Details Date Type Department Care Team (Late st Contact Info) Description 07/25/2022 [facility] Medical Advice [facility] [place] [address] [facility] [address] 4th [place] [address] Modesta Guillen MD ORTHOPAEDIC SURGERY [address] [address] Social History Tobacco Use Types [...] Coronavirus/COVID-19? No / Unsure 07/08/2022 1:12 PM MANAGER ELECTRICAL documented as of this encounter Plan of Treatment Not on file documented as of this encounter Visit Diagnoses Not on filedocumented in this encounter Additional Health Concerns Assessment Noted Time PHQ-9 Depression Total Score: 5 06/04/19 8:18 AM MANAGER ELECTRICAL documented as of this encounter Care Teams Hadoop Analyst Relationship Specialty Start Date End Date Jaycee Patino APRN CHAIR MAKER [address] [place] [address] PCP - General Family Medicine 05/31/22 12/08/23 Julissa Alvarenga MD [address] [place] [address] PCP - General Family Medicine 12/09/23 Jaycee Patino APRN CHAIR MAKER [address] [place] [address] Assigned PCP 06/15/22 09/20/22 Modesta Guillen MD ORTHOPAEDIC SURGERY [facility] [address] Assigned Musculoskeletal Provider 07/13/22 06/11/23 Reji Max MD [address] [place] [address] Assigned Surgical Provider 07/13/22 Jaycee Ken MD [address] [place] [address] Assigned PCP 09/21/22 06/11/23 [facility] [address] [place] [address] Assigned PCP 06/12/23 01/08/24 Modesta Guillen MD ORTHOPAEDIC SURGERY [facility] [address] [address] Assigned Musculoskeletal Provider 06/20/23 01/08/24 Julissa Alvarenga MD [address] [place] [address] Assigned PCP 01/09/24 documented as of this encounter
--- OUTSIDE RECORDS SUMMARY | 2024-10-16 00:30 | XMS_ITS | Encounter Summary ---
Author Organization [place] Address [address] [place] [address] Care Team Providers Care Client Strategist Name Role Phone Jaycee Patino APRN FINAL CLEANER Primary Care Provide r Jaycee Patino APRN, CNP Unavailable [phone] Modesta Guillen MD Unavailable [phone] Reji Max MD Unavailable Jaycee Ken MD Unavailable [phone] [facility] Unavailable [phone] Modesta Guillen MD Unavailable [phone] Julissa Alvarenga MD Primary Care Provider [phone] Julissa Alvarenga MD Unavailable [phone] Encounter Details Date Type Department Care Team (Late st Contact Info) Description 07/25/2022 [facility] Medical Advice [facility] [address] [place] [address] Jaycee Ken MD [address] [place] [address] Social History Tobacco Use Types Packs/Day [...] Coronavirus/COVID-19? No / Unsure 07/08/2022 1:12 PM BELT KNIFE FEEDER documented as of this encounter Plan of Treatment Not on file documented as of this encounter Visit Diagnoses Not on filedocumented in this encounter Additional Health Concerns Assessment Noted Time PHQ-9 Depression Total Score: 5 06/04/19 8:18 AM BELT KNIFE FEEDER documented as of this encounter Care Teams Client Strategist Relationship Specialty Start Date End Date Jaycee Patino APRN FINAL CLEANER [address] [place] [address] PCP - General Family Medicine 05/31/22 12/08/23 Julissa Alvarenga MD [address] [place] [address] PCP - General Family Medicine 12/09/23 Jaycee Patino APRN FINAL CLEANER [address] [place] [address] Assigned PCP 06/15/22 09/20/22 Modesta Guillen MD ORTHOPAEDIC SURGERY [facility] [address] [address] Assigned Musculoskeletal Provider 07/13/22 06/11/23 Reji Max MD [address] [place] [address] Assigned Surgical Provider 07/13/22 Jaycee Ken MD [address] [place] [address] Assigned PCP 09/21/22 06/11/23 [facility] [address] [place] [address] Assigned PCP 06/12/23 01/08/24 Modesta Guillen MD ORTHOPAEDIC SURGERY [facility] [address] [address] Assigned Musculoskeletal Provider 06/20/23 01/08/24 Julissa Alvarenga MD [address] [place] [address] Assigned PCP 01/09/24 documented as of this encounter
--- OUTSIDE RECORDS SUMMARY | 2024-10-16 00:30 | XMS_ITS | Encounter Summary ---
Author Organization [facility] Address [address] [place] [address] Care Team Providers Care Multiskill Operator Name Role Phone Jaycee Patino APRN STUD DRIVER Primary Care Provide r Jaycee Patino APRN, CNP Unavailable [phone] Modesta Guillen MD Unavailable Reji Max MD Unavailable saharaJaycee vides MD Unavailable [phone] [facility] Unavailable [phone] Modesta Guillen MD Unavailable [phone] Julissa Alvarenga MD Primary Care Provider [phone] Julissa Alvarenga MD Unavailable [phone] Encounter Details Date Type Department Care Team (Late st Contact Info) Description 07/30/2022 [facility] [place] [address] 4th [place] [address] Modesta Guillen MD ORTHOPAEDIC SURGERY [address] [address] Acute pain of left knee [...] Coronavirus/COVID-19? No / Unsure 07/08/2022 1:12 PM DIGITAL CIRCUIT DESIGNER documented as of this encounter Miscellaneous Notes * Telephone Encounter - Minoo Taylor ATC - 08/05/2022 2:20 PM CDT Re-faxed forms to [employer] @ [phone]. Responded to patient via [employer]. Minoo Taylor MBA ATC * Telephone Encounter - Kianna Jackson - 07/31/2022 12:43 PM CDT Faxed forms to [employer] [facility] at [phone] Forms left in out box while awaiting response from patient Diann Jackson ATC * Telephone Encounter - Modesta Guillen MD - 07/31/2022 11:49 AM CDT Form completed and in provider inbox. Ready to be faxed or emailed per patient request. Modesta Jefferson MD, CAM [facility] * Telephone Encounter - Minoo Taylor ATC - 07/30/2022 8:45 AM CDT Reason for Call: Form, our goal is to have forms completed with 7 days, however, some forms may require a visit or additional information. Type of letter, form or note: Attending Physician Statement Who is the form from?: [facility] Where did the form come from: Patient or family brought in Desired completion date of form: nii How will form be returned?: Waiting for patient reply Has the patient signed a consent form for release of information (may be included with form)? NO Form was started and place in Provider Basket for provider review/ completion at [facility]. Minoo Taylor MBA, ATC documented in this encounter Plan of Treatment Not on file documented as of this encounter Visit Diagnoses Diagnosis Acute pain of left knee- Primary Insufficiency fracture of left femur with routine healing, subsequent encounter documented in this encounter Additional Health Concerns Assessment Noted Time PHQ-9 Depression Total Score: 5 06/04/19 8:18 AM DIGITAL CIRCUIT DESIGNER documented as of this encounter Care Teams Multiskill Operator Relationship Specialty Start Date End Date Jaycee Patino APRN STUD DRIVER [address] [facility] [address] PCP - General Family Medicine 05/31/22 12/08/23 Julissa Alvarenga MD [address] [place] [address] PCP - General Family Medicine 12/09/23 Jaycee Patino APRN STUD DRIVER [address] [place] [address] Assigned PCP 06/15/22 09/20/22 Modesta Guillen MD ORTHOPAEDIC SURGERY [address] [place] [address] Assigned Musculoskeletal Provider 07/13/22 06/11/23 Reji Max MD [address] [place] [address] Assigned Surgical Provider 07/13/22 Jaycee Ken MD [address]09 [place] [address] Assigned PCP 09/21/22 06/11/23 [facility] [address] [place] [address] Assigned PCP 06/12/23 01/08/24 Modesta Guillen MD ORTHOPAEDIC SURGERY [facility] [address] [address] Assigned Musculoskeletal Provider 06/20/23 01/08/24 Julissa Alvarenga MD [address] [facility] [place] [address] Assigned PCP 01/09/24 documented as of this encounter
--- OUTSIDE RECORDS SUMMARY | 2024-10-16 00:30 | XMS_ITS | Clinical Summary ---
Author Organization [facility] Address [address] [place] [address] Care Team Providers Care Operations Administrative Assistant Name Role Phone Lupis Juan Primary Care Provider Allergies Active Allergy Reactions Criticality Noted Date Comments Iodine Hives High 06/30/2007 while in surgery as a child got hives from this doesn't remember the exact name for IODINE Medications albuterol HFA (ProAir HFA) 90 mcg/actuation inhalerIndication s:Subacute cough Inhale 1-2 Puffs by mouth every 4 hours if needed for Wheezing. 8.6 g 4 Active amiodarone 200 mg tabletIndications :New onset atrial fibrillation (HC) Take 1 Tablet (200 mg) by mouth once daily. 60 Tablet 5 Active rivaroxaban (Xarelto) 20 mg tabletIndications :New onset atrial fibrillation (HC) Take 1 Tablet (20 mg) by mouth once daily with evening meal. 90 Tablet 3 5 Active rivaroxaban (Xarelto) 20 mg tabletIndications :New onset atrial fibrillation (HC) Take 1 Tablet (20 mg) by mouth once daily with evening meal. 90 Tablet 3 5 09/24/19 25 Discontinu ed(Reorder (E-cancel not sent)) Active Problems Problem Noted Date Diagnosed Date Paroxysmal atrial fibrillation 05/22/2023 BPH (benign prostatic hypertrophy) 03/22/2013 Degenerative arthritis of left knee 08/12/2008 Encounters Date Type Department Care Team Description 09/23/2024 Refill [facility] [address] [place] [address] Marbella Lester NP Refill Request (Amiodarone) 09/22/2024 Telephone [facility] [address] [place] [phone] Niko Melissa MD Procedure Scheduling 09/20/2024 Telephone [facility] [address] [place] [phone] Niko Melissa MD Procedure Questions 09/13/2024 4:30 PM CDT Office Visit [facility] [address] [facility] [address] [place] [phone] Niko Melissa MD Follow Up (F/U. Pt states feeling good, no recent or current cardiac symptoms. Does have a list of questions ) 09/13/2024 Travel 09/12/2024 Refill [facility] [address] [address] Marbella Lester NP Refill Request (Xarelto) 09/10/2024 Travel from Last 3 Months Immunizations Immunization Administration Dates Next Due COVID-19 vaccine (Moderna 100mcg/0.5mL) PF, MDV 10/20/2020,08/04/2020 COVID-19 vaccine (Pfizer-Bio NTech 30mcg/0.3mL) 12YO+ BIVALENT PF, MDV 02/15/2022 Influenza Virus, Unspecified 06/03/2022,02/29/20 20 Influenza, IIV4 (=>6mos) MDV 02/29/2020 Influenza,CCIIV4 PRESERV FREE 06/03/2022 MMR 01/02/2016 Td (Age >=7 Years) 12/19/2004 Td, Preservative Free (age >= 7 Years) 5 Tdap 01/02/2016 Family History Medical History Relation Name Comments Diabetes Father Heart Disease Father [place] times 3 Hypertension Father Other Father stomach ulcers Other Mother stomach ulcers Stroke Mother Relation Name Status Comments Father Mother Social History Tobacco Use Types Packs/Day Years Used Date Smoking Tobacco: Never Smokeless Tobacco: Never Tobacco Cessation:Counseling Given: Yes Alcohol Use Standard Drinks/Week Comments Not Currently 0 (1 standard drink = 0.6 oz pure alcohol) every now and then only every few months PHQ-2 Answer Date Recorded PHQ-2 TOTAL SCORE 0 03/22/2022 Social Connections Answer Date Recorded Frequency of Communication with Friends and Fami ly 0 05/20/2022 Financial Resource Strain Answer Date R ecorded Difficulty of Paying Living Expenses 3 05/20/2022 Difficulty of Paying Living Expenses Not on file 05/20/2022 Food Insecurity Answer Date Recorded Worried About Running Out of Food in the Last Ye ar 1 05/20/2022 Transportation Needs Answer Date Record ed Lack of Transportation (Medical) 1 05/20/2022 Housing Stability Answer Date Recorded Unable to Pay for Housing in the Last Year 1 05/20/2022 Sex and Gender Information Value Date Recorded Sex Assigned at Not on file Legal Sex Male 5:23 AM CAMP HEAD COUNSELOR Gender Identity Not on file Sexual Orientation Not on file Occupation Industry Job Start Date Job End Date Post Not on file Not on file Not on file Obstetrics History Last Filed Vital Signs Vital Sign Reading Time Taken Comments Blood Pressure 146/98 09/13/2024 4:21 PM CDT Pulse 76 09/13/2024 4:21 PM CDT Temperature 37.2 C (98.9 F) 05/22/2023 10:25 AM CAMP HEAD COUNSELOR Respiratory Rate 18 04/04/2023 1:49 PM CAMP HEAD COUNSELOR Oxygen Saturation 96% 09/13/2024 4:21 PM CDT Inhaled Oxygen Concentration - - Weight 135.9 kg (299 lb 11.2 oz) 09/13/2024 4:21 PM CDT Height 170.2 cm (5' 7) 09/13/2024 4:21 PM CDT Body Mass Index 46.94 09/13/2024 4:21 PM CDT Plan of Treatment Upcoming Encounters Date Type Department Care Team (Late st Contact Info) Description 10/29/2024 9:30 AM CDT Ancillary Procedure [address] [place] [address] 11/04/2024 11:00 AM CDT Appointment [facility] [address] [place] [address] Niko Melissa MD [address] [facility] [address] [place] [address] Health Maintenance Due Date Last Done Comments HIV for age 15-65 1984 Hepatitis B series for 19+ ( 1 of 3 - 19+ 3-dose series) 1988 Pneumococcal series for age 50+ (1 of 2 - PCV) 1988 Zoster (shingles) series for age 50+ (1 of 2) 08/15/2019 Depression screening for age 12+ 03/22/2023 03/22/2022, 09/26/2020, 06/02/2019, Additional history exists COVID-19 vaccine series ( season) 2024 02/15/2022, 05/17/2021, 10/20/2020, Additional history exists Influenza Vaccine (Season Ended) 2025 06/03/2022, 06/03/2022, 02/29/2020, Additional history exists BMI (ht and wt on same day) for age 18+ 09/13/2025 09/13/2024, 05/22/2023, 03/10/2023, Additional history exists Tetanus booster 01/01/2026 01/02/2016, 07/2004, 12/19/2004 Lipids for age 45-75 03/12/2028 03/12/2023, 09/26/2020, 11/29/2013 Colonoscopy through age 75 08/31/2033 09/01/2023 Tdap Completed 01/02/2016 Hepatitis C screening for ag e 18-79 Completed 02/15/2022 Procedures Procedure Name Priority Date/Time Associated Diagnosis Comments EKG 12 LEAD Routine 09/13/2024 4:12 PM CDT Paroxysmal atrial fibrillation (HC) COLONOSCOPY SCREENING Routine 09/01/2023 8:19 AM CDT Screening for colon cancer LIPID PANEL Routine 03/12/2023 3:30 PM CDT New onset atrial fibrillation (HC) ANTI HCV Routine 02/15/2022 11:09 AM CDT Need for hepatitis C screening test from Last 3 Months or Most Recently Relevant to Health Maintenance Results * EKG 12 LEAD (09/13/2024 4:12 PM CDT) Interpretation Normal sinus rhythm Left axis deviation Abnormal ECG When compared with ECG of 04-Apr-2023 12:58, No significant change was found Ventricular Rate 76 BPM Atrial Rate 76 BPM P-R Interval 204 ms QRS Duration 106 ms QT 394 ms QTc 443 ms P Castine 58 degrees R Castine -48 degrees T Castine 46 degrees 09/13/2024 4:12 PM CDT 09/20/2024 12:37 PM CDT Niko Melissa MD EKG ORD Fin al Result * (ABNORMAL) LIPID PANEL (03/12/2023 3:30 PM CDT) CHOLESTEROL,TOTAL 210(H) 100 - 199 mg/dL 03/13/2023 8:05 AM CDT [facility] [employer] [facility] Comment: Cholesterol, Total Reference Ranges Desirable <200 mg/dL Borderline 200-239 mg/dL High >=240 mg/dL TRIGLYCERIDES 128 <150 mg/dL 03/13/2023 8:05 AM CDT [facility] [employer] [facility] HDL CHOLESTEROL 45 >40 mg/dL 8:05 AM CDT [facility] NON-HDL CHOLESTEROL 165(H) <145 mg/dl 03/13/2023 8:05 AM CDT [facility] [employer] CHOL/HDL RATIO 4.67(H) <4.50 03/13/2023 8:05 AM CDT [facility] LDL CHOLESTEROL 139(H) <=130 mg/dL 03/13/2023 8:05 AM CDT [facility] [employer] VLDL CHOLESTEROL 26 <=30 mg/dL 03/13/2023 8:05 AM CDT [facility] PROVIDER ORDERED STATUS RANDOM 03/13/2023 8:05 AM CDT [facility] Blood BLOOD SPECIMEN / Unknown Venipuncture / Unknown 03/12/2023 3:30 PM CDT 03/12/2023 3:31 PM CDT us Reagan Onofre MD CHEMISTRY Final Result [facility] [address] [place] [address], * ANTI HCV (02/15/2022 11:09 AM CDT) HEPATITIS C ANTIBODY Non-React augusta Non-React augusta 02/15/2022 8:18 PM CDT [facility] Comment:Antibodies to HCV no t detected; does not exclude the possibility of exposure to HCV. Blood BLOOD SPECIMEN / Unknown Venipuncture / Unknown 02/15/2022 11:09 AM CDT 02/15/2022 11:09 AM CDT us Lupis AYON SEND OUTS Final R esult [facility] [address] [place] [address], from Last 3 Months or Most Recently Relevant to Health Maintenance Insurance [employer] [place] Advance Directives * Full Code (Latest Code Status on File) Date Activated Date Inactivated Comments 04/04/2023 1:02 PM 04/04/2023 4:48 PM Question Answer Comments Code Status Discussion: Other Care Teams Operations Administrative Assistant Relationship Specialty Start Date End Date Lupis Juan PA [address] [place] [address] PCP - General Family Practice 10/31/15
--- OUTSIDE RECORDS SUMMARY | 2024-10-16 00:31 | XMS_ITS | Encounter Summary ---
Author Organization [facility] Address [address] [place] [address] Care Team Providers Care Mix House Operator Name Role Phone No Ref-Primary, Physician Primary Care Provider Dionne Mayorga MD Unavailable [phone] [facility] Primary Care Provider Jaycee Patino APRN SECURITY CLERK Primary Care Provide r Jaycee Patino APRN SECURITY CLERK Unavailable [phone] Modesta Guillen MD Unavailable Reji Max MD Unavailable Jaycee Ken MD Unavailable [phone] [facility] Unavailable [phone] Modesta Guillen MD Unavailable [phone] Julissa Alvarenga MD Primary Care Provider [phone] Julissa Alvarenga MD Unavailable [phone] Encounter Details Date Type Department Care Team (Late st Contact Info) Description 10/05/2020 [facility] Medical Advice [address], [address] [place] [address] Orville Toth CMA Social History [...] on filedocumented in this encounter Care Teams Mix House Operator Relationship Specialty Start Date End Date No Ref-Primary, Physician PCP - General 03/07/20 05/08/[address] [address] PCP - General 05/09/22 05/30/22 Jaycee Patino APRN SECURITY CLERK [address] [place] [address] PCP - General Family Medicine 05/31/22 12/08/23 Julissa Alvarenga MD [address] [place] [address] PCP - General Family Medicine 12/09/23 Dionne Mayorga MD [address] [address] Assigned PCP 02/11/20 05/03/22 Jaycee Patino APRN SECURITY CLERK [address] [place] [address] Assigned PCP 06/15/22 09/20/22 Modesta Guillen MD ORTHOPAEDIC SURGERY [address] [place] [address] Assigned Musculoskeletal Provider 07/13/22 06/11/23 Reji Max MD [address] [place] [address] Assigned Surgical Provider 07/13/22 Jaycee Ken MD [address] [place] [address] Assigned PCP 09/21/22 06/11/23 [facility] [address] [place] [address] Assigned PCP 06/12/23 01/08/24 Modesta Guillen MD ORTHOPAEDIC SURGERY [facility] [address] [address] Assigned Musculoskeletal Provider 06/20/23 01/08/24 Julissa Alvarenga MD [address] [place] [address] Assigned PCP 01/09/24 documented as of this encounter
--- OUTSIDE RECORDS SUMMARY | 2024-10-16 00:31 | XMS_ITS | Encounter Summary ---
Author Organization [facility] Address [address] [place] [address] Care Team Providers Care Director Sales Support Name Role Phone Julissa Alvarenga MD Primary Care Provider [phone] Julissa Alvarenga MD Unavailable [phone] Reason for Visit * Reason Onset Date Comments Refill Request 09/24/2024 Encounter Details Date Type Department Care Team (Late st Contact Info) Description 09/24/2024 MyC Refill [facility] [address] [place] [address] Julissa Alvarenga MD [address] [place] [address] Refill Request Social History Tobacco Use Types [...] re latives? Once a week 03/11/2024 Attends Sabianism Services Not on file 03/11 Active Member of Clubs or Organizations Not on f ile 03/11/2024 Attends Club or Organization Meetings Not on andrew e 03/11/2024 Marital Status Not on file 03/11/2024 PHQ-2 Answer Date Recorded PHQ-2 Score 0 03/11/2024 [facility] - Occupational Stress Questionnaire Answer Date Recorded [...] in an abandoned building, in an overnight residential, or couch-surfing.) Yes 03/11/2024 Are you worried [...] on file documented as of this encounter Miscellaneous Notes * Telephone Encounter - Kayley Page LPN - 09/24/2024 3:35 PM CD[facility] written by cardiology was picked up today. Refill request removed. Kayley Hernandez documented in this encounter Plan of Treatment Not on file documented as of this encounter Visit Diagnoses Not on filedocumented in this encounter Additional Health Concerns Assessment Noted Time PHQ-9 Depression Total Score: 5 06/04/19 23 8:18 AM SAWMILL WORKER documented as of this encounter Care Teams Director Sales Support Relationship Specialty Start Date End Date Julissa Alvarenga MD [address] [address] PCP - General Family Medicine 12/09/23 Julissa Alvarenga MD [address] [address] Assigned PCP 01/09/24 documented as of this encounter
--- OUTSIDE RECORDS SUMMARY | 2024-10-16 00:31 | XMS_ITS | Encounter Summary ---
Author Organization [facility] Address [address] [place] [address] Care Team Providers Care Quilt Sewer Name Role Phone [facility] Primary Care Provider Jaycee Patino APRN RADIOLOGICAL EQUIPMENT SPECIALIST Primary Care Provide r Jaycee Patino APRN, CNP Unavailable [phone] Modesta Guillen MD Unavailable [phone] Reji Max MD Unavailable saharaJaycee vides MD Unavailable [phone] [facility] Unavailable [phone] Modesta Guillen MD Unavailable [phone] Julissa Alvarenga MD Primary Care Provider [phone] Julissa Alvarenga MD Unavailable [phone] Encounter Details Date Type Department Care Team (Late st Contact Info) Description 05/28/2022 Telephone [facility] [address] [facility] 4th [place] [address] [facility] [address] [place] [address] Social History Tobacco Use Types Packs/Day Years [...] re latives? Once a week 03/11/2024 Attends Anabaptist Services Not on file 03/11 Active Member of Clubs or Organizations Not on f ile 03/11/2024 Attends Club or Organization Meetings Not on andrew e 03/11/2024 Marital Status Not on file 03/11/2024 PHQ-2 Answer Date Recorded PHQ-2 Score 0 03/11/2024 [facility]at [facility] - Occupational Stress [...] Answer Date Recorded Do you have housing? (Jasonin g is defined as stable permanent housing and does not include staying outside in a car, in a tent, in an abandoned building, in an overnight fpc, or couch-surfing.) Yes 03/11/2024 Are you worried [...] Coronavirus/COVID-19? No / Unsure 07/08/2022 1:12 PM SANDBLAST OR SHOTBLAST EQUIPMENT TENDER documented as of this encounter Miscellaneous Notes [...] 1 week. Additional Comments/information: Encounter forwarded to clinic licensed practical nurse to schedule with Dr. Cano or [facility]. Michele Winters ATC BLAST OR SHOTBLAST EQUIPMENT TENDER * Telephone Encounter - Natalia Winters ATC - 05/28/2022 4:42 PM CST Note sent to radiological equipment specialist to request imaging for triaging. -NIKOLAS Bautista- Orthopedics BLAST OR SHOTBLAST EQUIPMENT TENDER * Telephone Encounter - Young Cristy - 05/28/2022 2:02 PM CST Patient Returning Call Reason for call: Patient went to [facility] for Left femur fracture needing to be seen this week Information relayed to patient: TE sent to clinic Patient has additional questions: Yes What are your questions/concerns: Requesting callback Could we send this information to you in MyChart or would you prefer to receive a phone call?: Patient would prefer a phone call Okay to leave a detailed message?: Yes at Other phone number: [phone] BLAST OR SHOTBLAST EQUIPMENT TENDER documented in this encounter Plan of Treatment Not on file documented as of this encounter Visit Diagnoses Not on filedocumented in this encounter Care Teams Quilt Sewer Relationship Specialty Start Date End Date [facility], [address] [address] PCP - General 05/09/22 05/30/22 Jaycee Patino APRN RADIOLOGICAL EQUIPMENT SPECIALIST [address] [place] [address] PCP - General Family Medicine 05/31/22 12/08/23 Julissa Alvarenga MD [address] [place] [address] PCP - General Family Medicine 12/09/23 Jaycee Patino APRN RADIOLOGICAL EQUIPMENT SPECIALIST [address] [facility] [place] [address] Assigned PCP 06/15/22 09/20/22 Modesta Guillen MD ORTHOPAEDIC SURGERY [facility] [address] [address] Assigned Musculoskeletal Provider 07/13/22 06/11/23 Reji Max MD [address] [place] [address] Assigned Surgical Provider 07/13/22 Jaycee Ken MD [address] [place] [address] Assigned PCP 09/21/22 06/11/23 [facility] [address] [address] Assigned PCP 06/12/23 01/08/24 Modesta Guillen MD ORTHOPAEDIC SURGERY [address] [place] [address] Assigned Musculoskeletal Provider 06/20/23 01/08/24 Julissa Alvarenga MD [address] [address] Assigned PCP 01/09/24 documented as of this encounter
--- OUTSIDE RECORDS SUMMARY | 2024-10-16 00:31 | XMS_ITS | Encounter Summary ---
Author Organization [place] Address [address] [place] [address] Care Team Providers Care Barber Shop Operator Name Role Phone Jacyee Patino APRN LEATHER WORKER Primary Care Provide r Jaycee Patino APRN, CNP Unavailable [phone] Modesta Guillen MD Unavailable [phone] Reji Max MD Unavailable Jaycee Ken MD Unavailable [phone] [facility] Unavailable [phone] Modesta Guillen MD Unavailable [phone] Julissa Alvarenga MD Primary Care Provider [phone] Julissa Alvarenga MD Unavailable [phone] Reason for Visit * Reason Onset Date Comments Patient Request 07/12/2022 request Call Back 07/12/2022 Encounter Details Date Type Department Care Team (Late st Contact Info) Description 07/12/2022 Telephone [facility] [place] [address] [facility] [address] [place] [address] Modesta Guillen MD ORTHOPAEDIC SURGERY [address] [id number] Patient Request (request); Call Back Social History [...] re latives? Once a week 03/11/2024 Attends Orthodox Services Not on file 03/11 Active Member of Clubs or Organizations Not on f ile 03/11/2024 Attends Club or Organization Meetings Not on andrew e 03/11/2024 Marital Status Not on file 03/11/2024 PHQ-2 Answer Date Recorded PHQ-2 Score 0 03/11/2024 [facility] [place] of Occupat ional Health - Occupational Stress [...] in an abandoned building, in an overnight assisted, or couch-surfing.) Yes 03/11/2024 Are you worried [...] Coronavirus/COVID-19? No / Unsure 07/08/2022 1:12 PM SHORE WORKER documented as of this encounter Miscellaneous Notes * Telephone Encounter - Minoo Taylor - 07/15/2022 5:40 PM CST Patient also sent Family[employer] message regarding this information. Responded to patient via Family[employer] to clarify the requested information. Minoo Taylor MBA, ATC E WORKER * Telephone Encounter - Lucinda Carpenter - 07/15/2022 4:14 PM CST [facility] Phone Message May a detailed message be left on voicemail: yes Reason for Call: Other: Pt Ordered the hinged brace for knee, had to go back on crutches because ofsome pain, also employer needs to know how long he will be out, please call patient regarding this Action Taken: Other: [employer] Travel Screening: Not Applicable E WORKER * Telephone Encounter - Lili Leonardo - 07/12/2022 1:56 PM CST [facility] Phone Message May a detailed message be left on voicemail: no Reason for Call: Patient was requesting RTW paperwork, but called later in the same day to disregard this message. He will be doing PT and will let us know if he needs anything from the care team. E WORKER E WORKER documented in this encounter Plan of Treatment Not on file documented as of this encounter Visit Diagnoses Not on filedocumented in this encounter Additional Health Concerns Assessment Noted Time PHQ-9 Depression Total Score: 5 06/04/19 23 8:18 AM SHORE WORKER documented as of this encounter Care Teams Barber Shop Operator Relationship Specialty Start Date End Date Jaycee Patino APRN LEATHER WORKER [address] [facility] [facility] [place] [address] PCP - General Family Medicine 05/31/22 12/08/23 Julissa Alvarenga MD [address] [place] [address] PCP - General Family [facility] 12/09/23 Jaycee Patino APRN LEATHER WORKER [address] [facility] [place] [address] Assigned PCP 06/15/22 09/20/22 Modesta Guillen MD ORTHOPAEDIC SURGERY [facility] [address] [address] Assigned Musculoskeletal Provider 07/13/22 06/11/23 [place] [address] [place] [address] Assigned Surgical Provider 07/13/22 Jaycee Ken MD [address] [place] [address] Assigned PCP 09/21/22 06/11/23 [facility] [address] [place] [id number] Assigned PCP 06/12/23 01/08/24 Modesta Guillen MD ORTHOPAEDIC SURGERY [address] [place] [address] Assigned Musculoskeletal Provider 06/20/23 01/08/24 Julissa Alvarenga MD [address] [place] [address] Assigned PCP 01/09/24 documented as of this encounter
--- OUTSIDE RECORDS SUMMARY | 2024-10-16 00:31 | XMS_ITS | Encounter Summary ---
Author Organization [place] Address [address] [place] [address] Care Team Providers Care Contract Agent Name Role Phone Jaycee Patino APRN, CNP Primary Care Provide r Jaycee Patino APRN, CNP Unavailable [phone] Modesta Guillen MD Unavailable [phone] Reji Max MD Unavailable Jaycee Ken MD Unavailable [phone] [facility] Unavailable [phone] Modesta Guillen MD Unavailable [phone] Julissa Alvarenga MD Primary Care Provider [phone] Julissa Alvarenga MD Unavailable [phone] Reason for Visit * Reason Onset Date Comments Refill Request 07/01/2022 Encounter Details Date Type Department Care Team (Late st Contact Info) Description 07/01/2022 MyC Refill [facility] [address] [place] [address] Jaycee Patino APRN CONCRETE PUMP OPERATOR [address] [place] [address] Refill Request Social History Tobacco Use Types [...] Coronavirus/COVID-19? No / Unsure 07/04/2022 10:58 AM RATE SUPERVISOR documented as of this encounter Plan of Treatment Not on file documented as of this encounter Visit Diagnoses Diagnosis Muscle spasm- Primary Spasm of muscle SOB (shortness of breath) Shortness of breath documented in this encounter Additional Health Concerns Assessment Noted Time PHQ-9 Depression Total Score: 5 06/04/19 8:18 AM RATE SUPERVISOR documented as of this encounter Care Teams Contract Agent Relationship Specialty Start Date End Date Jaycee Patino APRN CONCRETE PUMP OPERATOR [address] [place] [address] PCP - General Family Medicine 05/31/22 12/08/23 Julissa Alvarenga MD [address] [facility] [place] [address] PCP - General Family Medicine 12/09/23 Jaycee Patino APRN CONCRETE PUMP OPERATOR [address] [place] [address] Assigned PCP 06/15/22 09/20/22 Modesta Guillen MD ORTHOPAEDIC SURGERY [facility] [address] [address]28[address] Assigned Musculoskeletal Provider 07/13/22 06/11/23 Reji Max MD [address] [place] [address] Assigned Surgical Provider 07/13/22 Jaycee Ken MD [address] [place] [address] Assigned PCP 09/21/22 06/11/23 [facility] [address] [place] [id number] Assigned PCP 06/12/23 01/08/24 Modesta Guillen MD ORTHOPAEDIC SURGERY [facility] [address] [address] Assigned Musculoskeletal Provider 06/20/23 01/08/24 Julissa Alvarenga MD [address] [place] [address] Assigned PCP 01/09/24 documented as of this encounter
--- OUTSIDE RECORDS SUMMARY | 2024-10-16 00:31 | XMS_ITS | Encounter Summary ---
Author Organization [place] Address [address] [place] [address] Care Team Providers Care Hvac Technician Residential Name Role Phone Jaycee Patino APRN INTERVENTIONAL NEURORADIOLOGIST Primary Care Provide r Jaycee Patino APRN, CNP Unavailable [phone] Modesta Guillen MD Unavailable [phone] Reji Max MD Unavailable saharaJaycee vides MD Unavailable [phone] [facility] Unavailable [phone] Modesta Guillen MD Unavailable [phone] Julissa Alvarenga MD Primary Care Provider [phone] Julissa Alvarenga MD Unavailable [phone] Encounter Details Date Type Department Care Team (Late st Contact Info) Description 07/22/2022 [facility] [place] [address] [facility] [address] [place] [address] Modesta Guillen MD ORTHOPAEDIC SURGERY [address] [address] Social History Tobacco Use Types [...] Coronavirus/COVID-19? No / Unsure 07/08/2022 1:12 PM SADDLE LINING STITCHER documented as of this encounter Miscellaneous Notes * Telephone Encounter - Minoo Taylor ATC - 07/26/2022 7:35 AM SADDLE LINING STITCHER Patient sent additional telephone encounter regarding this information on 07/25/22. Please see most recent encounter for most up to date information. Minoo Taylor MBA, ATC LE LINING STITCHER documented in this encounter Plan of Treatment Not on file documented as of this encounter Visit Diagnoses Not on filedocumented in this encounter Additional Health Concerns Assessment Noted Time PHQ-9 Depression Total Score: 5 06/04/19 8:18 AM SADDLE LINING STITCHER documented as of this encounter Care Teams Hvac Technician Residential Relationship Specialty Start Date End Date Jaycee Patino APRN INTERVENTIONAL NEURORADIOLOGIST [address] [facility] [place] [address] PCP - General Family Medicine 05/31/22 12/08/23 Julissa Alvarenga MD [address] [place] [address] PCP - General Family Medicine 12/09/23 Jaycee Patino APRN INTERVENTIONAL NEURORADIOLOGIST [address] [place] [address] Assigned PCP 06/15/22 09/20/22 Modesta Guillen MD ORTHOPAEDIC SURGERY [address] [place] [address] Assigned Musculoskeletal Provider 07/13/22 06/11/23 Reji Max MD [address] [place] [address] Assigned Surgical Provider 07/13/22 Jaycee Ken MD [address] [place] [address] Assigned PCP 09/21/22 06/11/23 [facility] [address] [place] [address] Assigned PCP 06/12/23 01/08/24 Modesta Guillen MD ORTHOPAEDIC SURGERY [address] [place] [address] Assigned Musculoskeletal Provider 06/20/23 01/08/24 Julissa Alvarenga MD [address] [place] [address] Assigned PCP 01/09/24 documented as of this encounter
--- OUTSIDE RECORDS SUMMARY | 2024-10-16 00:31 | XMS_ITS | Encounter Summary ---
Author Organization [place] Address [address] [place] [address] Care Team Providers Care Channel Program Manager Name Role Phone Julissa Alvarenga MD Primary Care Provider [phone] Julissa Alvarenga MD Unavailable [phone] Encounter Details Date Type Department Care Team (Latest Contact Info) Description 09/30/2024 Travel Social History Tobacco Use Types Packs/Day Years [...] re latives? Once a week 03/11/2024 Attends Jainism Services Not on file 03/11 Active Member of Clubs or Organizations Not on f ile 03/11/2024 Attends Club or Organization Meetings Not on andrew e 03/11/2024 Marital Status Not on file 03/11/2024 PHQ-2 Answer Date Recorded PHQ-2 Score 0 09/30/2024 [facility] of Occupat ional Health - Occupational Stress [...] Date Recorded Do you have housing? (Tj g is defined as stable permanent housing and does not include staying outside in a car, in a tent, in an abandoned building, in an overnight halfway, or couch-surfing.) Patient declined 09/30/2024 Are you [...] Total Score: 5 06/04/19 23 8:18 AM GREEN END WORKER documented as of this encounter Care Teams Channel Program Manager Relationship Specialty Start Date End Date Julissa Alvarenga MD [address] [address] PCP - General Family Medicine 12/09/23 Julissa Alvarenga MD [address] [address] Assigned PCP 01/09/24 documented as of this encounter
--- OUTSIDE RECORDS SUMMARY | 2024-10-16 00:31 | XMS_ITS | Clinical Summary ---
Author Organization [place] Address [address] [place] [address] Care Team Providers Care Novelty Twister Tender Name Role Phone Julissa Alvarenga MD Primary Care Provider [phone] Julissa Alvarenga MD Unavailable [phone] Allergies Active Allergy Reactions Criticality Noted Date Comments Iodine Hives High 06/30/2007 while in surgery as a child got hives from this doesn't remember the exact name for IODINE Medications albuterol (PROAIR HFA/PROVENTIL HFA/VENTOLIN HFA) 108 (90 Base) MCG/ACT inhalerIndication s:SOB (shortness of breath) Inhale 2 puffs into the lungs as needed for shortness of breath or wheezing 18 g 07/01/19 23 Active XARELTO ANTICOAGULANT 20 MG TABS tablet take 1 tablet by mouth every day with evening meal Active amiodarone (PACERONE) 200 MG tablet Take 200 mg by mouth daily 025 Discontinued Active Problems Problem Noted Date Diagnosed Date Prediabetes 03/12/2024 Paroxysmal atrial fibrillation 05/22/2023 Bilateral lower abdominal pain 06/06/2022 Chronic bilateral low back pain without sciatica 06/06/2022 Sleep difficulties 06/06/2022 Morbid obesity 06/03/2022 Resolved Problems Problem Noted Date Diagnosed Date Resolved Date Benign prostatic hyperplasia 03/22/2013 06/03/2022 Degenerative arthritis of left knee 08/12/2008 06/03/2022 Encounters Date Type Department Care Team Description 09/30/2024 12:30 PM CDT Office Visit [address] [address] Draper Sheree E, DO Umbilical hernia without obstruction and without gangrene (Primary Dx); Abdominal pain, generalized 09/30/2024 Travel 09/24/2024 MyC Refill [facility] [address] [place] [address] Julissa Alvarenga MD Refill Request from Last 3 Months Immunizations Immunization Administration Dates Next Due COVID-19 MONOVALENT 12+ (Pfizer) 05/17/2021 Flu, Unspecified 06/03/2022 Influenza Vaccine, 6+MO IM ( QUADRIVALENT W/PRESERVATIVES) 02/29/2020 Influenza,INJ,MDCK,PF,Quad >6mo(Flucelvax) 06/03 MMR (MMRII) 01/02/2016 TD,PF 7+ (Tenivac) 12/19/2004 TDAP Vaccine [...] re latives? Once a week 03/11/2024 Attends Pentecostalism Services Not on file 03/11 Active Member of Clubs or Organizations Not on f ile 03/11/2024 Attends Club or Organization Meetings Not on andrew e 03/11/2024 Marital Status Not on file 03/11/2024 PHQ-2 Answer Date Recorded PHQ-2 Score 0 09/30/2024 [facility] of Occupat ional Health - Occupational Stress [...] in an abandoned building, in an overnight penitentiary, or couch-surfing.) Patient declined 09/30/2024 Are you [...] Pulse 78 09/30/2024 12:18 PM CDT Temperature 36.4 C (97.5 F) 05/09/2022 11:43 AM NUT ORCHARDIST Respiratory Rate 16 07/09/2022 12:2 0 PM NUT ORCHARDIST Oxygen Saturation 96% 09/30/2024 12: 18 PM CDT Inhaled Oxygen Concentration - - Weight 136.2 kg (300 lb 3.2 oz) 025 12:18 PM CDT Height 171.5 cm (5' 7.5) 09/30/2024 12 :18 PM CDT Body Mass Index 46.32 09/30/2024 12:18 PM CDT Plan of Treatment Health Maintenance Due Date Last Done Comments ADVANCE CARE PLANNING 1969 ANNUAL REVIEW OF HM ORDERS 1969 CT COLONOGRAPHY 1969 FIT 1969 FLEX SIG 1969 HIV SCREENING 1984 HEPATITIS B VACCINE (1 of 3 - 19+ 3-dose series) 1988 PNEUMOCOCCAL VACCINE 50+ YEARS (1 of 2 - PCV) 1988 ZOSTER VACCINE (1 of 2) 08/15/2019 COVID-19 VACCINE (5 - season) 2024 02/15/2022, 05/17/2021, 10/20/2020, Additional history exists INFLUENZA VACCINE (Season Ended) 2025 06/03/2022, 06/03/2022, 02/29/2020 YEARLY PREVENTIVE VISIT 03/11/2025 03/11/2024 sDNA (Cologuard) 06/17/2025 06/17/2022, 06/17/2022 DTAP/TDAP/TD VACCINE (2 - Td or Tdap) 01/01/2026 01/02/2016, 12/19/2004 DIABETES SCREENING 03/11/2027 03/11/2024, 1 , 06/07/2022, Additional history exists LIPID 03/11/2029 03/11/2024, 09/26/2020 COLONOSCOPY 08/31/2033 09/01/2023 COLORECTAL CANCER SCREENING 08/31/2033 HEPATITIS C SCREENING Completed 02/15/2022, 022 PHQ-2 (once per calendar year) Completed 09/30/2024, 03/11/2024, 06/03/2022, Additional history exists HPV VACCINE Aged Out No longer eligi ble based on patient's age to complete this topic MENINGITIS VACCINE Aged Out No longer eligible based on patient's age to complete this topic Procedures Procedure Name Priority Date/Time Associated Diagnosis Comments LIPID PROFILE (RMG) Routine 03/11/2024 1 1:45 AM CDT Routine general medical examination at a health care facility BASIC METABOLIC PANEL Routine 03/11/2024 11:41 AM CDT Routine general medical examination at a health care facility COLOGUARD(EXACT SCIENCES) Routine 06/17/2022 12:00 PM NUT ORCHARDIST Special screening for malignant neoplasms, colon HEPATITIS C (HIM EXTERNAL RESULT) Routine 02/15/2022 2:40 PM CDT from Last 3 Months or Most Recently Relevant to Health Maintenance Results * (ABNORMAL) Lipid Profile (RMG) (03/11/2024 11:45 AM CDT) Cholesterol 229(A) 100 - 199 mg/dL [facility] HDL 42 >=40 mg/dL [facility] Triglycerides 121 0 - 149 mg/dL [facility] LDL CALCULATED (RMG) 163(A) 0 - 130 mg/dL [facility] Patient Fasting? Yes [facility] Blood 03/11/2024 11:4 5 AM CDT us Julissa Alvarenga MD LAB - NON-BEAKER BLOOD LABS F inal Result Performing Organization Address City/State/[facility] Co de Phone Number [facility] [address] [place] [address] * (ABNORMAL) Basic metabolic panel (03/11/2024 11:41 AM CDT) Sodium 141 135 - 145 mmol/L 03/11/2024 [...] 03/11/2024 1:58 PM CDT LABORATORY Comment:eGFR calculated uswi 2020 CKD-EPI equation. Calcium 9.1 8.8 - [...] LAB - BLOOD ORDERABLES Final Result LABORATORY [facility] [address] 1st floor, [address] [place] [address], [facility] [phone] * COLOGUARD([employer]) (06/17/2022 12:00 PM NUT ORCHARDIST) COLOGUARD-ABSTRACT Negative Negative 2022 3:03 AM NUT ORCHARDIST [facility] (CLIA #:[id number]) Comment: NEGATIVE TEST RESULT. A negative Cologuard [...] screened with both Cologuard and colonoscopy. (Beka Bartlett al, N Engl J Med 2014;370(14):1879-6824) The normal value (reference range) for this assay is negative. COLOGUARD RE-SCREENING RECOMMENDATION: Periodic colorectal cancer screening is an important part of preventive healthcare for asymptomatic individuals at average risk for colorectal cancer. Following a negative Cologuard result, the [place] Cancer Society and U.S. Multi-Society Task Force screening guidelines recommend a Cologuard re-screening interval of 3 years. References: [place] Cancer Society Guideline for Colorectal Cancer Screening: https://www.cancer.org/cancer/fbcfj-odcwrw-ihwdpo/ntbhjqkvt-zvcnlybcl-wzgvqby/ac s-rec ommendations.html.; Bert BELLA, Yasmine EDMONDSON, Marley RuizK, Colorectal Cancer Screening: Recommendations for Physicians and Patients from the U.S. Multi-Society Task Force on Colorectal Cancer Screening , Am J Gastroenterology 2017; 112:8553-4498. TEST DESCRIPTION: Composite algorithmic analysis of stool [...] screened with both Cologuard and colonoscopy. (Beka Bartlett al, N Engl J Med 2014;370(14):8462-9081.) Cologuard may produce a false negative or false positive result (no colorectal cancer or precancerous polyp present at colonoscopy follow up). A negative Cologuard test result does not guarantee the absence of CRC or advanced adenoma (pre-cancer). The current Cologuard screening interval is every 3 years. ([place] Cancer Society and U.S. Multi-Society Task Force). Cologuard performance data in a 10,000 patient pivotal study using colonoscopy as the reference method can be accessed at the following location: www.Orteq/results. Additional description of the Cologuard test process, warnings and precautions can be found at www.TalkShoeogJumpPostrd.5app. Stool specimen (specimen) 06/17/2022 12:00 PM NUT ORCHARDIST 06/19/2022 10:25 AM NUT ORCHARDIST Jaycee Patino TANKMAN TEACHER HEARING IMPAIRED LABORATORY Final Result [facility] [address] [phone] [facility] (CLIA #:[id number]) [address] [place] [address] * Hepatitis C (HIM External Result) (02/15/2022 2:40 PM CDT) Hep C HIM See Scanned Document [facility] Comment:non reactive 02/15/2022 2:40 PM CDT us Patient Reported LAB - HIM EXTERNAL RESULT Final Result [facility] [address] [place] [id number] [place] [address] from Last 3 Months or Most Recently Relevant to Health Maintenance Insurance BCBS OUT OF STATE BCBS OUT OF STATE Care Teams Novelty Twister Tender Relationship Specialty Start Date End Date Julissa Alvarenga MD [address] [address] PCP - General Family Medicine 12/09/23 Julissa Alvarenga MD [address] [address] Assigned PCP 01/09/24
--- OUTSIDE RECORDS SUMMARY | 2024-10-16 00:31 | XMS_ITS | Encounter Summary ---
Author Organization [place] Address [address] [place] [address] Care Team Providers Care Energy Management Specialist Name Role Phone Jaycee Patino APRN SENIOR MECHANICAL DESIGN ENGINEER Primary Care Provide r Jaycee Patino APRN, CNP Unavailable [phone] Modesta Guillen MD Unavailable [phone] Reji Max MD Unavailable saharaJaycee vides MD Unavailable [phone] [facility] Unavailable [phone] Modesta Guillen MD Unavailable [phone] Julissa Alvarenga MD Primary Care Provider [phone] Julissa Alvarenga MD Unavailable [phone] Encounter Details Date Type Department Care Team (Late st Contact Info) Description 07/15/2022 [facility] Adv[facility] [place] [address] [facility] [address] 4th [place] [address] Modesta Guillen MD ORTHOPAEDIC SURGERY [address] [address] Social History Tobacco Use Types [...] Coronavirus/COVID-19? No / Unsure 07/08/2022 1:12 PM CEMENT FINISHER documented as of this encounter Miscellaneous Notes * Telephone Encounter - Modesta Guillen MD - 07/17/2022 10:58 AM CEMENT FINISHER Work letter printed and signed. Ready to be faxed to [place]. Modesta Jefferson MD, [facility] NT FINISHER * Telephone Encounter - Minoo Taylor - 07/16/2022 8:29 AM CST Please see patient's request for work letter for employer allowing him to return to work on 07/24/22 without restrictions and advise. Minoo Taylor MBA, ATC NT FINISHER documented in this encounter Plan of Treatment Not on file documented as of this encounter Visit Diagnoses Not on filedocumented in this encounter Additional Health Concerns Assessment Noted Time PHQ-9 Depression Total Score: 5 06/04/19 8:18 AM CEMENT FINISHER documented as of this encounter Care Teams Energy Management Specialist Relationship Specialty Start Date End Date Jaycee Patino APRN SENIOR MECHANICAL DESIGN ENGINEER [address] [address] PCP - General Family Medicine 05/31/22 12/08/23 Julissa Alvarenga MD [address] [address] PCP - General Family Medicine 12/09/23 Jaycee Patino APRN [facility] [address] [place] [address] Assigned PCP 06/15/22 09/20/22 Modesta Guillen MD ORTHOPAEDIC SURGERY [address] [place] [address] Assigned Musculoskeletal Provider 07/13/22 06/11/23 Reji Max MD [address] [place] [address] Assigned Surgical Provider 07/13/22 Jaycee Ken MD [address] [place] [address] Assigned PCP 09/21/22 06/11/23 [facility] [address] [place] [id number] Assigned PCP 06/12/23 01/08/24 Modesta Guillen MD ORTHOPAEDIC SURGERY [address] [place] [address] Assigned Musculoskeletal Provider 06/20/23 01/08/24 Julissa Alvarenga MD [address] [place] [address] Assigned PCP 01/09/24 documented as of this encounter
[2024-10-16 00:38] VITALS: BP 173/105; PULSE 79; RESP 18; RESP 20; TEMP 36.7; O2SAT 97; O2SAT 99; BMI 47.5
--- NOTE | 2024-10-16 00:52 | ED.HA ---
HPI - Headache General Date Seen: 10/16/24 Chief Complaint: Unspecified Complaint, Adult Stated Complaint: headache Time Seen by Provider: 10/16/24 00:31 Source: patient Mode of arrival: ambulatory Limitations: no limitations History of Present Illness HPI Narrative: This very pleasant 54-year-old gentleman presents here with a headache, that he developed approximately at midnight he had just come home from [place], where he was playing sequence with family. He noticed that he had by temp oral discomfort and pressure, not associated with nausea vomiting, no visual changes no numbness tingling or weakness, he also felt hot and flushed. Much improved now since he came here he did not take any medication at all. He said he also noted today that he was a little bit more short of breath, going up and down the stairs seemed harder for him. He does have a history of atrial fibrillation but does not feel that he is back in atrial fibrillation, taking his Xarelto as directed, did not take any medication for the headache, no history of falls or injury. This is not the worst headache he has ever had. MD elicited complaint: headache Onset description: suddenly Location: temporal Severity: moderate Quality & Timing: constant Exacerbating factors: none Relieving factors: nothing Context: occurred at rest Associated symptoms: none Treatments prior to arrival: none Related Data Home Medications ?Medication ?Instructions ?Recorded ?Confirmed albuterol 04/30/22 rivaroxaban 20 mg tablet (Xarelto) 20 mg PO DAILY 04/16/23 10/16/24 Allergies Allergy/AdvReac Type Severity Reaction Status Date / Time iodine Allergy Intermediate Verified 10/16/24 00:43 Review of Systems Status of ROS: Reports: 10 or more systems reviewed and unremarkable except as noted in History and below [facility] Social History Smoking Status: Never smoker Do you use any of these nicotine containing products: None How often do you have a drink containing alcohol: never How often do you have six or more drinks on one occasion: Never AUDIT-C Alcohol total score: 0 Non-prescribed substance use: denies use Exam Narrative: Exam Narrative: On examination in room 3 he is in no apparent distress speaking to me normally alert oriented x3 with a GCS is 15/15, nontoxic looking pupils equal round reactive to light there is no scleral icterus redness is TMs are normal, he tracks normally with absence of nystagmus, cranial nerves 3-12 are normal, neck is supple with no meningismus, chest is good air entry bilateral with no wheezing crackles noted his heart sounds no clicks murmurs or gallops his abdomen is soft and obese there is no guarding no organomegaly skin reveals no petechiae rashes no edema of his lower extremities, no tenderness to palpation over his calves no rashes are noted. Neurologically intact moving his upper lower extremities. Const: Vital Signs, click to edit/add: Vital Signs - 24 hr 10/16/24 00:38 10/16/24 00:56 Temperature 98.1 F 98.1 F Pulse Rate [Pulse Oximeter] 79 Respiratory Rate 20 Blood Pressure [Ri ght Upper Arm] 173/105 H Pulse Oximetry 97 Oxygen Delivery Me thod Room Air Documenting provider has reviewed patient's vital signs: yes Course Course ED Course: Reassuring findings are seen with his blood tests his troponin is 0 BNP was normal. Given the fact that shortness of breath is been all day, I think that this rules out of myocardial issue, given he is taking his Xarelto as recommended I do not think this is related to a pulmonary embolism. Is no wheezing or any other findings, except a slightly elevated blood pressure. Head CT was negative as was chest, I think it would be reasonable let him go home, reassurance given. Vital Signs Vital signs: Initial Vital Signs Temperature 98.1 F 10/16/24 00:38 Temperature Source Temporal Artery Scan 10/16/24 00:38 Pulse Rate 79 10/16/24 00:38 Respiratory Rate 20 10/16/24 00:38 Blood Pressure 173/105 H 10/16/24 00:38 Blood Pressure Mean 127 H 10/16/24 00:38 Blood Pressure Position Sitting 10/16/24 00:38 Pulse Oximetry 97 10/16/24 00:38 Oxygen Delivery Method Room Air 10/16/24 00:38 Vital Signs Temperature 98.1 F 10/16/24 00:38 Pulse Rate 79 10/16/24 00:38 Respiratory Rate 20 10/16/24 00:38 Blood Pressure 173/105 H 10/16/24 00:38 Pulse Oximetry 97 10/16/24 00:38 Oxygen Delivery Method Room Air 10/16/24 00:38 Temperature 98.1 F 10/16/24 00:56 Pulse Rate 79 10/16/24 00:38 Respiratory Rate 20 10/16/24 00:38 Blood Pressure 173/105 H 10/16/24 00:38 Pulse Oximetry 97 10/16/24 00:38 Oxygen Delivery Method Room Air 10/16/24 00:38 Medications Administered Medications: Discontinued Medications Generic Name Dose Route Start Last Admin Trade Name Freq PRN Reason Stop Dose Admin Acetaminophen 1,000 mg 10/16/24 00:52 10/16/24 00:56 Acetaminophen 500 Mg Tablet PO 10/16/24 00:53 1,000 mg ONCE ONE Administration MDM - Headache MDM Narrative Medical decision making narrative: Life-threatening differential diagnosis include subarachnoid hemorrhage, meningitis, encephalitis, carbon monoxide poisoning, and intracerebral hemorrhage. Other differential diagnosis include but not limited to migraine, cluster headache, tension headache, CONCRETE ENGINEERING TECHNICIAN vasculitis, mass lesion, temporal arteritis, click acute closed angle glaucoma, septal and trigeminal neuralgia, sinusitis, closed head injury, and stroke Life-threatening differential diagnosis includes occluded COPD exacerbation, pulmonary edema, acute coronary syndromes, pulmonary embolism, pneumonia, and pneumothorax. Other differential diagnosis considerations include asthma, bronchitis as well as other etiologies I discussed with him his EKG is normal he is clearly not atrial fibrillation he has been taking his anticoagulation I think we should do a CT of his head to rule out any intracranial bleed a chest x-ray BNP and troponin. Since this occurred earlier tonight, Mohini shortness of breath I do not think we after will most more than once. He is feeling better now there maybe it element of anxiety with this, we will give Tylenol for this discomfort. Differential Diagnosis Differential diagnosis: Likely migraine, tension headache, subarachnoid hemorrhage, headache, meningitis, sinusitis and postconcussion syndrome Medical Records Attestation: I reviewed the patient's medical records. Lab Data Attestation: I reviewed the patient's lab results. Labs: Lab Results 10/16/24 10/16/24 Range/Units 01:10 01:12 NT-Pro-B Natriuret Pep 57 (See Note) pg/mL POC Troponin I 0.00 L (0.01-0.04) ng/ml Imaging Data CT scan - head: Radiologist's impression: [place] [id number] Diagnostic Imaging Report Patient: Yaakov Najera Jr MR#: [id number] : 1970 Acct:[id number] Loc: ED Service Date: 10/16/24 Attending : Ordering Physician: Romel Mendez M.D. Date of Service: 10/16/24 Procedure(s): CT head/brain wo con Accession Number(s): [id number] cc: Provider,Not a Local; Romel Mendez M.D.~ For Patients: As a result of the Cures Act, medical imaging exams and procedure reports are released immediately into your electronic medical record. You may view this report before your referring provider. If you have questions, please contact your health care provider. INDICATION: Headache, ear pain. COMPARISON: None. TECHNIQUE: CT of the head without IV contrast. Coronal and sagittal reconstructions. FINDINGS: Brain: No intracranial hemorrhage, abnormal extra-axial fluid collection, or evidence of acute infarct. No mass effect or midline shift. Normal caliber ventricular system. Skull base and calvarium: Polyp or mucous retention cyst in the left maxillary sinus. The visualized paranasal sinuses and mastoid air cells are otherwise clear. The visualized orbits are grossly unremarkable. No acute fracture identified. Soft tissues: Unremarkable. IMPRESSION: No acute intracranial findings. Please note that all CT scans at this facility use dose modulation, iterative reconstruction, and/or weight-based dosing when appropriate to reduce radiation dose to as low as reasonably achievable. Dictated by Almaz Hall MD @ 10/16/2024 1:33:19 [place] [address] Diagnostic Imaging Report Patient: Yaakov Najera Jr MR#: [id number] : 1970 Acct:[id number] Loc: ED Service Date: 10/16/24 Attending : Ordering Physician: Romel Mendez M.D. Date of Service: 10/16/24 Procedure(s): XR chest 2V Accession Number(s): [id number] cc: Provider,Not a Local; Romel Mendez M.D.~ For Patients: As a result of the Cures Act, medical imaging exams and procedure reports are released immediately into your electronic medical record. You may view this report before your referring provider. If you have questions, please contact your health care provider. INDICATION: Chest pressure and shortness of breath. TECHNIQUE: Chest 2 view. COMPARISON: Chest radiograph 07/12/2024. FINDINGS: Cardiovascular: Heart size and pulmonary vasculature are within normal limits. Lungs and pleural spaces: No focal consolidation, pleural effusion, or pneumothorax. Calcified granuloma in the right apex. Bones and soft tissues: No significant findings. IMPRESSION: No acute cardiopulmonary findings. Dictated by Almaz Hall MD @ 10/16/2024 1:25:52 AM (Electronically Signed) (Electronically Signed) ECG Data Attestation: I personally reviewed and interpreted this ECG as follows: ECG interpretation date: 10/16/24 Prior ECG tracings: available for review Interpretation: EKG shows normal sinus rhythm, ST wave flattening, left anterior fascicular block. QRS normal at 96, QT QTC both slightly prolonged When compared to old EKG from 07/12/2024 no appreciable change Discharge Plan Discharge Clinical Impression: Headache, Shortness of breath, Anxiety, Elevated blood pressure reading Patient Disposition: Home, Self-Care Condition: Stable Instructions: Acute Headache (ED), Shortness of Breath (ED) Additional Instructions: No evidence of any abnormalities seen on both your blood tests, EKG, head CT and chest x-ray, I do think that this may be just a couple things going on like a regular headache with some anxiety over the situation, I would continue to monitor the situation, take some Tylenol, and reassurance given. Follow up with her regular physician to recheck her blood pressure is recommended. Activity Level: Light activity Prescriptions: No Action Xarelto 20 mg tablet 20 mg PO DAILY albuterol Follow Up/Referrals: Provider,Not a Local [Primary Care Provider, Family Practice] Stand Alone Forms: [employer] Info Instructions
[2024-10-16 00:56] VITALS: TEMP 36.7
[2024-10-16] MEDS: ACETAMINOPHEN 500 MG TABLET 1000 MG PO (00:56)
[2024-10-16 01:34] LABS: NT Pro B Type NatriureticPept* 57 pg/mL (See Note)
[2024-10-16 01:45] VITALS: BP 165/89; PULSE 74; RESP 20; TEMP 36.7; O2SAT 97
[2024-10-16 01:46] VITALS: BP 165/89; PULSE 74; RESP 20; TEMP 36.7
== END 2024-10-16 01:47 | disposition home or self-care (01) ==
PROVIDERS: Emergency Provider Family Medicine
DX: R51.9 Headache, unspecified (principal); R06.02 Shortness of breath; F41.9 Anxiety disorder, unspecified; R03.0 Elevated blood-pressure reading, without diagnosis of hypertension
CPT/HCPCS: 36415; 70450; 71046; 83880; 84484; 93005; 99284; 99285; A9270

== ENCOUNTER 2024-11-21 04:56 | Emergency (ER) | payer BC, SELFPAY ==
--- OUTSIDE RECORDS SUMMARY | 2024-11-18 15:30 | XMS_ITS | Encounter Summary ---
Author Organization [facility] Address [address] [place] [address] Care Team Providers Care Inspector Boiler Name Role Phone Julissa Alvarenga MD Unavailable [phone] Sheree Draper DO Primary Care Provider [phone] Reason for Referral * Diagnostic Imaging XR (Routine) - Pending Review Specialty Diagnoses / Procedures Referred By Adalgisa clay Referred To Contact Radiology. Diagnoses Left foot pain Procedures XR Foot Left G/E 3 Views Sheree Draper DO [address] [place] [address] Phone: tel: fax: Referral ID Status Reason Start Date Expiration Date V isits Requested Visits Authorized [id number] Pending Review 11/18/2024 11/18/2025 1 1 Reason for Visit * Reason Comments Foot Problems Left pain, no injury , started 4 days, red , swelling , dull pain on left going up back when sittingNonfasting Encounter Details Date Type Department Care Team (Late st Contact Info) Description 11/18/2024 3:30 PM CDT Office Visit [facility] [address] [place] [address] Sheree Draper DO [address] [place], [place] [id number] Left foot pain (Primary Dx) Social History Tobacco Use Types Packs/Day Years [...] re latives? Once a week 03/11/2024 Attends [employer] Services Not on file 03/11 Active Member of Clubs or Organizations Not on f ile 03/11/2024 Attends Club or Organization Meetings Not on andrew e 03/11/2024 Marital Status Not on file 03/11/2024 PHQ-2 Answer Date Recorded PHQ-2 Score 0 09/30/2024 [facility] - Occupational Stress Questionnaire Answer [...] building, in an overnight intermediate, or couch-surfing.) Patient declined 09/30/2024 Are you worried about losing your housing? Antoniettae nt declined 09/30/2024 Financial Resource Strain Answer [...] Sign Reading Time Taken Comments Blood Pressure 129/66 11/18/2024 3:17 PM CDT Pulse 87 11/18/2024 3:17 PM CDT Temperature - - Respiratory Rate - - Oxygen Saturation 98% 11/18/2024 3:17 PM CDT Inhaled Oxygen Concentration - - Weight 131 kg (288 lb 14.4 oz) 11/18/2024 3:17 P M CDT Height - - Body Mass Index 44.58 09/30/2024 12:18 PM CDT documented in this encounter Patient Instructions * Patient Instructions* Sheree Draper DO - 11/18/2024 3:30 PM CDT Please utilize ibuprofen and acetaminophen alternative for 3 days to help with pain control. Ibuprofen 600 mg 4 hours later Acetaminophen 1000 mg 4 hours later Ibuprofen 600 mg Continue for 3 days Acetaminophen: Tylenol Ibuprofen: Advil, Motrin, Aleve If you do not get relief, consider utilizing muscle relaxer. documented in this encounter Progress Notes * Sheree Draper DO - 11/18/2024 3:30 PM CDT Images from the original note were not included. Answers submitted by the patient for this visit: General Questionnaire (Submitted on 11/18/2024) Chief Complaint: Chronic problems general questions HPI Form How many days per week do you miss taking your medication?: 0 General Concern (Submitted on 11/18/2024) Chief Complaint: Chronic problems general questions HPI Form What is the reason for your visit today?: foot pain When did your symptoms begin?: 3-7 days ago Questionnaire about: Chronic problems general questions HPI Form (Submitted on 11/18/2024) Chief Complaint: Chronic problems general questions HPI Form Assessment & Plan Assessment & Plan Left foot pain -due to pain at the base of the 5th metatarsal, will order XR -awaiting radiology read -for pain control, discussed alternating tylenol and ibuprofen -if no improvement over long holiday weekend, will also prescribe some flexeril -patient to let us know if pain worsens or does not improve -can consider blood work at that time Orders: XR Foot Left G/E 3 Views cyclobenzaprine (FLEXERIL) 5 MG tablet; Take 1 tablet (5 mg) by mouth 3 times daily as needed for muscle spasms. BMI Estimated body mass index is 44.58 kg/m?? as calculated from the following: Height as of 09/30/24: 1.715 m (5' 7.5). Weight as of this encounter: 131 kg (288 lb 14.4 oz). Follow-up Return if symptoms worsen or fail to improve. Renetta Banks is a 54 year old, presenting for the following health issues: Foot Problems (Left pain, no injury, started 4 days, red , swelling , dull pain on left going up back when sitting//Nonfasting/) History of Present Illness Reason for visit: Foot pain Symptom onset: 3-7 days ago He is taking medications regularly. Patient states that 4 days ago, the top of right foot just started hurting real bad. Patient statesthat the foot was hurting all night long last night. Patient did utilize ice. Patient had been on his feet and the pain was worse this morning. Patient notes dull pain going up and down his leg. Patient states that stretching helps. Patient states that he bought new shoes. Patient states that today, his foot is swollen with an area of redness. Patient states that it is almost like a burning sensation on the outside of his foot. Patient states that he discomfort does not inhibit sleep. Patient states that he is recently s/p ablation for his heart. Ibuprofen/tylenol? Muscle relaxer? Review of Systems Musculoskeletal: Positive for joint pain. Objective BP 129/66 Pulse 87 Wt 131 kg (288 lb 14.4 oz) SpO2 98% BMI 44.58 kg/m?? Body mass index is 44.58 kg/m??. Physical Exam Constitutional: Appearance: Normal appearance. HENT: Head: Normocephalic and atraumatic. Eyes: Conjunctiva/sclera: Conjunctivae normal. Cardiovascular: Rate and Rhythm: Normal rate and regular rhythm. Heart sounds: Normal heart sounds. No murmur heard. Pulmonary: Effort: Pulmonary effort is normal. No respiratory distress. Breath sounds: Normal breath sounds. Musculoskeletal: Feet: Feet: Left foot: Skin integrity: Erythema present. No ulcer, blister or skin breakdown. Comments: Erythema on top of foot and tenderness to lateral portion at base of 5th metatarsal Neurological: Mental Status: He is alert. Psychiatric: Thought Content: Thought content normal. Signed Electronically by: Sheree Draper DO documented in this encounter Plan of Treatment Pending Results Name Type Priority Associated Diagnoses Date /Time XR Foot Left G/E 3 Views Imaging Routine Left foot pain 11/18/2024 documented as of this encounter Visit Diagnoses Diagnosis Left foot pain- Primary Pain in limb documented in this encounter Additional Health Concerns Assessment Noted Time PHQ-9 Depression Total Score: 5 06/04/19 23 8:18 AM COMPOUND MIXER documented as of this encounter Care Teams Inspector Boiler Relationship Specialty Start Date End Date Sheree Draper DO [address] [place] [address] PCP - General Family Medicine 11/18/24 Julissa Alvarenga MD [address] [address] Assigned PCP 01/09/24 documented as of this encounter
[2024-11-21] VITALS (16 sets, daily range): BP systolic 124–163; BP diastolic 73–105; PULSE 89–105; RESP 16–20; TEMP 36.4; O2SAT 93–98; BMI 44.5
--- OUTSIDE RECORDS SUMMARY | 2024-11-21 05:00 | XMS_ITS | Encounter Summary ---
Author Organization [facility] Address [address] [place] [address] Care Team Providers Care Master Deputy Sheriff Court Security Name Role Phone Jaycee Patino APRN BLOOD BANK SPECIALIST Primary Care Provide r Jaycee Patino APRN, CNP Unavailable [phone] Modesta Guillen MD Unavailable [phone] Reji Max MD Unavailable Jaycee Ken MD Unavailable [phone] [facility] Unavailable [phone] Modesta Guillen MD Unavailable [phone] Julissa Alvarenga MD Primary Care Provider [phone] Julissa Alvarenga MD Unavailable [phone] Sheree Draper DO Primary Care Provider [phone] Encounter Details Date Type Department Care Team (Late st Contact Info) Description 07/25/2022 [facility] [address] [place] [address] Jaycee Ken MD [address] [place] [address] Social History Tobacco Use Types Packs/Day [...] Coronavirus/COVID-19? No / Unsure 07/08/2022 1:12 PM AUTO BODY MECHANIC documented as of this encounter Plan of Treatment Not on file documented as of this encounter Visit Diagnoses Not on filedocumented in this encounter Additional Health Concerns Assessment Noted Time PHQ-9 Depression Total Score: 5 06/04/19 8:18 AM AUTO BODY MECHANIC documented as of this encounter Care Teams Master Deputy Sheriff Court Security Relationship Specialty Start Date End Date Jaycee Patino APRN BLOOD BANK SPECIALIST [address] [place] [address] PCP - General Family Medicine 05/31/22 12/08/23 Julissa Alvarenga MD [address] [place] [address] PCP - General Family Medicine 12/09/23 11/17/24 Sheree Draper DO [address] [place] [address] PCP - General Family Medicine 11/18/24 Jaycee Patino APRN BLOOD BANK SPECIALIST [address] [address] Assigned PCP 06/15/22 09/20/22 Modesta Guillen MD ORTHOPAEDIC SURGERY [address] [place] [address] Assigned Musculoskeletal Provider 07/13/22 06/11/23 Reji Max MD [address] [place] [address] Assigned Surgical Provider 07/13/22 Jaycee Ken MD [address] [place] [address] Assigned PCP 09/21/22 06/11/23 [facility] [address] [place] [id number] Assigned PCP 06/12/23 01/08/24 Modesta Guillen MD ORTHOPAEDIC SURGERY [facility] [address] [address] Assigned Musculoskeletal Provider 06/20/23 01/08/24 Julissa Alvarenga MD [address] [place] [address] Assigned PCP 01/09/24 documented as of this encounter
--- OUTSIDE RECORDS SUMMARY | 2024-11-21 05:00 | XMS_ITS | Encounter Summary ---
Author Organization [facility] Address [address] [place] [address] Care Team Providers Care Mold Setter Name Role Phone No Ref-Primary, Physician Primary Care Provider Dionne Mayorga MD Unavailable [phone] [facility] Primary Care Provider Jaycee Patino APRN FOREST ECOLOGIST Primary Care Provide r Jaycee Patino APRN FOREST ECOLOGIST Unavailable [phone] Modesta Guillen MD Unavailable [phone] Reji Max MD Unavailable Jaycee Ken MD Unavailable [phone] [facility] Unavailable [phone] Modesta Guillen MD Unavailable [phone] Julissa Alvarenga MD Primary Care Provider [phone] Julissa Alvarenga MD Unavailable [phone] Sheree Draper DO Primary Care Provider [phone] Encounter Details Date Type Department Care Team (Late st Contact Info) Description 10/05/2020 [facility] [address], [address] [place] [address] Orville Toth CMA Social History [...] on filedocumented in this encounter Care Teams Mold Setter Relationship Specialty Start Date End Date No Ref-Primary, Physician PCP - General 03/07/20 05/08/[address] [address] PCP - General 05/09/22 05/30/22 Jaycee Patino APRN FOREST ECOLOGIST [address] [place] [address] PCP - General Family Medicine 05/31/22 12/08/23 Julissa Alvarenga MD [address] [place] [address] PCP - General Family Medicine 12/09/23 11/17/24 Sheree Draper DO [address] [address] PCP - General Family Medicine 11/18/24 Dionne Mayorga MD [address] [address] Assigned PCP 02/11/20 05/03/22 Jaycee Patino APRN FOREST ECOLOGIST [address] [address] Assigned PCP 06/15/22 09/20/22 Modesta Guillen MD ORTHOPAEDIC SURGERY [address] [place] [address] Assigned Musculoskeletal Provider 07/13/22 06/11/23 Reji Max MD [address] [place] [address] Assigned Surgical Provider 07/13/22 Jaycee Ken MD [address] [place] [address] Assigned PCP 09/21/22 06/11/23 [facility] [address] [address] Assigned PCP 06/12/23 01/08/24 Modesta Guillen MD ORTHOPAEDIC SURGERY [address] [place] [address] Assigned Musculoskeletal Provider 06/20/23 01/08/24 Julissa Alvarenga MD [address] [place] [address] Assigned PCP 01/09/24 documented as of this encounter
--- OUTSIDE RECORDS SUMMARY | 2024-11-21 05:00 | XMS_ITS | Encounter Summary ---
Author Organization [place] Address [address] [place] [address] Care Team Providers Care Management Department Chair Name Role Phone Jaycee Patino APRN TROMBONE SLIDE ASSEMBLER Primary Care Provide r Jaycee Patino APRN, CNP Unavailable [phone] Modesta Guillen MD Unavailable [phone] Reji Max MD Unavailable Jaycee Ken MD Unavailable [phone] [facility] Unavailable + [phone] Modesta Guillen MD Unavailable [phone] Julissa Alvarenga MD Primary Care Provider [phone] Julissa Alvarenga MD Unavailable [phone] Sheree Draper DO Primary Care Provider + [phone] Encounter Details Date Type Department Care Team (Late st Contact Info) Description 07/30/2022 [facility] Medical Advice [facility] [place] [address] [facility] [address] [place] [address] Modesta Guillen MD ORTHOPAEDIC SURGERY [address] [address] Acute pain of left knee [...] Coronavirus/COVID-19? No / Unsure 07/08/2022 1:12 PM AUTOMOBILE RACER documented as of this encounter Miscellaneous Notes * Telephone Encounter - Minoo Taylor ATC - 08/05/2022 2:20 PM CDT Re-faxed forms to [employer] [facility] @ [phone]. Responded to patient via [employer]. Minoo Taylor MBA ATC * Telephone Encounter - Kianna Jackson - 07/31/2022 12:43 PM CDT Faxed forms to [employer] [facility] at [phone] Forms left in out box while awaiting response from patient Diann Jackson ATC * Telephone Encounter - Modesta Guillen MD - 07/31/2022 11:49 AM CDT Form completed and in provider inbox. Ready to be faxed or emailed per patient request. Modesta Jefferson MD, [facility] * Telephone Encounter - Minoo Taylor ATC - 07/30/2022 8:45 AM CDT Reason for Call: Form, our goal is to have forms completed with 7 days, however, some forms may require a visit or additional information. Type of letter, form or note: Attending Physician Statement Who is the form from?: [facility] Where did the form come from: Patient or family brought in Desired completion date of form: nii How will form be returned?: Waiting for patient reply Has the patient signed a consent form for release of information (may be included with form)? NO Form was started and place in Provider Basket for provider review/ completion at [facility]. Minoo Taylor MBA, ATC documented in this encounter Plan of Treatment Not on file documented as of this encounter Visit Diagnoses Diagnosis Acute pain of left knee- Primary Insufficiency fracture of left femur with routine healing, subsequent encounter documented in this encounter Additional Health Concerns Assessment Noted Time PHQ-9 Depression Total Score: 5 06/04/19 23 8:18 AM AUTOMOBILE RACER documented as of this encounter Care Teams Management Department Chair Relationship Specialty Start Date End Date Jaycee Patino APRN TROMBONE SLIDE ASSEMBLER [address] [address] PCP - General Family Medicine 05/31/22 12/08/23 Julissa Alvarenga MD [address] [address] PCP - General Family Medicine 12/09/23 11/17/24 Sheree Draper DO [address] [address] PCP - General Family Medicine 11/18/24 Jaycee Patino APRN TROMBONE SLIDE ASSEMBLER [address] [address] Assigned PCP 06/15/22 09/20/22 Modesta Guillen MD ORTHOPAEDIC SURGERY [address] [place] [address] Assigned Musculoskeletal Provider 07/13/22 06/11/23 Reji Max MD [address] [place] [address] Assigned Surgical Provider 07/13/22 Jaycee Ken MD [address] [place] [address] Assigned PCP 09/21/22 06/11/23 [facility] [address] [place] [address] Assigned PCP 06/12/23 01/08/24 Modesta Guillen MD ORTHOPAEDIC SURGERY [address] [place] [address] Assigned Musculoskeletal Provider 06/20/23 01/08/24 Julissa Alvarenga MD [address] [place] [address] Assigned PCP 01/09/24 documented as of this encounter
--- OUTSIDE RECORDS SUMMARY | 2024-11-21 05:00 | XMS_ITS | Encounter Summary ---
Author Organization [facility] Address [address] [place] [address] Care Team Providers Care Electronic Component Processor Name Role Phone Julissa Alvarenga MD Primary Care Provider [phone] Julissa Alvarenga MD Unavailable [phone] Sheree Draper DO Primary Care Provider [phone] Encounter Details Date Type Department Care Team (Late st Contact Info) Description 11/05/2024 [facility] Medical Advice [facility] [address] [place] [address] [facility] [place] Social History Tobacco Use Types Packs/Day Years [...] re latives? Once a week 03/11/2024 Attends Alevism Services Not on file 03/11 Active Member of Clubs or Organizations Not on f ile 03/11/2024 Attends Club or Organization Meetings Not on andrew e 03/11/2024 Marital Status Not on file 03/11/2024 PHQ-2 Answer Date Recorded PHQ-2 Score 0 09/30/2024 [facility] of Occupat ional Health - Occupational Stress [...] building, in an overnight fdc, or couch-surfing.) Patient declined 09/30/2024 Are you [...] 5 06/04/19 23 8:18 AM DIRECTOR OF RETAIL OPERATIONS documented as of this encounter Care Teams Electronic Component Processor Relationship Specialty Start Date End Date Julissa Alvarenga MD [address] [address] PCP - General Family Medicine 12/09/23 11/17/24 Sheree Draper DO [address] [address] PCP - General Family Medicine 11/18/24 Julissa Alvarenga MD [address] [address] Assigned PCP 01/09/24 documented as of this encounter
--- OUTSIDE RECORDS SUMMARY | 2024-11-21 05:00 | XMS_ITS | Clinical Summary ---
Author Organization [place] Address [address] [place] [address] Care Team Providers Care Central Sterile Technician Name Role Phone Julissa Alvarenga MD Unavailable [phone] Sheree Draper DO Primary Care Provider [phone] Allergies Active Allergy Reactions Criticality Noted Date Comments Iodine Hives High 06/30/2007 while in surgery as a child got hives from this doesn't remember the exact name for IODINE Medications albuterol (PROAIR HFA/PROVENTIL HFA/VENTOLIN HFA) 108 (90 Base) MCG/ACT inhalerIndications :SOB (shortness of breath) Inhale 2 puffs into the lungs as needed for shortness of breath or wheezing 18 g 3 Active XARELTO ANTICOAGULANT 20 MG TABS tablet take 1 tablet by mouth every day with evening meal Active cyclobenzaprine (FLEXERIL) 5 MG tabletIndications: Left foot pain Take 1 tablet (5 mg) by mouth 3 times daily as needed for muscle spasms. 9 tablet 5 11/22/19 25 Active Active Problems Problem Noted Date Diagnosed Date Prediabetes 03/12/2024 Paroxysmal atrial fibrillation 05/22/2023 Bilateral lower abdominal pain 06/06/2022 Chronic bilateral low back pain without sciatica 06/06/2022 Sleep difficulties 06/06/2022 Morbid obesity 06/03/2022 Resolved Problems Problem Noted Date Diagnosed Date Resolved Date Benign prostatic hyperplasia 03/22/2013 06/03/2022 Degenerative arthritis of left knee 08/12/2008 06/03/2022 Encounters Date Type Department Care Team Description 11/18/2024 3:30 PM CDT Office Visit [address] [address] Sheree Draper, DO Left foot pain (Primary Dx) 11/18/2024 Travel 11/05/2024 [facility] Medical Advice [address] [address] MychartIrasema 09/30/2024 12:30 PM CDT Office Visit [address] [address] Sheree Draper, Umbilical hernia without obstruction and without gangrene (Primary Dx); Abdominal pain, generalized 09/30/2024 Travel 09/24/2024 [facility] Refill [address] [address] Julissa Alvarenga MD Refill Request from Last [...] re latives? Once a week 03/11/2024 Attends Jew Services Not on file 03/11 Active Member of Clubs or Organizations Not on f ile 03/11/2024 Attends Club or Organization Meetings Not on andrew e 03/11/2024 Marital Status Not on file 03/11/2024 PHQ-2 Answer Date Recorded PHQ-2 Score 0 09/30/2024 [facility] of Occupat ional Health - Occupational Stress [...] in an abandoned building, in an overnight senior care, or couch-surfing.) Patient declined 09/30/2024 Are you [...] Pulse 87 11/18/2024 3:17 PM CDT Temperature 36.4 C (97.5 F) 05/09/2022 11:43 AM NEWS CAMERA OPERATOR Respiratory Rate 16 07/09/2022 12:20 PM NEWS CAMERA OPERATOR Oxygen Saturation 98% 11/18/2024 3:17 PM CDT Inhaled Oxygen Concentration - - Weight 131 kg (288 lb 14.4 oz) 11/18/2024 3:17 P M CDT Height 171.5 cm (5' 7.5) 09/30/2024 12:18 PM CD T Body Mass Index 44.58 09/30/2024 12:18 PM CDT Plan of Treatment [...] VACCINE (1 of 2) 08/15/2019 COVID-19 VACCINE ( - season) 2024 02/15/2022, 05/17/2021, 10/20/2020, Additional history exists INFLUENZA VACCINE (#1) 2025 , 06/03/2022, 02/29/2020 YEARLY PREVENTIVE VISIT 03/11/2025 03/11/2024 [...] medical examination at a health care facility COLOGUARD(Related Content Database (RCDb) SCIENCES) Routine 06/17/2022 12:00 PM NEWS CAMERA OPERATOR Special screening for malignant neoplasms, colon HEPATITIS C (HIM EXTERNAL RESULT) Routine 02/15/2022 2:40 PM CDT from Last 3 Months or Most Recently Relevant to Health Maintenance Results * (ABNORMAL) Lipid Profile (RMG) (03/11/2024 11:45 AM CDT) Cholesterol 229(A) 100 - 199 mg/dL [facility] HDL 42 >=40 mg/dL [facility] Triglycerides 121 0 - 149 mg/dL [facility] LDL CALCULATED (RMG) 163(A) 0 - 130 mg/dL [facility] Patient Fasting? Yes [facility] Blood 03/11/2024 11:4 5 AM CDT us Julissa Alvarenga MD LAB - NON-BEAKER BLOOD LABS F inal Result [facility] [address] [place] [address] [phone] * (ABNORMAL) Basic metabolic panel (03/11/2024 11:41 [...] 11:41 AM CDT 03/11/2024 11:41 AM CDT us Julissa Alvarenga MD LAB - BLOOD ORDERABLES Final Result LABORATORY [facility] [address] 1[address] floor, [address] [place] [address], [facility] [phone] * COLOGUARD(Funny Or Die) (06/17/2022 12:00 PM NEWS CAMERA OPERATOR) COLOGUARD-ABSTRACT Negative Negative 2022 3:03 AM NEWS CAMERA OPERATOR [facility] (CLIA #:[id number]) Comment: NEGATIVE TEST RESULT. A negative Cologuard [...] screened with both Cologuard and colonoscopy. (Beka Muller et al, N Engl J Med 2014;370(14):3075-4994) The normal value (reference range) for this assay is negative. COLOGUARD RE-SCREENING RECOMMENDATION: Periodic colorectal cancer screening is an important part of preventive healthcare for asymptomatic individuals at average risk for colorectal cancer. Following a negative Cologuard result, the [place] Cancer Society and U.S. Multi-Society Task Force screening guidelines recommend a Cologuard re-screening interval of 3 years. References: [place] [employer] Society Guideline for Colorectal Cancer Screening: https://www.cancer.org/cancer/buxye-rgwqix-xbziiw/kujuqsnzm-odwnostgo-eeoygte/ac s-rec ommendations.html.; Bert BELLA, Yasmine EDMONDSON, Marley RuizK, Colorectal Cancer Screening: Recommendations for Physicians and Patients from the U.S. Multi-Society Task Force on Colorectal Cancer Screening , Am J Gastroenterology 2017; 112:3221-5060. TEST DESCRIPTION: Composite algorithmic analysis of stool [...] (Beka Bartlett al, N Engl J Med 2014;370(14):8139-4568.) Cologuard may produce a false negative or false positive result (no colorectal cancer or precancerous polyp present at colonoscopy follow up). A negative Cologuard test result does not guarantee the absence of CRC or advanced adenoma (pre-cancer). The current Cologuard screening interval is every 3 years. ([place] Cancer Society and U.S. Multi-Society Task Force). Cologuard performance data in a 10,000 patient pivotal study using colonoscopy as the reference method can be accessed at the following location: www.Hycrete/results. Additional description of the Cologuard test process, warnings and precautions can be found at www.Vision Technologiesrd.com. Stool specimen (specimen) 06/17/2022 12:00 PM NEWS CAMERA OPERATOR 06/19/2022 10:25 AM NEWS CAMERA OPERATOR Jaycee Patino APRN CORPORATE STRATEGY ASSOCIATE LABORATORY Final Result [facility] [address] [place] [address], [facility] [phone] [facility] (CLIA #:[id number]) [address] [place] [address] * Hepatitis C (HIM External Result) (02/15/2022 2:40 PM CDT) Hep C HIM See Scanned Document [facility] Comment:non reactive 02/15/2022 2:40 PM CDT us Patient Reported LAB - HIM EXTERNAL RESULT Final Result Performing Organization Address City/State/[facility] de Phone Number [email or web address] [address] [address], [facility] [phone] from Last 3 Months or Most Recently Relevant to Health Maintenance Insurance BCBS OUT OF STATE BCBS OUT OF STATE Care Teams Central Sterile Technician Relationship Specialty Start Date End Date Sheree Draper DO [address] [place] [address] PCP - General Family Medicine 11/18/24 Julissa Alvarenga MD [address] [address] Assigned PCP 01/09/24
--- OUTSIDE RECORDS SUMMARY | 2024-11-21 05:00 | XMS_ITS | Encounter Summary ---
Author Organization [facility] Address [address] [place] [address] Care Team Providers Care Production Operations Engineer Name Role Phone Jaycee Patino APRN PHOTO LAB SPECIALIST Primary Care Provide r + Jaycee Patino APRN, CNP Unavailable [phone] Modesta Guillen MD Unavailable [phone] Reji Max MD Unavailable Jaycee Ken MD Unavailable [phone] [facility] Unavailable [phone] Modesta Guillen MD Unavailable [phone] Julissa Alvarenga MD Primary Care Provider [phone] Julissa Alvarenga MD Unavailable [phone] Sheree Draper DO Primary Care Provider [phone] Encounter Details Date Type Department Care Team (Late st Contact Info) Description 07/04/2022 [facility] [place] [address] [place] [address] [place] Social History Tobacco Use [...] Coronavirus/COVID-19? No / Unsure 07/04/2022 10:58 AM SECURITY ASSISTANT documented as of this encounter Plan of Treatment Not on file documented as of this encounter Visit Diagnoses Not on filedocumented in this encounter Additional Health Concerns Assessment Noted Time PHQ-9 Depression Total Score: 5 06/04/19 8:18 AM SECURITY ASSISTANT documented as of this encounter Care Teams Production Operations Engineer Relationship Specialty Start Date End Date Jaycee Patino APRN PHOTO LAB SPECIALIST [address] [place] [address] PCP - General Family Medicine 05/31/22 12/08/23 Julissa Alvarenga MD [address] [place] [address] PCP - General Family Medicine 12/09/23 11/17/24 Sheree Draper DO [address] [place] [address] PCP - General Family Medicine 11/18/24 Jaycee Patino APRN PHOTO LAB SPECIALIST [address] [place] [address] Assigned PCP 06/15/22 09/20/22 Modesta Guillen MD ORTHOPAEDIC SURGERY [address] [place] [address] Assigned Musculoskeletal Provider 07/13/22 06/11/23 Reji Max MD [address] [place] [address] Assigned Surgical Provider 07/13/22 Jaycee Ken MD [address] [place] [address] Assigned PCP 09/21/22 06/11/23 [facility] [address] [place] [address] Assigned PCP 06/12/23 01/08/24 Modesta Guillen MD ORTHOPAEDIC SURGERY [facility] [address] [address] Assigned Musculoskeletal Provider 06/20/23 01/08/24 Julissa Alvarenga MD [address] [facility] [place] [place] [address] Assigned PCP 01/09/24 documented as of this encounter
--- OUTSIDE RECORDS SUMMARY | 2024-11-21 05:00 | XMS_ITS | Encounter Summary ---
Author Organization [facility] Address [address] [place] [address] Care Team Providers Care Element Winding Machine Tender Name Role Phone Jaycee Patino APRN COMPRESSOR STATION OPERATOR Primary Care Provide r Jaycee Patino APRN, CNP Unavailable [phone] Modesta Guillen MD Unavailable [phone] Reji Max MD Unavailable Jaycee Ken MD Unavailable [phone] [facility] Unavailable [phone] Modesta Guillen MD Unavailable [phone] Julissa Alvarenga MD Primary Care Provider [phone] Julissa Alvarenga MD Unavailable [phone] Sheree Draper DO Primary Care Provider + [phone] Encounter Details Date Type Department Care Team (Late st Contact Info) Description 07/22/2022 [facility] Medical Advice [facility] [place] [address] [facility] [address] [place] [address] Modesta Guillen MD ORTHOPAEDIC SURGERY [address] [address] Social History Tobacco Use Types [...] Coronavirus/COVID-19? No / Unsure 07/08/2022 1:12 PM LUMBER BEARER documented as of this encounter Miscellaneous Notes * Telephone Encounter - Minoo Taylor ATC - 07/26/2022 7:35 AM LUMBER BEARER Patient sent additional telephone encounter regarding this information on 07/25/22. Please see most recent encounter for most up to date information. Minoo Taylor MBA, ATC ER BEARER documented in this encounter Plan of Treatment Not on file documented as of this encounter Visit Diagnoses Not on filedocumented in this encounter Additional Health Concerns Assessment Noted Time PHQ-9 Depression Total Score: 5 06/04/19 8:18 AM LUMBER BEARER documented as of this encounter Care Teams Element Winding Machine Tender Relationship Specialty Start Date End Date Jaycee Patino APRN COMPRESSOR STATION OPERATOR [address] [address] PCP - General Family Medicine 05/31/22 12/08/23 Julissa Alvarenga MD [address] [address] PCP - General Family Medicine 12/09/23 11/17/24 Sheree Draper DO [address] [address] PCP - General Family Medicine 11/18/24 Jaycee Patino APRN COMPRESSOR STATION OPERATOR [address] [place] [address] Assigned PCP 06/15/22 09/20/22 Modesta Guillen MD ORTHOPAEDIC SURGERY [address] [place] [address] Assigned Musculoskeletal Provider 07/13/22 06/11/23 Reji Max MD [address] [place] [address] Assigned Surgical Provider 07/13/22 Jaycee Ken MD [address] [place] [address] Assigned PCP 09/21/22 06/11/23 [facility] [address] [place] [address] Assigned PCP 06/12/23 01/08/24 Modesta Guillen MD ORTHOPAEDIC SURGERY [address] [place] [address] Assigned Musculoskeletal Provider 06/20/23 01/08/24 Julissa Alvarenga MD [address] [place] [address] Assigned PCP 01/09/24 documented as of this encounter
--- OUTSIDE RECORDS SUMMARY | 2024-11-21 05:00 | XMS_ITS | Encounter Summary ---
Author Organization [facility] Address [address] [place] [address] Care Team Providers Care Rail Technician Name Role Phone Julissa Alvarenga MD Unavailable [phone] Sheree Draper DO Primary Care Provider [phone] Encounter Details Date Type Department Care Team (Latest Contact Info) Description 11/18/2024 Travel Social History Tobacco Use Types Packs/Day [...] re latives? Once a week 03/11/2024 Attends Muslim Services Not on file 03/11 Active Member of Clubs or Organizations Not on f ile 03/11/2024 Attends Club or Organization Meetings Not on andrew e 03/11/2024 Marital Status Not on file 03/11/2024 PHQ-2 Answer Date Recorded PHQ-2 Score 0 09/30/2024 [facility] [place] of Occupat ional Health - Occupational Stress [...] Total Score: 5 06/04/19 23 8:18 AM DRAW FRAME RUNNER documented as of this encounter Care Teams Rail Technician Relationship Specialty Start Date End Date Sheree Draper DO [address] [address] PCP - General Family Medicine 11/18/24 Julissa Alvarenga MD [address] [address] Assigned PCP 01/09/24 documented as of this encounter
--- OUTSIDE RECORDS SUMMARY | 2024-11-21 05:00 | XMS_ITS | Clinical Summary ---
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 8.6 g 4 Active amiodarone 200 mg tabletIndications: New onset atrial fibrillation (HC) Take 1 Tablet (200 mg) by mouth once daily. 60 Tablet 5 Active rivaroxaban (Xarelto) 20 mg tabletIndications: New onset atrial fibrillation (HC) Take 1 Tablet (20 mg) by mouth once daily with evening meal. 90 Tablet 3 5 Active metoprolol tartrate 50 mg tabletIndications: Preprocedural cardiovascular examination Take 2 Tablets (100 mg) by mouth one time. 5 025 Discontinu ed(*Med complete/R egimen complete/L evel of care change) nitroglycerin 0.4 mg sublingual tabletIndications: Preprocedural cardiovascular examination Place 2 Tablets (0.8 mg) under the tongue one time. 5 025 Discontinu ed(*Med complete/R egimen complete/L evel of care change) furosemide 20 mg tabletIndications: S/P ablation of atrial fibrillation Take 1 Tablet (20 mg) by mouth once daily if needed (fluid retention, weight gain) for up to 3 days. 3 Tablet 11/08/2024 7:16 AM CDT 025 Active Problems Problem Noted Date Diagnosed Date Paroxysmal atrial fibrillation 05/22/2023 BPH (benign prostatic hypertrophy) 03/22/2013 Degenerative arthritis of left knee 08/12/2008 Encounters Date Type Department Care Team Description 11/04/2024 1:07 PM CDT Anesthesia Event [facility] [address] [place] [address] Vinod Rutledge MD Luna, Diego, CRNA 11/04/2024 10:06 AM CDT - 11/05/2024 1:59 PM CDT Hospital Encounter [facility] [address] [place] [address] Niko Darby MD Augustin, Joshua Ryan, DO S/P ablation of atrial fibrillation (Primary Dx) Discharge Disposition: Home Self Care 11/04/2024 Travel 11/03/2024 Telephone [facility] [address] [place] [address] Stacie Castellanos RN Pre Procedure 10/29/2024 9:30 AM CDT Ancillary Procedure [facility] [address] [facility] [address] [place] [address] 10/29/2024 Travel 09/23/2024 Refill [facility] [address] [phone] Marbella Lester NP Refill Request (Amiodarone) 09/22/2024 Telephone [facility] [address] [phone] Niko Darby MD Procedure Scheduling 09/20/2024 Telephone [facility] [address] [phone] Niko Darby MD Procedure Questions 09/13/2024 4:30 PM CDT Office Visit [facility] [place] [address] [place] [phone] Niko Darby MD Follow Up (F/U. Pt states feeling good, no recent or current cardiac symptoms. Does have a list of questions ) 09/13/2024 Travel 09/12/2024 Refill [facility] [place] [facility] [address] [place] [address] Marbella Lester NP Refill Request (Xarelto) 09/10/2024 [...] Name Comments Diabetes Father Heart Disease Father [place] times 3 Hypertension Father Other Father stomach [...] Housing in the Last Year 1 05/20/2022 Interpersonal Safety Answer Date Record ed Are you being hit, kicked, p ushed or yelled at (see row info)? 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 Gender Identity Not on file Sexual Orientation Not on file Occupation Industry Job Start Date Job End Date Post Not on file Not on file Not on file Obstetrics History Last Filed Vital Signs Vital Sign Reading Time Taken Comments Blood Pressure 126/71 11/05/2024 7:35 AM CDT Pulse 74 11/05/2024 7:35 AM CDT Temperature 36.6 C (97.9 F) 11/05/2024 7:35 AM CDT Respiratory Rate 17 11/05/2024 7:35 AM CDT Oxygen Saturation 94% 11/05/2024 7:35 AM CDT Inhaled Oxygen Concentration - - Weight 135.1 kg (297 lb 12.8 oz) 2024 10:51 AM CDT Height 170.2 cm (5' 7) 11/04/2024 10:5 1 AM CDT Body Mass Index 46.64 11/04/2024 10:51 AM CDT Plan of Treatment Upcoming Encounters Date Type Department Care Team (Late st Contact Info) Description 01/31/2025 3:00 PM CDT Office Visit [facility] [address] [facility] [address] [place] [phone] Niko Darby MD [address] [place], [place] [phone] Health Maintenance Due Date Last Done Comments [...] 05/17/2021, 10/20/2020, Additional history exists Influenza Vaccine (#1) 2025 , 06/03/2022, 02/29/2020, Additional history exists BMI (ht and wt on same day) for age 18+ 09/13/2025 09/13/2024, 05/22/2023, 03/10/2023, Additional history exists Tetanus booster 01/01/2026 01/02/2016, 07/2004, 12/19/2004 Lipids for age 45-75 03/12/2028 03/12/2023, 09/26/2020, 11/29/2013 Colonoscopy through age 75 08/31/2033 09/01/2023 Hepatitis C screening for ag e 18-79 Completed 02/15/2022 Procedures Procedure Name Priority Date/Time Associated Diagnosis Comments EKG 12 LEAD Early AM 11/05/2024 6:55 AM CDT [facility] ACTIVATED CLOTTING TM CV Timed 11/04/2024 4:35 PM CDT CV PROCEDURE TO BE PERFORMED Routine 11/04/2024 4:03 PM CDT [facility] ACTIVATED CLOTTING TM CV Timed 11/04/2024 3:14 PM CDT [facility] ACTIVATED CLOTTING TM CV Timed 11/04/2024 2:43 PM CDT ENDOTRACHEAL TUBE Routine 11/04/2024 2:1 5 PM CDT ENDOTRACHEAL TUBE Routine 11/04/2024 2:1 5 PM CDT ENDOTRACHEAL TUBE Routine 11/04/2024 2:1 5 PM CDT [facility] ACTIVATED CLOTTING TM CV Timed 11/04/2024 2:12 PM CDT EP STUDY /ABLATION Routine 11/04/2024 1: 39 PM CDT EKG 12 LEAD Preop 11/04/2024 11:25 AM CDT EXTRA TUBE GOLD/SST Today 11/04/2024 1 1:01 AM CDT CBC W PLT NO DIFF Preop 11/04/2024 11: 00 AM CDT BASIC METABOLIC PANEL Preop 11/04/2024 11:00 AM CDT SCAN-CARDIAC STRIP 11/04/2024 12 :[address] CARDIAC CORONARY ARTERIES CV DUAL READ Routine 10/29/2024 10:25 AM CDT Paroxysmal atrial fibrillation (HC) CT CARDIAC CORONARY ARTERIES RAD DUAL READ Routine 10/29/2024 10:25 AM CDT Paroxysmal atrial fibrillation (HC) EKG 12 LEAD Routine 09/13/2024 4:12 PM CDT Paroxysmal atrial fibrillation (HC) COLONOSCOPY SCREENING Routine 09/01/2023 8:19 AM CDT Screening for colon cancer LIPID PANEL Routine 03/12/2023 3:30 PM CDT New onset atrial fibrillation (HC) ANTI HCV Routine 02/15/2022 11:09 AM CDT Need for hepatitis C screening test from Last 3 Months or Most Recently Relevant to Health Maintenance Results * EKG (11/05/2024 6:55 AM CDT) Only the most recent of3 resultswithin the time period is included. Interpretation Sinus rhythm with 1st degree A-V block Left axis deviation Abnormal ECG When compared with ECG of 04-Nov-2024 11:25, Sinus rhythm has replaced Atrial fibrillation BEYOND NOW Ventricular Rate 79 BPM BEYOND NOW Atrial Rate 79 BPM BEYOND NOW P-R Interval 218 ms BEYOND NOW QRS Duration 96 ms BEYOND NOW QT 392 ms BEYOND NOW QTc 449 ms BEYOND NOW P [place] 52 degrees BEYOND NOW R [place] -30 degrees BEYOND NOW T [place] 23 degrees BEYOND NOW 11/05/2024 6:55 AM CDT 11/06/2024 4:14 PM CDT us Niko Darby MD EKG ORD Jeremias grace Result - Final Performing Organization Address City/[facility]/ZIP Co de Phone Number BEYOND NOW [place], [place] * (ABNORMAL) ACTIVATED CLOTTING TIME [id number] ACT (11/04/2024 4:35 PM CDT) Only the most recent of4 resultswithin the time period is included. ACTIVATED CLOTTING TIME, POCT 190(H) 74 - 125 sec 11/05/2024 1:13 AM CDT [facility] Blood BLOOD SPECIMEN / Unknown 11/04/2024 4:35 PM CDT 11/05/2024 1:13 AM CDT us Niko Darby MD HEMATOLOGY Fin al Result Performing Organization Address City/[facility]/ZIP Co de Phone Number [facility] [address] [place] [address], * EP Procedure to be Performed (11/04/2024 4:03 PM CDT) Narrative Niko Darby MD - 11/04/2024 4:03 PM CDT Niko Darby MD 11/04/2024 4:12 PM BRIEF PROCEDURE NOTE: Pre-procedural diagnosis: Paroxysmal atrial fibrillation. Procedure: PVI with PFA (Farapulse). Post-procedural diagnosis: Same. Elevated mean LA pressure of 27 mmHg at end of case (16 mmHg at beginning). Outcome: Successful. Access: RFV: 16.8FR x1. LFV: 9FR x1 andf 7FR x1. Complications: None. EBL: minimal Plan: -The right sided femoral sheath was removed in the EP lab with placement of a figure of eight suture. The EP team will remove the figure of eight suture in AM. -Pull left sided sheaths in PACU. -Bedrest for 3 hours after left groin sheath pull. -Resume rivaroxaban tonight. -Anticipate discharge in AM. -Furosemide 20 mg daily prn fluid retention. -Otherwise, no anticpated changes to outpatient medications upon discharge. -Follow-up with me in 6 months. Full report to follow in [facility]. Niko Darby MD, PhD Electrophysiology Staff Pager: [phone] 11/04/2024 4:04 PM Niko Darby MD IS CONSULTANT ORD Fin al Result * [facility] TUBE PR1, [facility] INSTRUMENT DISP PR10, [facility] STYLET PR1 (11/04/2024 2:15 PM CDT) Narrative Osvaldo Boswell CRNA - 11/04/2024 2:15 PM CDT Osvaldo Boswell CRNA 11/04/2024 2:17 PM Procedure: ETT Patient location during procedure: OR ETT Properties Mask Ventilation: oral airway Final Technique: video laryngoscopy Type: straight Location: oral Cuffed: yes Tube Size: 7.5 mm Stylet: yes Laryngoscope Blade: Glidescope Blade Size: 4 Cormack-Lehane Grade View: 1 Insertion Attempts: 1 Placement Verification: auscultation, end tidal CO2 and symmetrical chest wall movement Assessment: pharynx clear, atraumatic and dentition unchanged Secured at: 23 Measured From: teeth Bite Block: soft Difficulty: 1 (somewhat) us Vinod Rutledge MD ANESTHESIA PX NOTE ORD ERABLES Final Result * EP STUDY /ABLATION (11/04/2024 1:39 PM CDT) Anatomical Region Laterality Modality X-Ray Angiograph y, X-Ray Angiography 11/04/2024 1:39 PM CDT Narrative Transcriptions Niko Darby MD - 11/04/2024 7:28 PM CDT [facility] Electrophysiology Procedure Report Name: YAAKOV NAJERA Event Date: 11/04/2024 Silver ID #: [id number] Date: 1970 Gender: Male Age: 54 [facility] #: [id number] Procedure Performed By: NIKO DARBY [facility] Referring Physician: Summary / Conclusions VASCULAR ACCESS * Using ultrasound guidance and a percutaneous technique, the rightfemoral vein was accessed. Ultrasound was used to confirm vessel patency,localizing needle into the lumen of the vessel. For safety purposes, apicture was saved for the medical record. * Using ultrasound guidance and a percutaneous technique, the left femoralvein was accessed. Ultrasound was used to confirm vessel patency,localizing needle into the lumen of the vessel. For safety purposes, apicture was saved for the medical record. Pre-Operative Diagnosis ? Paroxysmal atrial fibrillation. Post-Operative Diagnosis ? Same as Pre-operative diagnosis Indications ? Same as Pre-operative diagnosis Consent & Athens Protocol [place] protocol was followed. TIME OUT conducted just prior tostarting procedure confirmed patient identity, site/side, procedure,patient position, and availability of correct equipment and implants (ifapplicable). The risks, benefits, and alternatives of the procedure were discussed withthe patient and written informed consent was obtained. Procedure Description CONCLUSIONS: 1. Successful catheter ablation of atrial fibrillation with pulmonaryvein isolation. 2. Sluggish AV node function. No evidence of dual AV node physiology. 3. Elevated mean LA pressure of 16 mmHg at the beginning of case and 27mmHg at the end of the procedure. PROCEDURES PERFORMED: Ultrasound guided vascular access. Right atrial electrogram recording. His bundle electrogram recording. Coronary sinus pacing. Coronary sinus electrogram recording. Right ventricular electrogram recording. Arrhythmia induction. Right atrial mapping. Left atrial mapping. Pulmonary vein ostial mapping with Farawave catheter. Three dimensional mapping: HOLLRite mapping system was used. Single transseptal catheterization with left atrial pressure monitoring. Pulsed field array ablation using Farapulse. Radiofrequency ablation. Intracardiac echocardiography (ICE). General Anesthesia. COMPLICATIONS: None. PROCEDURE DESCRIPTION: The patient was assessed by me and was found steffanie a suitable candidate for this procedure. The patient was sedated andintubated by anesthesiology who provided continuous general anesthesia andventilation during the case. After sterile preparation and localanesthesia with 1% Lidocaine and 0.25% Bupivacaine, a micropuncture needlewas used to puncture the femoral vessel noted below under directultrasound guidance. Using standard Seldinger technique, a guide wire wasadvanced into the vessel. Subsequently, a sheath was introduced over theguide wire. Electrode catheters were then introduced under fluoroscopicguidance into the heart for the purpose of pacing and electrogramrecording. This process was repeated for each separate electrode catheterwith location and positioning as noted in the Catheter Placement section.Coronary sinus catheterization was performed using a left femoral venousapproach. The electrode catheter was advanced into the superior rightatrium and then curved inferiorly with counterclockwise torque underfluoroscopic guidance to the posterior inferior right atrium and then intothe coronary sinus for the purpose of left atrial pacing and/orelectrogram recording. Transseptal catheterization was done via the rightfemoral vein. The short 8 Zimbabwean sheath in this vein was exchanged forthe long transseptal sheath. Over the long guide wire the transseptalsheath was advanced into the superior vena cava. A Brockenbrough needlewas passed thru the sheath and the sheath/dilator/needle combination wasslowly withdrawn into the right atrium with fluoroscopic observation tovisualize the drop into the fossa ovalis. The needle was then advancedout of the sheath into the atrial septum and into the left atrium whilemonitoring biplane fluoroscopy, ICE and continuous pressure monitoring(mean LA pressure: 16 mmHg at the beginning and 27 mmHg at the end of theprocedure). The dilator was then advanced into the left atrium. Thesheath was then advanced over the dilator into the left atrium and thenexchanged over the wire for the Faradrive sheath. While catheters/sheathswere present in the left atrium, heparin was administered to achieve anACT around 350-400 seconds. After dilating the transeptal puncture sitewith the Faradrive sheath, it was withdrawn into the right atrium and theICE catheter was advanced into the LA. The Faradrive sheath was thenadvanced back into the LA. The Farawave catheter was then advanced intothe left atrium. When introducing and removing any catheter from theFaradrive sheath, sheath management was stressed. The AutoUnclethree dimensional mapping system was used during the procedure for mappingthe anatomy. The LSPV was wired and the catheter was placed in basketconfiguration. The basket was then advanced to achieve good contact withthe os as evidenced by ICE, fluoroscopy and EnSite data. Prior todelivery of energy, 0.4 mg of atropine was administered and paralysis wasensured. PFA energy was administered and after rotating the Farawavecatheter slightly, energy was administered a second time. The Farawavecatheter was changed to flower configuration and ablation was performedin similar fashion. Subsequently, each vein was approached in flowerconfiguration, the vein was wired and the catheter was changed to basketconfiguration. The ablation process was then repeated for each vein.Further PFA applications were administered as necessary to ensure completecoverage around the veins to achieve pulmonary vein isolation as evidencedby lack of signal in these areas and lack of capture indicating exitblock. Total number of delivered lesions: 42. An 8 Zimbabwean AcuNavIntracardiac Echocardiography (ICE) catheter was also inserted andechocardiography images were obtained continuously and analyzed throughoutthe procedure. ICE imaging was obtained with the catheter tip in the RAand LA at different times during the procedure. When the procedure wascompleted, the catheters were removed from the patient. Protamine wasadministered. The Faradrive sheath was removed in the EP lab withplacement of a figure if eight suture and manual pressure for hemostasis.The left sided sheaths will be removed in the PACU. There were nocomplications. Catheter Placement: -Right Atrium, His Bundle Region, Right Ventricle Liberty , Left atrium,Ablating and Mapping (Right Femoral Vein): 8 Zimbabwean Preface --> 16.8French Faradrive sheath, 12 [place]an Farawave catheter. -Coronary Sinus (Left Femoral Vein): 7 Zimbabwean sheath, 6 Zimbabwean decapolarcatheter. -Intracardiac echocardiography (ICE) (Left Femoral Vein): 9 FrenchSheath, 8 Zimbabwean AcuNav ICE catheter. Electrophysiology study and mapping results: The patient arrived to theEP lab in sinus rhythm. An EP study was performed during the procedure.Please see separate portion of procedure note for details in thisregard. Pulsed Field Ablation Site(s): Left atrium encircling lesions around all four pulmonary veins. Post-Ablation Data: Supraventricular tachycardia could not be induced. Entrance and exitblock were verified for all four pulmonary veins. Post-ablation ICEimaging demonstrated no pericardial effusion. Electrophysiology Study Data Basic Intervals Study State Underlying Rhythm Cycle Length TX PA AH HV QRS [place] QRSMorphology Baseline NSR 939 223 Post Ablation NSR 744 200 Antegrade 1:1 AV Node Function Study State Pacing Site AV Node SCL 1:1 AH HV Dual AVN Physiology? AVNFast 1:1 AVN Slow 1:1 Wenkebach Cycle Length Baseline CS 510 500 Ablation Data Atrial Fibrillation Energy Source Ablation Catheter Used Rhythm During Ablation # of AttemptsMax Myers Max Temp. Result Other Farawave NSR Success Comments: Total pulses: RSPV 8, RIPV 12, LSPV 10, LIPV 12 Catheter Use Catheter Type Catheter Description Insertion Site Intracardiac Site SheathSize Sheath Type Sheath Description Diagnostic Decapolar CSL curve 2-8-2mm Left Femoral Vein CS 7 Fr StandardSidearm Diagnostic SoundStar 3D Diagnostic Ultrasound Catheter Left Femoral VeinHRA 9 fr Standard Sidearm Ablation Blazer II, 5 mm tip, Std Curve, Extended Distal shaft RightFemoral Vein Map/Abl 13 Fr Guide Faradrive Procedure(s) Performed ? 3D Mapping ? Ultrasound Site Rite Vascular Access ? A Fib/PV Isolation Ablation ? Intracardiac Echo Auxiliary Device Intracardiac Echo Used: Yes Mapping System 1: LISA Navix Procedure Detail Estimated Blood Loss: < 50 ml Specimen Collected: None Level of Sedation Achieved: See Anesthesia Note Total Flouro Time: 8.1 min INVOICE CLERK Total Flouro Dose: 20 mGy Transseptal Mean LA Pressure: 12 mmHg Staff Name Role Niko Darby Mainstreaming Facilitator Shanta Hunt RN Nurse Fang Jaramilloub [place] CVT Monitor Greg Purvis CVT Apartment Rental Agent Medications Ordered and Administered Start Time Stop Time Medication Dose Units Route Ordered By Given By 13:45 0.25% Bupivicaine 3 mL Subcut MD Niko Carmen MD 13:45 1% Lidocaine Hydrochloride 3 mL Subcut Verenice Carmen MD 13:48 0.25% Bupivicaine 3 mL Subcut MD Niko Carmen MD 13:48 1% Lidocaine Hydrochloride 3 mL Subcut Verenice Carmen MD 13:58 Heparin 17135 Units IV MD Shanta Carmen RN 14:06 Heparin 3000 Units IV MD Shanta Carmen, PRO 14:37 Heparin 3000 Units IV MD Shanta Carmen RN 15:52 Protamine 50 Mg IV MD Shanta Carmen, PRO The anesthesia service monitored the patient?s conscious sedation duringthe procedure. The medications listed above were verbally ordered by me and read back tome as documented above. Refer to the hemodynamic procedure log report for additional casedetails. electronically signed on 11/04/2024 7:28:57 PM with status of Final Niko Darby MD Mainstreaming Facilitator [facility] [address] [place] [address] (p) [phone](f) Niko Darby MD CV IMAGING Fin al Result * EXTRA TUBE GOLD/SST (11/04/2024 11:01 AM CDT) Blood BLOOD SPECIMEN / Unknown Extra Tube / Unknown 11/04/2024 11:01 AM CDT 11/04/2024 11:17 AM CDT us Niko Darby MD LABORATORY Fin al Result [facility] [address] [place] [address], [place] * CBC with Platelet no Diff (11/04/2024 11:00 AM CDT) WHITE BLOOD COUNT 8.2 4.5 - 11.0 thou/cu mm 11/04/2024 11:18 AM CDT [facility] RED BLOOD COUNT 5.25 4.30 - 5.90 mil/cu mm 11/04/2024 11:18 AM CDT [facility] HEMOGLOBIN 16.2 13.5 - 17.5 g/dL 11/04/2024 11:18 AM CDT [facility] HEMATOCRIT 49.2 37.0 - 53.0 % 11/04/2024 11:18 AM CDT [facility] MCV 94 80 - 100 fL 11/04/2024 11:18 AM CDT [facility] MCH 30.9 26.0 - 34.0 pg 11/04/2024 11:18 AM CDT [facility] MCHC 32.9 32.0 - 36.0 g/dL 11/04/2024 11:18 AM CDT [facility] RDW 13.0 11.5 - 15.5 % 11/04/2024 11:18 AM CDT [facility] PLATELET COUNT 241 140 - 440 thou/cu mm 11/04/2024 11:18 AM CDT [facility] MPV 10.6 6.5 - 11.0 fL 11/04/2024 11:18 AM CDT [facility] NRBC 0.0 % 11/04/2024 11:18 AM CDT [facility] ABS NRBC 0.0 thou /cu mm 11/04/2024 11:18 AM CDT [facility] Blood BLOOD SPECIMEN / Unknown IV Start / Unknown 11/04/2024 11:00 AM CDT 11/04/2024 11:10 AM CDT us Niko Darby MD HEMATOLOGY Fin al Result [facility] [address] [place] [address], * (ABNORMAL) Basic Metabolic Panel (11/04/2024 11:00 AM CDT) SODIUM 139 136 - 145 mmol/L 11/04/2024 11:39 AM CDT [facility] POTASSIUM 4.3 3.5 - 5.1 mmol/L 11/04/2024 11:39 AM T [facility] CHLORIDE 103 98 - 107 mmol/L 11/04/2024 11:39 AM T [facility] CO2,TOTAL 22 22 - 29 mmol/L 11/04/2024 11:39 AM T [facility] ANION GAP 14 5 - 18 11/04/2024 11:39 AM T [facility] GLUCOSE 114(H) 70 - 99 mg/dL 11/04/2024 11:39 AM T [facility] CALCIUM 9.2 8.8 - 10.4 mg/dL 11/04/2024 11:39 AM [facility] Comment: Reference ranges for this test were updated on 03/23/2024 to reflect our healthy population more accurately. Reference range changes are not retroactively applied to results, but previous results using the same methodology can be interpreted in the context of the new reference range. BUN 17 6 - 20 mg/dL 11/04/2024 11:39 AM [facility] CREATININE 1.12 0.70 - 1.20 mg/dL 11/04/2024 11:39 AM [facility] BUN/CREAT RATIO 15 10 - 20 11:39 AM [facility] eGFR 78(L) >90 mL/min/1. 73m2 11/04/2024 11:39 AM [facility] Comment:As of 2021, eG FR is calculated by the CKD-EPI creatinine equation without race adjustment. eGFR can be influenced by muscle mass, exercise, and diet. The reported eGFR is an estimation only and is only applicable if the renal function is stable. Blood BLOOD SPECIMEN / Unknown IV Start / Unknown 11/04/2024 11:00 AM CDT 11/04/2024 11:10 AM CDT Niko Darby MD CHEMISTRY Fin al Result [facility] [address] [place] [address], [place] * SCAN-CARDIAC STRIP (11/04/2024 12:00 AM CDT) Narrative 11/04/2024 12:00 AM CDT Ordered by an unspecified provider. us Other Clinical Staff OTHER Final Resul t * CT CARDIAC CORONARY ARTERIES CV DUAL READ (10/29/2024 10:25 AM CDT) Anatomical Region Laterality Modality HEART Computed Tomogra phy 10/29/2024 10:0 7 AM CDT Narrative 10/29/2024 2:48 PM CDT Images from the original result were not included. [facility] Cardiac CT Report Name: YAAKOV NAJERA JR : Scan Date: Accession Number: [id number] Status: Final Electronically signed by Cirilo Land 14:47:40 VITALS HEIGHT: 67 in (170 cm) WEIGHT: 299 lbs (136 kgs) BSA: 2.40 m^2 BMI: 47 kg/m^2 BP: 131 / 86 mmHg BASELINE HR: 83 BPM HEART RHYTHM: Atrial fibrillation FINAL IMPRESSION 1. Normal epicardial coronary arteries without atherosclerosis, stenosis, or anomaly. 2. Coronary calcium score is 0. 3. Three right-sided and two left-sided pulmonary veins (see below). - RMPV arises early from the RUPV. - Left-sided veins share a short common antrum. 4. No MARYLU thrombus. 5. Normal pericardium. Please see separate radiology report for noncardiac findings. STUDY QUALITY: Study quality is excellent. CAD-RADS: CAD-RADS Classification 0 (0% stenosis). CALCIUM SCORING: Total coronary artery calcium score 0. DOMINANCE: Right dominant coronary artery system. LM: The LM is normal. LAD: The LAD is normal. D1: The first diagonal is normal. D2: The second diagonal is normal. LCX: The LCx is normal. OM1: The first obtuse marginal is normal. RCA: The RCA is normal. RIGHT PDA: The right PDA is normal. RIGHT PLB: The right posterolateral branch is normal. LV/RV SEPTUM: The LV/RV septum is normal. LA/RA SEPTUM: The LA/RA septum is normal. OTHER FINDINGS: Thoracic aorta: No acute pathology Pericardium: No effusion. Left atrium: Normal contrast opacification. Atrial septum: No evidence of shunt. Pulmonary veins: Three right-sided and two left-sided pulmonary veins (see below). - RMPV arises early from the RUPV. - Left-sided veins share a short common antrum. CALCIUM SCORING TABLE . . Number of Lesions Pattern of Calcium Volume Total Score +-------+ + +--------+ + LM 0 0 LAD 0 0 LCx 0 0 RCA 0 0 Ramus 0 0 '-------+ + +--------+ ' SCAN INFO TEST TYPE: Calcium score, Coronary CT Angiography SCANNER BACK TENDER FOURDRINIER: [employer] SCANNER MODEL: Unblab DOSE REDUCTION ALGORITHM: Prospective/Wtpl-xak-htjst, High-pitch (flash) PHASE UNITS: ms START PHASE: 280 ms END PHASE: 400 ms EKG GATED: Yes PRE-CONTRAST: Yes POST-CONTRAST: Yes 3D RECONSTRUCTION: Yes GENERAL CONTRAST AGENT CONTRAST AGENT USED?: Yes TYPE: Omnipaque 350 DOSE: 140 ml RATE: 8.5 ml/s ROUTE: IV ARM: Right BOLUS TECHNIQUE: Biphasic SERUM CREATININE: 1.07 mg/dL GFR: 76.26 ml/min/1.73m^2 CT CONTRAST REACTION: None MEDICATION ADMINISTERED DURING SCAN TYPE: Nitroglycerin, sublingual, B-Blockers NITROGLYCERIN, TOTAL DOSE: 0.8 mg B-CHEIKH TYPE: Oral B-CHEIKH NAME, ORAL: Metoprolol tartrate B-BLOCKERS, ORAL DOSE: 100 mg RADIATION DOSE DLP: 579 KV: 120 SETUP PATIENT TYPE: Outpatient REASON(S) FOR SCAN: Other... OTHER, SPECIFY:: afib, cor/pv REFERRING PHYSICIAN: NIKO DARBY TECHNOLOGIST: Jennifer Miramontes BILLING Patient Account [id number] ICD10 Codes I48.0 Report generated by [employer], a product of [employer] us Niko Darby MD CT Fin al Result * CT CARDIAC CORONARY ARTERIES RAD DUAL READ (10/29/2024 10:25 AM CDT) Anatomical Region Laterality Modality HEART Computed Tomogra phy 10/29/2024 6:03 PM CDT Narrative 10/29/2024 6:03 PM CDT For Patients: As a result of the Cures Act, medical imaging exams and procedure reports are released immediately into your electronic medical record. You may view this report before your referring provider. If you have questions, please contact your health care provider. THIS IS THE RADIOLOGY OVER READ REPORT OF A DUAL READ STUDY. READ THE SEPARATE CARDIOLOGY REPORT FOR CARDIOVASCULAR FINDINGS. REPORTS MAY BE FINALIZED AT DIFFERENT TIMES. COMPARISON : No comparison. TECHNIQUE : Please see cardiology report for technical information. This exam is being performed in conjunction with the services provided by the [facility] ([facility]). INDICATION: Cardiac over-read. FINDINGS: Aorta: This is reported by cardiology. Mediastinum: No adenopathy. Small benign mediastinal lymph node calcification. Pulmonary arteries: Bolus timing may limit evaluation. Visualized/opacified pulmonary arteries demonstrate no filling defects. Lungs and pleural structures: Clear with no pleural effusions or suspicious nodules. Miscellaneous: No acute or suspicious skeletal or upper abdominal imaging abnormality. IMPRESSION : 1. See separate cardiology report for cardiac findings. 2. No significant extra cardiac imaging abnormality. Please note that all CT scans at this facility use dose modulation, iterative reconstruction, and/or weight-based dosing when appropriate to reduce radiation dose to as low as reasonably achievable. Dictated by Terry Higgins MD @ 10/29/2024 6:03:56 PM (Electronically Signed) Procedure Note Terry Higgins MD - 10/29/2024 For Patients: As a result of the Cures Act, medical imagingexams and procedure reports are released immediately into your electronicmedical record. You may view this report before your referring provider.If you have questions, please contact your health care provider. THIS IS THE RADIOLOGY OVER READ REPORT OF A DUAL READ STUDY. READ THESEPARATE CARDIOLOGY REPORT FOR CARDIOVASCULAR FINDINGS. REPORTS MAY BEFINALIZED AT DIFFERENT TIMES. COMPARISON : No comparison. TECHNIQUE : Please see cardiology report for technical information. This exam is being performed in conjunction with the services provided bythe [facility] ([facility]). INDICATION: Cardiac over-read. FINDINGS: Aorta: This is reported by cardiology. Mediastinum: No adenopathy. Small benign mediastinal lymph nodecalcification. Pulmonary arteries: Bolus timing may limit evaluation. Visualized/opacified pulmonary arteriesdemonstrate no filling defects. Lungs and pleural structures: Clear with no pleural effusions orsuspicious nodules. Miscellaneous: No acute or suspicious skeletal or upper abdominal imagingabnormality. IMPRESSION : 1. See separate cardiology report for cardiac findings. 2. No significant extra cardiac imaging abnormality. Please note that all CT scans at this facility use dose modulation,iterative reconstruction, and/or weight-based dosing when appropriate toreduce radiation dose to as low as reasonably achievable. Dictated by eTrry Higgins MD @ 10/29/2024 6:03:56 PM (Electronically Signed) Niko Darby MD CT Fin al Result * (ABNORMAL) LIPID PANEL (03/12/2023 3:30 PM CDT) CHOLESTEROL,TOTAL 210(H) 100 - 199 mg/dL 03/13/2023 8:05 AM T [facility] Comment: Cholesterol, Total Reference Ranges Desirable <200 mg/dL Borderline 200-239 mg/dL High >=240 mg/dL TRIGLYCERIDES 128 <150 mg/dL 03/13/2023 8:05 AM CDT [facility] HDL CHOLESTEROL 45 >40 mg/dL 8:05 AM T [facility] NON-HDL CHOLESTEROL 165(H) <145 mg/dl 03/13/2023 8:05 AM T [facility] CHOL/HDL RATIO 4.67(H) <4.50 03/13/2023 8:05 AM T [facility] LDL CHOLESTEROL 139(H) <=130 mg/dL 03/13/2023 8:05 AM T [facility] VLDL CHOLESTEROL 26 <=30 mg/dL 03/13/2023 8:05 AM T [facility] PROVIDER ORDERED STATUS RANDOM 03/13/2023 8:05 AM T [facility] Blood BLOOD SPECIMEN / Unknown Venipuncture / Unknown 03/12/2023 3:30 PM CDT 03/12/2023 3:31 PM CDT Reagan Onofre MD CHEMISTRY Final Result [facility] [address] [place] [address], [place] * ANTI HCV (02/15/2022 11:09 AM CDT) HEPATITIS C ANTIBODY Non-React augusta Non-React augusta 02/15/2022 8:18 PM CDT [facility] Comment:Antibodies to HCV no t detected; does not exclude the possibility of exposure to HCV. Blood BLOOD SPECIMEN / Unknown Venipuncture / Unknown 02/15/2022 11:09 AM CDT 02/15/2022 11:09 AM CDT Lupis AYON SEND OUTS Final R esult [facility] [address] [place] [address], from Last 3 Months or Most Recently Relevant to Health Maintenance Insurance [facility] NON-MT-ITS Advance Directives * Full Code (Latest Code Status on File) Date Activated Date Inactivated Comments 11/04/2024 4:10 PM 11/05/2024 4:04 PM Question Answer Comments Code Status Discussion: Other * Full Code Date Activated Date Inactivated Comments 04/04/2023 1:02 PM 04/04/2023 4:48 PM Question Answer Comments Code Status Discussion: Other Care Teams Deskidding Machine Operator Relationship Specialty Start Date End Date Lupis Juan PA [address] [place] [address] PCP - General Family Practice 10/31/15
--- OUTSIDE RECORDS SUMMARY | 2024-11-21 05:00 | XMS_ITS | Encounter Summary ---
Author Organization [facility] Address [address] [place] [address] Care Team Providers Care Loan Specialist Name Role Phone Jaycee Patino APRN MEDICAL APPARATUS MODEL MAKER Primary Care Provide r Jaycee Patino APRN, CNP Unavailable [phone] Modesta Guillen MD Unavailable [phone] Reji Max MD Unavailable Jaycee Ken MD Unavailable [phone] [facility] Unavailable + [phone] Modesta Guillen MD Unavailable [phone] Julissa Alvarenga MD Primary Care Provider [phone] Julissa Alvarenga MD Unavailable [phone] Sheree Draper DO Primary Care Provider + [phone] Encounter Details Date Type Department Care Team (Late st Contact Info) Description 07/15/2022 [facility] [place] [address] [facility] [address] [place] [address] Modesta Guillen MD ORTHOPAEDIC SURGERY [address] [address] Social History Tobacco Use Types [...] Coronavirus/COVID-19? No / Unsure 07/08/2022 1:12 PM CUTTER INSPECTOR documented as of this encounter Miscellaneous Notes * Telephone Encounter - Modesta Guillen MD - 07/17/2022 10:58 AM CUTTER INSPECTOR Work letter printed and signed. Ready to be faxed to [place]. Modesta Jefferson MD, [facility] ER INSPECTOR * Telephone Encounter - Minoo Taylor - 07/16/2022 8:29 AM CST Please see patient's request for work letter for employer allowing him to return to work on 07/24/22 without restrictions and advise. Minoo Taylor MBA, ATC ER INSPECTOR documented in this encounter Plan of Treatment Not on file documented as of this encounter Visit Diagnoses Not on filedocumented in this encounter Additional Health Concerns Assessment Noted Time PHQ-9 Depression Total Score: 5 06/04/19 8:18 AM CUTTER INSPECTOR documented as of this encounter Care Teams Loan Specialist Relationship Specialty Start Date End Date Jaycee Patino APRN CNP [address] [id number] PCP - General Family Medicine 05/31/22 12/08/23 Julissa Alvarenga MD [address] [address] PCP - General Family Medicine 12/09/23 11/17/24 Sheree Draper DO [address] [place] [address] PCP - General Family Medicine 11/18/24 Jaycee Patino APRN MEDICAL APPARATUS MODEL MAKER [address] [facility] [place] [address] Assigned PCP 06/15/22 09/20/22 Modesta Guillen MD ORTHOPAEDIC SURGERY [address] [place] [address] Assigned Musculoskeletal Provider 07/13/22 06/11/23 [place] [address] [place] [address] Assigned Surgical Provider 07/13/22 Jaycee Ken MD [address] [place] [address] Assigned PCP 09/21/22 06/11/23 [facility] [address] [place] [address] Assigned PCP 06/12/23 01/08/24 Modesta Guillen MD ORTHOPAEDIC SURGERY [address] [place] [address] Assigned Musculoskeletal Provider 06/20/23 01/08/24 Julissa Alvarenga MD [address] [address] Assigned PCP 01/09/24 documented as of this encounter
--- OUTSIDE RECORDS SUMMARY | 2024-11-21 05:00 | XMS_ITS | Encounter Summary ---
Author Organization [facility] Address [address] [place] [address] Care Team Providers Care Toeing Stockings Name Role Phone Jaycee Patino APRN [facility] Primary Care Provide r Modesta Guillen MD Unavailable [phone] Reji Max MD Unavailable BritJaycee vides MD Unavailable [phone] [facility] Unavailable + [phone] Modesta Guillen MD Unavailable [phone] Julissa Alvarenga MD Primary Care Provider [phone] Julissa Alvarenga MD Unavailable [phone] Sheree Draper DO Primary Care Provider [phone] Encounter Details Date Type Department Care Team (Late st Contact Info) Description 02/25/2023 [facility] Advice [facility] [address] [place] [address] Dayami Calloway ATC Social History Tobacco Use Types Packs/Day Years [...] Total Score: 5 06/04/19 23 8:18 AM HOST HOSTESS documented as of this encounter Care Teams Toeing Stockings Relationship Specialty Start Date End Date Jaycee Patino APRN CNP [address] [place] [address] PCP - General Family Medicine 05/31/22 12/08/23 Julissa Alvarenga MD [address] [place] [address] PCP - General Family Medicine 12/09/23 11/17/24 Sheree Draper DO [address] [place] [address] PCP - General Family Medicine 11/18/24 Modesta Guillen MD ORTHOPAEDIC SURGERY [facility] [address] [address] Assigned Musculoskeletal Provider 07/13/22 06/11/23 Reji Max MD [address] [place] [address] Assigned Surgical Provider 07/13/22 Jaycee Ken MD [address] [place] [address] Assigned PCP 09/21/22 06/11/23 [facility] [address] [place] [address] Assigned PCP 06/12/23 01/08/24 Modesta Guillen MD ORTHOPAEDIC SURGERY [address] [place] [address] Assigned Musculoskeletal Provider 06/20/23 01/08/24 Julissa Alvarenga MD [address] [place] [address] Assigned PCP 01/09/24 documented as of this encounter
--- OUTSIDE RECORDS SUMMARY | 2024-11-21 05:00 | XMS_ITS | Encounter Summary ---
Author Organization [facility] Address [address] [place] [address] Care Team Providers Care Associate Professor Of Church Music Name Role Phone Jaycee Patino APRN, CNP Primary Care Provide r Jaycee Patino APRN, CNP Unavailable [phone] Modesta Guillen MD Unavailable [phone] Reji Max MD Unavailable Jaycee Ken MD Unavailable [phone] [facility] Unavailable [phone] Modesta Guillen MD Unavailable [phone] Julissa Alvarenga MD Primary Care Provider [phone] Julissa Alvarenga MD Unavailable [phone] Sheree Draper DO Primary Care Provider [phone] Reason for Visit * Reason Onset Date Comments Refill Request 07/01/2022 Encounter Details Date Type Department Care Team (Late st Contact Info) Description 07/01/2022 [facility] Refill [address] [address] Jaycee Patino APRN LABORER MINE [address] [place], [place] [address] Refill Request Social History Tobacco Use Types [...] Coronavirus/COVID-19? No / Unsure 07/04/2022 10:58 AM MANAGER PEST documented as of this encounter Plan of Treatment Not on file documented as of this encounter Visit Diagnoses Diagnosis Muscle spasm- Primary Spasm of muscle SOB (shortness of breath) Shortness of breath documented in this encounter Additional Health Concerns Assessment Noted Time PHQ-9 Depression Total Score: 5 06/04/19 8:18 AM MANAGER PEST documented as of this encounter Care Teams Associate Professor Of Church Music Relationship Specialty Start Date End Date Jaycee Patino APRN LABORER MINE [address] [address] PCP - General Family Medicine 05/31/22 12/08/23 Julissa Alvarenga MD [address] [address] PCP - General Family Medicine 12/09/23 11/17/24 Sheree Draper DO [address] [address] PCP - General Family Medicine 11/18/24 Jaycee Patino APRN LABORER MINE [address] [address] Assigned PCP 06/15/22 09/20/22 Modesta Guillen MD ORTHOPAEDIC SURGERY [address] [place] [address] Assigned Musculoskeletal Provider 07/13/22 06/11/23 Reji Max MD [address] [place] [address] Assigned Surgical Provider 07/13/22 Jaycee Ken MD [address] [place] [address] Assigned PCP 09/21/22 06/11/23 [facility] [address] [place] [address] Assigned PCP 06/12/23 01/08/24 Modesta Guillen MD ORTHOPAEDIC SURGERY [address] [place] [address] Assigned Musculoskeletal Provider 06/20/23 01/08/24 Julissa Alvarenga MD [address] [place] [address] Assigned PCP 01/09/24 documented as of this encounter
--- OUTSIDE RECORDS SUMMARY | 2024-11-21 05:00 | XMS_ITS | Encounter Summary ---
Author Organization [facility] Address [address] [place] [address] Care Team Providers Care Lineman Service Or Work Dispatcher Name Role Phone Jaycee Patino APRN AIRCRAFT SHEET METAL MECHANIC Primary Care Provide r Jaycee Patino APRN, CNP Unavailable [phone] Modesta Guillen MD Unavailable [phone] Reji Max MD Unavailable Jaycee Ken MD Unavailable [phone] [facility] Unavailable + [phone] Modesta Guillen MD Unavailable [phone] Julissa Alvarenga MD Primary Care Provider [phone] Julissa Alvarenga MD Unavailable [phone] Sheree Draper DO Primary Care Provider + [phone] Encounter Details Date Type Department Care Team (Late st Contact Info) Description 07/25/2022 [facility] [place] [address] [facility] [address] [place] [address] Modesta Guillen MD ORTHOPAEDIC SURGERY [address] [address] Social History Tobacco Use Types [...] Coronavirus/COVID-19? 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 documented as of this encounter Plan of Treatment Not on file documented as of this encounter Visit Diagnoses Not on filedocumented in this encounter Additional Health Concerns Assessment Noted Time PHQ-9 Depression Total Score: 5 06/04/19 8:18 AM MAINTENANCE TEAM MEMBER documented as of this encounter Care Teams Lineman Service Or Work Dispatcher Relationship Specialty Start Date End Date Jaycee Patino APRN AIRCRAFT SHEET METAL MECHANIC [address] [place] [address] PCP - General Family Medicine 05/31/22 12/08/23 Julissa Alvarenga MD [address] [place] [address] PCP - General Family Medicine 12/09/23 11/17/24 Sheree Draper DO [address] [place] [address] PCP - General Family Medicine 11/18/24 Jaycee Patino APRN AIRCRAFT SHEET METAL MECHANIC [address] [address] Assigned PCP 06/15/22 09/20/22 Modesta Guillen MD ORTHOPAEDIC SURGERY [address] [place] [address] Assigned Musculoskeletal Provider 07/13/22 06/11/23 Reji Max MD [address] [place] [address] Assigned Surgical Provider 07/13/22 Jaycee Ken MD [address] [place] [address] Assigned PCP 09/21/22 06/11/23 [facility] [address] [place] [address] Assigned PCP 06/12/23 01/08/24 Modesta Guillen MD ORTHOPAEDIC SURGERY [facility] [address] [address] Assigned Musculoskeletal Provider 06/20/23 01/08/24 Julissa Alvarenga MD [address] [place] [address] Assigned PCP 01/09/24 documented as of this encounter
--- NOTE | 2024-11-21 05:29 | CRLHL7_ITS ---
For Patients: As a result of the Century Cures Act, medical imaging exams and procedure reports are released immediately into your electronic medical record. You may view this report before your referring provider. If you have questions, please contact your health care provider. INDICATION: Chest pain, history of ablation COMPARISON: 10/16/2024 TECHNIQUE: PA and lateral 2 view chest. FINDINGS: Lung volumes are good. Unchanged right upper lobe nodule. No new consolidation or opacities. Mildly prominent central vascular markings without peripheral septal lines. No pleural effusion. No pneumothorax. No pneumomediastinum. Normal cardiomediastinal silhouette. Bones: Normal for age. IMPRESSION: Mild pulmonary vascular congestion. No significant edema. Dictated by Rachel Ramey MD @ 11/21/2024 5:54:06 AM (Electronically Signed)
[2024-11-21] MEDS: NITROGLYCERIN 0.4 MG TAB.SUBL SUBLINGUAL (05:30)
[2024-11-21 05:37] LABS: Hematocrit 43.5 % (37.0-53.0); Hemoglobin* 14.5 gm/dL (13.5-17.5); Immature Granulocytes Abs Auto 0.03 K/uL (0.00-0.30); Immature Granulocytes Pct Auto 0.3 %; Mean Corpuscular HGB Conc 33 gm/dL (32-36); Mean Corpuscular Hemoglobin 32 pg (26-34); Mean Corpuscular Volume 95 fL (80-100); RDW Coefficient of Variation % 12.4 % (11.5-15.5); Red Blood Count 4.58 m/uL (4.30-5.90); White Blood Count* 9.54 K/uL (4.50-11.00)
[2024-11-21 05:38] LABS: Troponin, Point-of-Care* 0.00 ng/ml (0.01-0.04)
[2024-11-21 05:39] LABS: Albumin* 4.1 g/dL (3.3-5.0); Chloride* 106 mmol/L (96-114); Sodium* 140 mmol/L (135-149)
[2024-11-21 05:40] LABS: Potassium* 4.3 mmol/L (3.6-5.1)
--- NOTE | 2024-11-21 05:41 | ED_ITS ---
HPI - Chest Pain General Chief Complaint: Chest Pain Stated Complaint: chest pain Time Seen by Provider: 11/21/24 05:17 Source: patient Mode of arrival: ambulatory Limitations: no limitations History of Present Illness HPI narrative: 54-year-old male presents to the emergency department with in 5 hour history of chest pain. 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 No specific trauma or injury. No fever or productive cough. Chest pain was initially dull achy and diffuse in his now sharp at the bilateral rib area with inspiration. Feels like he cannot take a deep breath, oxygen saturations noted to be normal in triage. Symptoms are not really exertional. He does have a notable prior history of AFib and is status post ablation 2 weeks ago. Reports that the procedure was uncomplicated and he continues to take his Xarelto. He has had 6 ED visits over the last couple of years for chest pain. All of the recent ones have been reassuring. No history of coronary artery disease. No history of heart failure, valvular or other structural heart disease. Denies feeling of abnormal heart rhythm. Did not try taking aspirin or any other interventions to help with symptoms. Denies nausea, abdominal pain or GI changes. Did have gout last week and took Tylenol and ibuprofen for symptoms, no prednisone use. 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 Past medical history is notable for history of AFib, his only home medication is Xarelto. Is not on any type of anti rhythmic or beta-chu. Allergy to iodine per his report. Reports that he does vape sometimes, no regular alcohol use. ROS is notable for the chest symptoms only, otherwise denies times 12 systems. Related Data Home Medications ?Medication ?Instructions ?Recorded ?Confirmed albuterol 04/30/22 rivaroxaban 20 mg tablet (Xarelto) 20 mg PO DAILY 03/2011/21/24 Allergies Allergy/AdvReac Type Severity Reaction Status Date / Time iodine Allergy Intermediate Verified 10/16/24 00:43 [facility] Medical History A-fib ?I48.91 - Unspecified atrial fibrillation (ICD-10) Social History Smoking Status: Never smoker Do you use any of these nicotine containing products: None Second hand tobacco smoke exposure: No How often do you have a drink containing alcohol: never How often do you have six or more drinks on one occasion: Never AUDIT-C Alcohol total score: 0 Non-prescribed substance use: marijuana (any form) Non-prescribed substance use details: THC pen Exam Const Vital Signs, click to edit/add: Vital Signs - 24 hr 11/21/24 05:05 11/21/24 05:09 11/21/24 05:11 Temperature 97.6 F Pulse Rate Pulse Rate [Pulse Oximeter] 96 Respiratory Rate 20 Blood Pressure Blood Pressure [Left Upper Arm] 155/73 H 152/84 H Blood Pressure [Right Upper Arm] 163/105 H Pulse Oximetry 96 Oxygen Delivery Method Room Air 11/21/24 05:15 11/21/24 05:16 11/21/24 05:17 Temperature Pulse Rate 97 98 97 Pulse Rate [Pulse Oximeter] Respiratory Rate 20 20 20 Blood Pressure 144/104 H Blood Pressure [Left Upper Arm] Blood Pressure [Right Upper Arm] Pulse Oximetry 97 97 97 Oxygen Delivery Method 11/21/24 05:30 11/21/24 05:32 11/21/24 05:33 Temperature Pulse Rate 96 100 105 H Pulse Rate [Pulse Oximeter] Respiratory Rate 17 20 20 Blood Pressure 154/87 H Blood Pressure [Left Upper Arm] Blood Pressure [Right Upper Arm] Pulse Oximetry 98 97 97 Oxygen Delivery Method 11/21/24 05:46 11/21/24 05:47 11/21/24 05:48 Temperature Pulse Rate 98 102 H 97 Pulse Rate [Pulse Oximeter] Respiratory Rate 18 20 18 Blood Pressure 146/82 H Blood Pressure [Left Upper Arm] Blood Pressure [Right Upper Arm] Pulse Oximetry 93 96 98 Oxygen Delivery Method 11/21/24 06:00 11/21/24 06:02 11/21/24 06:15 Temperature Pulse Rate 95 95 89 Pulse Rate [Pulse Oximeter] Respiratory Rate 18 20 16 Blood Pressure 130/84 Blood Pressure [Left Upper Arm] Blood Pressure [Right Upper Arm] Pulse Oximetry 96 96 95 Oxygen Delivery Method 11/21/24 06:17 Temperature Pulse Rate 91 Pulse Rate [Pulse Oximeter] Respiratory Rate 18 Blood Pressure 124/74 Blood Pressure [Left Upper Arm] Blood Pressure [Right Upper Arm] Pulse Oximetry 95 Oxygen Delivery Method Documenting provider has reviewed patient's vital signs: yes Common normals: alert Other: Anxious but answers questions appropriately. No intoxication. Will nourished, well hydrated. HENMT Common normals: moist oral mucous membranes and oropharynx normal Face and sinus: normal facial exam Mouth: oral and palatal mucosa normal Eye Common normals: conjunctivae normal General eye: normal appearance of both eyes Conjunctiva: conjunctiva(e) normal Neck & C-Spine Common normals: full ROM and no lymphadenopathy Chest Common normals: inspection of chest normal Other: Tenderness to palpation of bilateral lateral lower ribs. Resp Common normals: normal respiratory effort, no use of accessory muscles and clear to auscultation bilaterally Effort & inspection: able to speak in complete sentences Auscultation: clear to auscultation bilaterally Cardio Common normals: regular rate, regular rhythm, S1 normal heart sound, S2 normal heart sound and no murmurs Rate: regular rate Rhythm: regular rhythm Heart sounds: S1 normal and S2 normal GI Common normals: Normal to inspection, nondistended, normoactive bowel sounds present, soft to palpation, non-tender, no hepatosplenomegaly and no masses Palpation: soft and no hepatosplenomegaly Extremity Common normals: normal to inspection, normal capillary refill and no pedal edema Neuro Common normals: moves all extremities Sensorium/orientation: alert Speech: speech normal Motor exam: no tremor noted Psych Appearance: grossly normal Attitude: engaged Activity/motor behavior: appropriate eye contact Other: Mildly anxious but redirectable. Insight seems fair. Judgment does seem intact. Skin Common normals: no rashes or lesions noted General skin exam: no rashes or lesions noted Course Course ED Course: 54-year-old male presenting with nonexertional chest pain, worse with a deep breath. Suspicious for pleuritic-type chest pain but cannot exclude pulmonary embolism, pericarditis, acute coronary syndrome, heart failure, pleural effusion, atypical pneumonia, GI or musculoskeletal process, amongst others. Will place on cafeteria monitor, give 325 of aspirin. Who perform a nitroglycerin trial to see if this improves his symptoms. If not successful, we will then give 15 mg of IV Toradol. Will obtain EKG, chest x-ray and typical cardiac labs. Place peripheral IV. Will await clinical response to these trials of medication as above and findings. Consider Cardiology consult. Reevaluation(s) Time of Reevaluation #1: 06:32 Reevaluation #1: Patient reported improvement of symptoms with Toradol. He did not have a response to the nitroglycerin. He is sleeping when I review results with him, arouses easily to voice. We reviewed the results of the normal chest x-ray, normal labs. Patient is feeling better after the Toradol. I discussed that this is likely some type of pleuritic chest pain related to something musculoskeletal or inflammation of the lining of the legs from virus. Either way, there is no special treatment needed. He may continue Tylenol and ibu profen for mild discomfort and is advised that he is safe to return to unrestricted work duties at this time. Alarm symptoms reviewed that would warrant ED presentation. He verbalizes understanding and agreement. Written instructions provided Vital Signs Vital signs: Initial Vital Signs Temperature 97.6 F 11/21/24 05:05 Temperature Source Temporal Artery Scan 11/21/24 05:05 Pulse Rate 96 11/21/24 05:05 Respiratory Rate 20 11/21/24 05:05 Blood Pressure 163/105 H 11/21/24 05:05 Blood Pressure Mean 124 H 11/21/24 05:05 Blood Pressure Position Semi-Fowlers 11/21/24 05:05 Pulse Oximetry 96 11/21/24 05:05 Oxygen Delivery Method Room Air 11/21/24 05:05 Vital Signs Temperature 97.6 F 11/21/24 05:05 Pulse Rate 96 11/21/24 05:05 Respiratory Rate 20 11/21/24 05:05 Blood Pressure 163/105 H 11/21/24 05:05 Pulse Oximetry 96 11/21/24 05:05 Oxygen Delivery Method Room Air 11/21/24 05:05 Temperature 97.6 F 11/21/24 05:05 Pulse Rate 91 11/21/24 06:17 Respiratory Rate 18 11/21/24 06:17 Blood Pressure 124/74 11/21/24 06:17 Pulse Oximetry 95 11/21/24 06:17 Oxygen Delivery Method Room Air 11/21/24 05:05 Medications Administered Medications: Discontinued Medications Generic Name Dose Route Start Last Admin Trade Name Freq PRN Reason Stop Dose Admin Aspirin 324 mg 11/21/24 05:29 11/21/24 05:47 Aspirin 81 Mg Tab.Chew PO 11/21/24 05:30 324 mg ONCE ONE Administration Ketorolac Tromethamine 15 mg 11/21/24 05:29 11/21/24 05:48 Ketorolac 15 Mg/Ml Inj IVP 11/21/24 05:30 15 mg ONCE ONE Administration Nitroglycerin 0.4 mg 11/21/24 05:29 11/21/24 05:30 Nitroglycerin 0.4 Mg Tab.Subl SUBLINGUAL 11/21/24 05:30 0.4 mg ONCE ONE Administration MDM - Chest Pain Lab Data Attestation: I reviewed the patient's lab results. Lab results narrative: Labs all reassuring. Normal troponin, no signs of infection. No anemia. Liver enzymes stable for patient. C reactive protein only minimally elevated. BNP normal. Normal D-dimer. All reassuring labs. Labs: Lab Results 11/21/24 11/21/24 Range/Units 05:08 05:29 WBC 9.54 (4.50-11.00) K/uL RBC 4.58 (4.30-5.90) m/uL Hgb 14.5 (13.5-17.5) gm/dL Hct 43.5 (37.0-53.0) % MCV 95 (80-100) fL MCH 32 (26-34) pg MCHC 33 (32-36) gm/dL RDW Coeff of Daljit 12.4 (11.5-15.5) % Plt Count 233 (140-440) K/uL Neut % (Auto) 73.6 H (42.0-72.0) % Lymph % (Auto) 15.6 L (20-44) % Runnels % (Auto) 8.9 (0.0-11.0) % Eos % (Auto) 1.4 (0.0-7.0) % Baso % (Auto) 0.2 (0.0-3.0) % Neut # (Auto) 7.00 (1.7-7.0) K/uL Lymph # (Auto) 1.50 (0.90-2.90) K/uL Runnels # (Auto) 0.80 (0.00-0.90) K/UL Eos # (Auto) 0.13 (0.00-0.50) K/uL Baso # (Auto) 0.02 (0.00-0.30) K/uL Abs Immat Gran (auto) 0.03 (0.00-0.30) K/uL Imm/Tot Granulo (auto) 0.3 % D-Dimer Quant (PE/DVT) < 0.27 (0.00-0.50) ug/ml Sodium 140 (135-149) mmol/L Potassium 4.3 (3.6-5.1) mmol/L Chloride 106 (96-114) mmol/L Carbon Dioxide 26 (20-32) mmol/L Anion Gap 8 (7-15) mEq/L BUN 23 (7-30) mg/dL Creatinine 1.0 (0.5-1.5) mg/dL Estimated Creat Clear 78.03 Estimated GFR 89 ml/min Glucose 120 H (60-115) mg/dL Calcium 9.0 (8.4-10.6) mg/dL Total Bilirubin 0.3 (0.1-1.5) mg/dL AST 37 H (12-35) U/L ALT 53 H (4-50) U/L Alkaline Phosphatase 74 (40-150) U/L Troponin I < 0.01 (0.01-0.04) ng/mL C-Reactive Protein 1.6 H (0.5-1.0) mg/dL NT-Pro-B Natriuret Pep 68 (See Note) pg/mL Total Protein 7.2 (6.0-8.3) g/dL Albumin 4.1 (3.3-5.0) g/dL POC Troponin I 0.00 L (0.01-0.04) ng/ml Imaging Data Chest x-ray: Attestation: I have reviewed the pertinent imaging results. My impression: Normal chest x-ray. Mild cardiomegaly but no focal infiltrates, effusion, or rib injury. Radiologist's impression: IMPRESSION: Mild pulmonary vascular congestion. No significant edema. Dictated by Rachel Ramey MD @ 11/21/2024 5:54:06 AM (Electronically Signed) ECG Data Attestation: I personally reviewed and interpreted this ECG as follows: Prior ECG tracings: available for review (Multiple prior comparison EKGs, most recent October 10. Sinus rhythm with a rate of 98. Slight leftward axis but otherwise normal intervals. No significant ST or T-wave abnormalities. Stable EKG from multiple prior. ) Discharge Plan Discharge Clinical Impression: Pleuritic chest pain Patient Disposition: Home, Self-Care Condition: Improved Instructions: Chest Wall Pain (ED) Additional Instructions: As we discussed, there are no signs of heart attack, blood clot, abnormal heart rhythm or other dangerous etiology for your chest pain. I am glad that the Toradol, which is the anti-inflammatory pain medicine was helpful for you. This does make me think that your pain was related to something musculoskeletal such as a pulled muscle, inflamed nerve or inflamed lining of the lungs. This could be related to the pressure washing that you are doing. It could also be related to a virus. The good news is that there is nothing particular that needs to be done for this and the symptoms will not threaten your health. It is okay to use Tylenol and/or ibuprofen for discomfort annual have no restrictions for working at this time, you may return to full duty. Continue your regular medications as prescribed. If you have persistent symptoms, follow up with your primary care doctor to arrange additional testing. Activity Level: No Restrictions Discharge Diet: Regular Prescriptions: No Action Xarelto 20 mg tablet 20 mg PO DAILY albuterol Follow Up/Referrals: Provider,Not a Local [Primary Care Provider, Family Practice] Stand Alone Forms: [employer] Info Instructions
[2024-11-21 05:42] LABS: Alanine Aminotransferase* 53 U/L (4-50); Aspartate Amino Transferase* 37 U/L (12-35); Blood Urea Nitrogen* 23 mg/dL (7-30); Creatinine* 1.0 mg/dL (0.5-1.5); Est. Creatinine Clearance* 78.03; Estimated Glomerular Filt Rate 89 ml/min
[2024-11-21 05:43] LABS: Alkaline Phosphatase* 74 U/L (40-150); Anion Gap 8 mEq/L (7-15); Bilirubin Total* 0.3 mg/dL (0.1-1.5); Calcium* 9.0 mg/dL (8.4-10.6); Carbon Dioxide* 26 mmol/L (20-32); Glucose* 120 mg/dL (60-115); Total Protein* 7.2 g/dL (6.0-8.3)
[2024-11-21] MEDS: ASPIRIN 81 MG TAB.CHEW 324 MG PO (05:47)
[2024-11-21 05:55] LABS: Lymphocytes Absolute Auto 1.50 K/uL (0.90-2.90); NT Pro B Type NatriureticPept* 68 pg/mL (See Note); Slide Review Reflex No
[2024-11-21 06:27] LABS: D Dimer Quantitative* < 0.27 ug/ml (0.00-0.50)
== END 2024-11-21 06:41 | disposition home or self-care (01) ==
PROVIDERS: Emergency Provider Family Medicine
DX: R07.89 Other chest pain (principal); I48.91 Unspecified atrial fibrillation; Z79.01 Long term (current) use of anticoagulants; Z72.0 Tobacco use
CPT/HCPCS: 36415; 71046; 80053; 83880; 84484; 85025; 85379; 86140; 96374; 99284; A9270; J1885